=== PATIENT | male | born 1940 | race Caucasian/White ===

== ENCOUNTER 2019-03-14 13:23 | Inpatient (IN) | payer OTHER, MEDICARE ==
[2019-03-14 13:47] VITALS: BMI 29.6
--- NOTE | 2019-03-14 14:04 | PDOC ---
History of Present Illness - General Chief Complaint: Weakness Stated Complaint: Blood Sugar Problem/ LOSS OF APPETITE Time Seen by Provider: 03/14/19 13:59 History Source: Patient, Family Exam Limitations: No Limitations - History of Present Illness Initial Comments: 03/14/19 14:00 Titi Gary is a 79M with PMH Parkinson's c/b autonomic hypotension, CAD s/p CABG , pituitary tumor s/p resection on steroid supplementation, hypothydroidism on Synthroid, BPH, presenting with one week of AMS, decrease of appetite, diarrhea , frequent falls, sent by Dr. Forrester for evaluation. Patient and daughter at bedside. Was recently hospitalized for falls and trauma. Just returned home from physical rehab for Parkinsons's 2 weeks ago, has rn home health 12 hours per day. Per daughter, patient has been having episodes of confusion, agitation, and disorientation that have worsened over the last week, more commonly at night. Will get up out of bed on his own and wander around despite fall precautions and aide. Multiple falls at home, has residual injuries. Says he is on ASA but no AC. Has also been having a week of loose stools, now watery for one day. Wears diaper at home. PO intake poor, nothing but toast and water for a few days. Blood pressure rises and falls due to autonomic disease despite medications, some days feels too weak to ambulate, including today. Denies ONTIVEROS, dizziness, chest pain, SOB, palpitations, abdominal pain, urinary sx , fever. No known allergies. Neuro: Yris Urology: Ashlee Past History - Past Medical History Allergies/Adverse Reactions: Allergies Allergy/AdvReac Type Severity Reaction Status Date / Time No Known Allergies Allergy Verified 03/14/19 13:34 Home Medications: Ambulatory Orders Amlodipine Besylate 5 mg DAILY 03/14/19 Aspirin 81 mg DAILY 03/14/19 Carbidopa/Levodopa [Carbidopa-Levo ER 50-200 Tab] 1 tab TID 03/14/19 Cholecalciferol (Vitamin D3) [Vitamin D3] 1,000 unit DAILY 03/14/19 Finasteride 5 mg DAILY 03/14/19 Fludrocortisone Acetate 0.1 mg DAILY 03/14/19 Hydrocortisone 5 mg DAILY 03/14/19 Hydrocortisone 10 mg DAILY 03/14/19 Levothyroxine [Synthroid -] 75 mcg DAILY 03/14/19 Polyethylene Glycol 3350 17 gm DAILY 03/14/19 Rosuvastatin [Crestor -] 40 mg DAILY 03/14/19 Testosterone Cypionate 200 vial ASDIR 03/14/19 Ubidecarenone [Co Q-10] 30 mg DAILY 03/14/19 Cardiac Disorders: Yes (CAD) COPD: Yes Other medical history: Parkinson, Osteoporosis, hypopituitarism, arthlgia - Surgical History Cardiac Surgery: Yes (Quad bipass) - Psycho Social/Smoking Cessation Hx Smoking History: Former smoker Have you smoked in the past 12 months: Yes If you are a former smoker, when did you quit?: 1967 Information on smoking cessation initiated: No Hx Alcohol Use: No Drug/Substance Use Hx: No Review of Systems - Review of Systems Able to Perform ROS?: Yes Constitutional: Yes: Weakness. No: Chills, Fever HEENTM: Yes: Hearing Loss. No: Eye Pain, Blurred Vision, Mouth Pain, Dental Problems Respiratory: Yes: Cough. No: Orthopnea, Shortness of Breath, Stridor, Wheezing Cardiac (ROS): Yes: Edema. No: Chest Pain, Lightheadedness, Palpitations, Syncope ABD/GI: Yes: Diarrhea, Poor Appetite, Poor Fluid Intake. No: Constipated, Difficulty Swallowing, Nausea, Vomiting : No: Symptoms Reported Musculoskeletal: No: Symptoms Reported Integumentary: Yes: Bruising (arms from falls), Lesions Neurological: Yes: Tremors, Weakness, Unsteady Gait, Ataxia. No: Headache, Numbness, Paresthesia, Dizziness Endocrine: No: Symptoms Reported Hematologic/Lymphatic: Yes: Easy Bruising All Other Systems: Reviewed and Negative *Physical Exam - Vital Signs Last Vital Signs Temp Pulse Resp BP Pulse Ox 98.2 F 70 16 79/49 L 97 03/14/19 13:36 03/14/19 13:36 03/14/19 13:36 03/14/19 13:36 03/14/19 13:36 - Physical Exam General Appearance: Yes: Nourished, Appropriately Dressed, Apparent Distress HEENT: positive: EOMI, Symmetrical, Muffled/Hoarse voice, Hearing Decreased. negative: JORGE ALBERTO (L pupil fixed mydriasis), Normal Voice, Pharynx Normal ( xerostomia), Scleral Icterus (R), Scleral Icterus (L), Pharyngeal Erythema, Tonsillar Exudate, Tonsillar Erythema, Thrush Neck: positive: Trachea midline, Supple. negative: Tender, Carotid bruit, Decreased range of motion, Lymphadenopathy (R), Lymphadenopathy (L) Respiratory/Chest: positive: Lungs Clear, Normal Breath Sounds. negative: Chest Tender, Respiratory Distress, Accessory Muscle Use, Crackles, Rales, Rhonchi, Stridor, Wheezing Cardiovascular: positive: Regular Rhythm, Regular Rate Gastrointestinal/Abdominal: positive: Normal Bowel Sounds, Flat, Soft. negative : Tender, Organomegaly, Pulsatile Mass, Distended, Guarding, Rebound Musculoskeletal: positive: Normal Inspection. negative: CVA Tenderness, Decreased Range of Motion, Vertebral Tenderness Extremity: positive: Normal Capillary Refill, Normal Range of Motion, Pelvis Stable, Pedal Edema (3+), Swelling, Other (no bony tenderness or deformities noted to arms or legs). negative: Normal Inspection (several ecchymoses in various stages of healing noted to both arms and hands, L forearm ulceration), Tender, Calf Tenderness Integumentary: positive: Normal Color, Dry, Warm, Ecchymosis (noted to arms). 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 Too weak to ambulate but moving legs spontaneously. Alert, oriented, speaking in intelligible and logical sentences without thought deficit. Memory testing not performed at this time.) ED Treatment Course - LABORATORY CBC & Chemistry Diagram: 03/15/19 05:30 03/15/19 11:24 Medical Decision Making - Medical Decision Making 03/14/19 14:00 Titi Gary is a 79M with PMH Parkinson's c/b autonomic hypotension, CAD s/p CABG , pituitary tumor s/p resection on steroid supplementation, hypothydroidism on Synthroid, presenting with one week of AMS, decrease of appetite, diarrhea, frequent falls, sent by Dr. Forrester for evaluation. Presentation concerning for AMS in an elderly patient, plus multiple recent falls. High concern for ICH vs. UTI vs. PNA. Will need to role out these causes before determining evidence of worsening Parkinson's disease i.e sundowning vs. dementia. CMP CBC CP Coags UA/UC ECG CXR XR pelvis CT head Labs notable for: - CBC WNL - K 2.8 - BNP 4381 - TSH 0.29 - Free T4 1.51 Repleting potassium with 40mg PO solution. Pending CT head and CXR/pelvis XR at this time. 03/14/19 17:[address] shows no intracranial pathology. C-spine CT shows no fracture CXR shows elevated R hemidiaphragm with no infiltrates or consolidations Evaluation for PNA, HF, ICH all negative. Patient unable to provide urine sample , will straight cath for UA/UC. If UA clean, no obvious infectious or vascular source of AMS/confusion noted. Will admit for weakness, AMS, and high fall risk, patient unable to ambulate or take care of himself appropriately. 03/14/19 18:30 Discussed results with patient and daughter at bedside. Both agree that patient does not need admission at this time given that there is no pathology noted in labs, CXR, CT head. Discussed that patient is not a safe discharge home if he continues to have confusion and AMS at night, high fall risk. Daughter explained that patient home health aide is present at night to take care of patient. Patient wises to return home after UA complete. Discussed patient unwillingness to be admitted with attending. Attending contacted PMD Dr. Forrester with patient, discussion over admission concluded with patient agreeing to stay for further evaluation and neurological workup inpatient. Plan for admission to tele for hypokalemia, unwitnessed falls/syncope , AMS, failure to thrive, weakness. 03/14/19 19:[address] Gagnon regarding patient, accepted to tele under Dr. Mondragon. Discharge - Discharge Information Problems reviewed: Yes Clinical Impression/Diagnosis: Falls frequently, Hypokalemia Altered mental status Qualifiers: Altered mental status type: unspecified Qualified Code(s): R41.82 - Altered mental status, unspecified Condition: Stable Disposition: HOME - Follow up/Referral - Patient Discharge Instructions - Post Discharge Activity
--- NOTE | 2019-03-14 15:24 | EKG ---
Test Reason : Blood Pressure : / mmHG Vent. Rate : 071 BPM Atrial Rate : 055 BPM P-R Int : 000 ms QRS Dur : 120 ms QT Int : 462 ms P-R-T Axes : 000 -18 026 degrees QTc Int : 502 ms POOR DATA QUALITY, INTERPRETATION MAY BE ADVERSELY AFFECTED SINUS RHYTHM LEFT VENTRICULAR HYPERTROPHY WITH QRS WIDENING ABNORMAL ECG Confirmed by PATRICIA ANDERSON MD ([id number]) on 03/14/2019 3:24:05 PM Referred By: Confirmed By:PATRICIA ANDERSON MD
[2019-03-14 15:35] LABS: BASO % 0.4 % (0-2.0); EOS % 0.4 % (0-4.5); HEMOGLOBIN 11.9 GM/dL (11.7-16.9); LYMPH % 6.1 % (8-40); MCH 29.5 pg (25.7-33.7); MEAN CELL VOLUME 86.6 fl (80-96); MEAN PLT VOLUME 7.6 fl (7.5-11.1); MONO % 7.1 % (3.8-10.2); PLATELET COUNT 315 K/MM3 (134-434); RBC 4.04 M/mm3 (4.00-5.60); RDW 15.4 % (11.9-15.9)
[2019-03-14 15:38] LABS: INR 1.18 (0.83-1.09); MAGNESIUM 1.8 mg/dL (1.8-2.4)
[2019-03-14 15:40] LABS: ACTIVATED PTT 25.4 SECONDS (25.2-36.5)
[2019-03-14 16:23] LABS: ALBUMIN 2.8 g/dl (3.4-5.0); BILIRUBIN,TOTAL 0.7 mg/dL (0.2-1); BLOOD UREA NITROGEN 17.6 mg/dL (7-18); CREATININE 2.2 mg/dL (0.55-1.3); TOT PROT 6.3 g/dl (6.4-8.2)
[2019-03-14 16:25] LABS: POTASSIUM 2.8 mmol/L (3.5-5.1)
[2019-03-14] MEDS ORDERED: POTASSIUM CHLORIDE ORAL LIQUID 20 MEQ/15 ML PO ONE (16:28)
[2019-03-14] MEDS ORDERED: POTASSIUM CHLORIDE ORAL LIQUID 20 MEQ/15 ML ONE (16:28)
--- NOTE | 2019-03-14 19:13 | PN ---
Teaching Attending Note Name of Resident: Oscar Mccormick ATTENDING PHYSICIAN STATEMENT I saw and evaluated the patient. I reviewed the resident's note and discussed the case with the resident. I agree with the resident's findings and plan as documented. SUBJECTIVE: Patient is a 79 year old man with PMH Parkinson's (complicated by autonomic hypotension), CAD s/p CABG, Pituitary tumor s/p resection on steroid supplementation and Hypothydroidism presenting with one week of AMS, poor appetite, diarrhea and frequent falls. Was sent by Dr. Forrester for evaluation. Patient was recently hospitalized for falls and trauma. Just returned home from physical rehab for Parkinson's 2 weeks ago. Has home agent 12 hours per day. Per daughter, patient has been having episodes of confusion, agitation, and disorientation that have worsened over the last week, more commonly at night. Will get up out of bed on his own and wander around despite fall precautions and aide. Multiple falls at home - has residual injuries. Says he is on ASA but no AC. Has also been having a week of loose stools, now watery for one day. Wears diapers at home. Oral intake has been poor - nothing but toast and water for a few days. Blood pressure rises and falls due to autonomic disease despite medications, some days feels too weak to ambulate, including today. Denies headache, chest pain, SOB, palpitations, abdominal pain, urinary symptoms, chills or fever. Denies tobacco, alcohol or illicit drug use. Was recently on antibiotics for UTI. Noted to have urinary retention in the ER. FH of brain tumor in his mother. OBJECTIVE: Alert Vital Signs Period Temp Pulse Resp BP Sys/Miguel Pulse Ox Last 24 Hr 98.2 F-98.3 F 69-70 16-17 79-106/49-54 95-97 HEENT: No Jaundice, eye redness or discharge, PERRLA, EOMI. Normocephalic, atraumatic. External ears are normal and hearing is grossly intact. No nasal discharge. Neck: Supple, nontender. No palpable adenopathy or thyromegaly. No JVD Chest: Good effort. Clear to auscultation and percussion. Heart: Regular. No S3, rub or murmur Abdomen: Not distended, soft, nontender and no HSM. No rebound or guarding. Normal bowel sounds. Ext: Peripheral pulses intact. Leg edema. Skin: Warm and dry. No petechiae, rash or ecchymosis. Neuro: Alert. Oriented x3. CN 2-12 grossly intact. Sensation grossly intact in all four extremities and DTR are symmetric. Psych: Appropriate mood and affect. Good insight. Current Medications Generic Name Dose Route Start Last Admin Trade Name Jose Eq PRN Reason Stop Dose Admin Heparin Sodium (Porcine) 5,000 unit 03/14/19 19:30 Heparin - SQ TID [facility] Dextrose/Sodium Chloride 40 meq in 1,000 mls @ 75 mls/hr 03/14/19 19:30 Dextrose 5%-Normal Saline+40 Meq Kcl - IV ASDIR [facility] Abnormal Lab Results 03/14/19 03/14/19 03/14/19 15:00 15:00 15:00 Hct Absolute Neuts (auto) Neutrophils % Lymphocytes % PT with INR 14.00 H INR 1.18 H Potassium 2.8 L* Anion Gap 7 L Creatinine 2.2 H Calcium 8.0 L Phosphorus AST 48 H ALT 12 L Creatine Kinase 476 H B-Natriuretic Peptide Total Protein 6.3 L Albumin 2.8 L TSH Free T4 1.51 H 03/14/19 03/14/19 03/14/19 15:00 15:00 15:00 Hct 35.0 L Absolute Neuts (auto) 8.6 H Neutrophils % 86.0 H Lymphocytes % 6.1 L PT with INR INR Potassium Anion Gap Creatinine Calcium Phosphorus 2.0 L AST ALT Creatine Kinase B-Natriuretic Peptide 4381.6 H Total Protein Albumin TSH 0.29 L Free T4 ASSESSMENT AND PLAN: 1. Altered mental status/Multiple falls - Etiology unclear, but may be multifactorial. Hypotension due to autonomic dysfunction a likely culprit. No acute pathology on head CT. CT scan of C-spine showed C4-5, C5-6 degenerative central canal stenosis but no fracture. CXR shows poor inspiration, cardiomegaly and elevated right hemidiaphragm, but no obvious infiltrate. Implement fall precautions and consult PT. Get ECHO. Rhabdomyolysis may be due to trauma from falls and/or hypophosphatemia. Hypokalemai likely due to diarrhea and poor intake. Will do stool studies including C.diff to investigate diarrhea, give IV KCL, Neutraphos and get CT abdomen/pelvis. Reduce synthroid dose. Urinalysis and EKG pending. Will continue comprehensive care for all of patients comorbid conditions including supportive measures for Parkinson's. 2. Hypoalbuminemia - Possibly due to combined effects of malnutrition and inflammation associated with comorbid chronic conditions. 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 3. PO - Likely partly due to rhabdomyolysis. Will get kidney sonogram, PTH, hydrate gently and monitor urine output. Will consult nephrology and avoid nephrotoxic agents such as NSAIDS, aminoglycosides, contrast dyes and certain Alternative medicine products. 4. Anemia - Likely multifactorial. Will do basic anemia work up including serial stool guaiacs, reticulocyte count and iron studies. 5. DVT prophylaxis - Heparin 5000u sq tid. 6. Advance directives - Full code
[2019-03-14] MEDS ORDERED: D5-NS + 40 MEQ KCL - 40 MEQ/1,000 ML INFUS.BAG IV SCH (19:30)
[2019-03-14] MEDS ORDERED: HYDROCORTISONE 5 MG TABLET PO ONE (19:32)
[2019-03-14] MEDS ORDERED: FINASTERIDE 5 MG TABLET (FP) PO ONE (19:33)
[2019-03-14] MEDS ORDERED: NAPH,MB-DB/K PH,MBDB POWDER PACKET PO ONE (19:40)
[2019-03-14] MEDS: HEPARIN NA (PORCINE) 5,000 UNITS/ML 1ML VIAL SQ SCH (19:50)
[2019-03-14] MEDS ORDERED: SODIUM CHLORIDE 1,000 ML IV SCH (21:15)
--- NOTE | 2019-03-14 21:26 | HP ---
CHIEF COMPLAINT: AMS PCP: Dr. Valerio HISTORY OF PRESENT ILLNESS: This is a 79 y/o male w/ PMHx of Virginie Figueroa parkinson's disease, CAD (s/p quadruple bypass), pituitary tumor (s/p resection 1997),hypothyroidism (on synthroid 75mcg) who presents with 1 week of AMS, diarrhea and falls. As per the patients daughter, the pt has had increasing episodes of confusion during the night for the past week, She states the pt often wakes up from sleep screaming and is disoriented. She also states the pt has been having 3 episodes of watery, foul smelling diarrhea/day for the last five days. The pt was taking an antibiotic for a UTI and finished a month ago. The pt has also had decreased po intake and fluid intake since his symptoms began. He has also fallen 5 times over the past week associated with dizziness before the fall. He normally uses a walker or wheelchair to ambulate due to his Parkinsons. He also reports increased swelling in his lower extremities. He is unsure if he hit his head and has sustained injuries from his falls. He denies recent fever, chills, chest pain, ONTIVEROS, SOB, changes in bladder habits, vision changes. Pt lives at home with his partner and has a 12 hour home health aide. 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 ER course was notable for: (1) Hypokalemia (2.8), Cr- 2.2 (worse than baseline), PO4- 2, AST- 48, Trop negative (2) TSH- 0.29, FT4: 1.51, BNP- 4381.6, CK-[address]- showed C4-5, C5 -6 degenerative central canal stenosis negative for fx's, CT head- negative for acute intracranial bleed, CXR- elevated Rt hemidiaphragm enlarged heart (3)40 KCL PO given in ED, ordered 3 of riders, UA/tox ordered Recent Travel: denies PAST SURGICAL HISTORY: pituitary resection, quadruple bypass Allergies No Known Allergies Allergy (Verified 03/14/19 13:34) HOME MEDICATIONS: Home Medications Medication Instructions Recorded Aspirin 81 mg DAILY 03/14/19 Carbidopa/Levodopa [Carbidopa-Levo 1 tab TID 03/14/19 ER 50-200 Tab] Finasteride 5 mg DAILY 03/14/19 Fludrocortisone Acetate 0.1 mg DAILY 03/14/19 Hydrocortisone 5 mg DAILY 03/14/19 Hydrocortisone 10 mg DAILY 03/14/19 Levothyroxine [Synthroid -] 75 mcg DAILY 03/14/19 Polyethylene Glycol 3350 17 gm DAILY 03/14/19 Rosuvastatin [Crestor -] 40 mg DAILY 03/14/19 Ubidecarenone [Co Q-10] 30 mg DAILY 03/14/19 REVIEW OF SYSTEMS Negative except whats listed in HPI PHYSICAL EXAMINATION Vital Signs - 24 hr 03/14/19 03/14/19 03/14/19 13:36 14:00 14:15 Temperature 98.2 F 98.3 F Pulse Rate 70 Pulse Rate [ 69 Right Brachial] Respiratory 16 17 Rate Blood Pressure 79/49 L Blood Pressure 106/54 L [Right Arm] O2 Sat by Pulse 97 97 95 Oximetry (%) GENERAL: Awake, alert, and fully oriented, in no acute distress. HEAD: Normal with no signs of trauma. LUNGS: Breath sounds equal, clear to auscultation bilaterally. No wheezes, and no crackles. No accessory muscle use. HEART: Regular rate and rhythm, normal S1 and S2 without murmur, rub or gallop. ABDOMEN: Soft, nontender, not distended, normoactive bowel sounds, no guarding, no rebound, no masses. UPPER EXTREMITIES: 2+ pulses, warm, well-perfused. No cyanosis. No clubbing. No peripheral edema. LOWER EXTREMITIES: 2+ pulses, warm, well-perfused. 2/5 LE against resistance, able to lift legs on passive ROM (3/5), normal sensation. No calf tenderness. 2 + peripheral edema. NEUROLOGICAL: Cranial nerves II-XII intact. Normal speech. PSYCHIATRIC: Cooperative. Good eye contact. Appropriate mood and affect. SKIN: Warm, dry,bruising b/l arms. Laboratory Results - last 24 hr 03/14/19 03/14/19 03/14/19 14:01 15:00 15:00 WBC RBC Hgb Hct MCV MCH MCHC RDW Plt Count MPV Absolute Neuts (auto) Neutrophils % Lymphocytes % Monocytes % Eosinophils % Basophils % Nucleated RBC % PT with INR 14.00 H INR 1.18 H PTT (Actin FS) 25.4 Sodium Potassium Chloride Carbon Dioxide Anion Gap BUN Creatinine Est GFR (CKD-EPI)AfAm Est GFR (CKD-EPI)NonAf POC Glucometer 72 Random Glucose Calcium Phosphorus Magnesium 1.8 Total Bilirubin AST ALT Alkaline Phosphatase Creatine Kinase Creatine Kinase Index CK-MB (CK-2) Troponin I B-Natriuretic Peptide Total Protein Albumin TSH Free T4 1.51 H 03/14/19 03/14/19 03/14/19 15:00 15:00 15:00 WBC 10.0 RBC 4.04 Hgb 11.9 Hct 35.0 L MCV 86.6 MCH 29.5 MCHC 34.0 RDW 15.4 Plt Count 315 MPV 7.6 Absolute Neuts (auto) 8.6 H Neutrophils % 86.0 H Lymphocytes % 6.1 L Monocytes % 7.1 Eosinophils % 0.4 Basophils % 0.4 Nucleated RBC % 0 PT with INR INR PTT (Actin FS) Sodium 139 Potassium 2.8 L* Chloride 100 Carbon Dioxide 32 Anion Gap 7 L BUN 17.6 Creatinine 2.2 H Est GFR (CKD-EPI)AfAm 32.06 Est GFR (CKD-EPI)NonAf 27.67 POC Glucometer Random Glucose 76 Calcium 8.0 L Phosphorus Magnesium Total Bilirubin 0.7 AST 48 H ALT 12 L Alkaline Phosphatase 98 Creatine Kinase 476 H Creatine Kinase Index 0.7 CK-MB (CK-2) 3.5 Troponin I 0.02 B-Natriuretic Peptide 4381.6 H Total Protein 6.3 L Albumin 2.8 L TSH Free T4 03/14/19 15:00 WBC RBC 0. Hgb Hct MCV MCH MCHC RDW Plt Count MPV Absolute Neuts (auto) Neutrophils % Lymphocytes % Monocytes % Eosinophils % Basophils % Nucleated RBC % PT with INR INR PTT (Actin FS) Sodium Potassium Chloride Carbon Dioxide Anion Gap BUN Creatinine Est GFR (CKD-EPI)AfAm Est GFR (CKD-EPI)NonAf POC Glucometer Random Glucose Calcium Phosphorus 2.0 L Magnesium Total Bilirubin AST ALT Alkaline Phosphatase Creatine Kinase Creatine Kinase Index CK-MB (CK-2) Troponin I B-Natriuretic Peptide Total Protein Albumin TSH 0.29 L Free T4 ASSESSMENT/PLAN: This is a 79 y/o male w/ PMHx of Virginie Figueroa parkinson's disease, CAD (s/p quadruple bypass), pituitary tumor (s/p resection 1997),hypothyroidism (on synthroid 75mcg) who presents with 1 week of AMS, diarrhea and falls. As per the patients daughter, the pt has had increasing episodes of confusion during the night for the past week, She states the pt often wakes up from sleep screaming and is disoriented. #Presyncopal fall -> likely 2/2 Shy norman hx/dehydration/Iatrogenic Hyperthyroidism - admit to tele confirm lack of arrythmia given TSH - CT head negative for acute intracranial hemmorhage, CT cervical spine- C4-5, C5-6 degenerative central canal stenosis with signs of fracture. CT hip/pelvis is pending. - IVF hydration given recent diarrhea - orthostatic vitals prior to fluids given negative - TSH-0.29, FT4- 1.51 signifying iatrogenic hyperthyroidism given pt has no pituitary. For pt to be still producing TSH, likely ectopic production elsewhere. Would need radioactive uptake scan to assess but likely already been done years ago as o/p. - will decrease synthroid to 50mcg - Consult endo (Dr. Menjivar) for recs. - Seizure/Fall precautions implemented - PT eval in AM - echo to eval cardiac valvular function - ekg depicting prolonged QTc >500 so will hold all prolonging agents and rpt EKG in AM. #Diarrhea -> likely colitis/rule out c diff - doubt ischemic at this time given cx findings and lack of AF hx, althought pt has risk factor CAD. - CT Abd pelvis without contrast- no signs of colitis, diverticulitis, just diverticulosis. - no abx at this time, without sign of infn or fever, along side of ? c diff. - ordered c diff, fecal calprotectin, stool c&s, ova and parasites in the interim. PO on CKD -> likely intra-renal 2/2 rhabdomyolysis - possibly due to recent trauma or hypophosphatemia 2/2 diarrhea and poor po intake - CK-476m will rpt CK with morning labs to ensure its improving. - gentle hydration IV NS 42 cc/hr given Cardiac hx - hold nephrotoxic agents, no contrast agents at this time - renal sono, PTH - Renal consulted (Dr. Correa) for PO on CKD recommendations. - family states PCP would like nephro to eval the pt. - BNP elevated likely due to poor renal clearance - hypophosphatemia/hypokalemia repleted, Na phos 2 packets given, 3 runs of K rider ordered - will rpt lytes in AM - poor ekg quality due to pt shaking (per pt's daughter). - will rpt EKG once on tele DVT PPX : Heparin 5K TID Visit type - Emergency Visit Emergency Visit: Yes ED Registration Date: 03/14/19 Care time: The patient presented to the Emergency Department on the above date and was hospitalized for further evaluation of their emergent condition. - New Patient This patient is new to me today: Yes Date on this admission: 03/17/19 - Critical Care Critical Care patient: No ATTENDING PHYSICIAN STATEMENT I saw and evaluated the patient. I reviewed the resident's note and discussed the case with the resident. I agree with the resident's findings and plan as documented. SUBJECTIVE: OBJECTIVE: ASSESSMENT AND PLAN:
--- NOTE | 2019-03-14 22:28 | PDOC ---
Documentation entered by Claudio Gonzalez SCRIBE, acting as scribe for Wicho Bradford MD. Wicho Bradford MD: This documentation has been prepared by the Carlos gonzalez Daniel, SCRIBE, under my direction and personally reviewed by me in its entirety. I confirm that the documentation accurately reflects all work, treatment, procedures, and medical decision making performed by me. Attending Attestation - Resident Resident Name: EmilyDaquan - ED Attending Attestation I have performed the following: I have examined & evaluated the patient, The case was reviewed & discussed with the resident, I agree w/resident's findings & plan, Exceptions are as noted - HPI HPI: 03/14/19 14:57 The patient is a 79 year old with a past medical history of Parkinson's c/b autonomic hypotension, CAD s/p CABG, pituitary tumor s/p resection on steroid supplementation, hypothyroidism here today for evaluation of AMS, diarrhea, and multiple falls. The patient was discharged from rehab recently after a fall and has been noted by family and home health aide be more agitated and confused in the past week. Patient reports that in the past week he has had multiple episodes of watery diarrhea, felt weak and tired, and has had multiple falls but is not able to provide a good reason for his falls. Unknown LOC. Family also notes that the patient has had poor PO intake over the past week. Patient denies headache, lightheadedness, focal weakness/numbness. Denies fever , chills. Denies chest pain, shortness of breath. Denies nausea, vomiting, abdominal pain. Allergies: NKA PCP: Elsa Forrester - Physicial Exam PE: 03/14/19 14:58 GENERAL: Awake, alert, and fully oriented, in no acute distress. Chronically ill appearing. HEAD: No signs of trauma EYES: PERRLA, EOMI, sclera anicteric, conjunctiva clear ENT: Hearing grossly normal, nares patent, oropharynx clear without exudates. MM. NECK: Normal ROM, supple, no lymphadenopathy, JVD, or masses BACK: No midline cervical, thoracic, or lumbar ttp LUNGS: Breath sounds equal, clear to auscultation bilaterally. No wheezes, and no crackles HEART: Regular rate and rhythm, normal S1 and S2, no murmurs, rubs or gallops ABDOMEN: Soft, nontender, normoactive bowel sounds. No guarding, no rebound. No masses EXTREMITIES: Normal range of motion, no edema. No cords, erythema, or tenderness NEUROLOGICAL: +masked facies. Normal speech, cranial nerves intact, 5/5 strength in all 4 extremities, normal sensation to light touch in all 4 extremities, gait deferred SKIN: Multiple bruises in various stages of healing and superficial abrasions to entire body - Medical Decision Making 03/14/19 19:24 79yo M with MMP including parkinsons, recently DC from rehab weeks ago presents to the ED with failure to thrive. Vitals initially hypotensive but improved w/o intervention 110/70, consistent with known autonomic dysfx W/u remarkable for hypokalemia and PO to 2.2 CTH/c-spine neg UA pending Results discussed with Dr. 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
[2019-03-14] MEDS ORDERED: PT OWN MED DRAWER 7, Y5N ONE (22:51)
[2019-03-14] MEDS ORDERED: KCL 10 MEQ IVPB 10 MEQ/100 ML INFUS.BAG IVPB ONE (23:44)
[2019-03-14] MEDS ORDERED: HEPARIN NA (PORCINE) 5,000 UNITS/ML 1ML VIAL ONE (23:44)
[2019-03-14] MEDS ORDERED: CARBIDOPA/LEVODOPA 25/100 TABLET (FP) ONE (23:44)
[2019-03-15] MEDS: KCL 10 MEQ IVPB 10 MEQ/100 ML INFUS.BAG IVPB SCH ×8 (00:01→22:16)
[2019-03-15] MEDS ORDERED: KCL 10 MEQ IVPB 10 MEQ/100 ML INFUS.BAG IVPB ONE ×6 (02:43→16:38)
[2019-03-15] MEDS ORDERED: HEPARIN NA (PORCINE) 5,000 UNITS/ML 1ML VIAL ONE (06:17)
[2019-03-15] MEDS: HEPARIN NA (PORCINE) 5,000 UNITS/ML 1ML VIAL SQ SCH ×3 (06:29→21:32)
[2019-03-15 06:30] LABS: BASO % 0.9 % (0-2.0); EOS % 3.3 % (0-4.5); HEMATOCRIT 30.5 % (35.4-49); HEMOGLOBIN 10.6 GM/dL (11.7-16.9); LYMPH % 23.4 % (8-40); MCH 29.8 pg (25.7-33.7); MCHC 34.7 g/dl (32.0-35.9); MEAN CELL VOLUME 85.9 fl (80-96); MEAN PLT VOLUME 7.1 fl (7.5-11.1); MONO % 7.7 % (3.8-10.2); NEUT % 64.7 % (42.8-82.8); PLATELET COUNT 270 K/MM3 (134-434); RBC 3.55 M/mm3 (4.00-5.60); RDW 15.3 % (11.9-15.9)
[2019-03-15] MEDS: LEVOTHYROXINE NA 50 MCG TABLET (FP) PO SCH ×2 (06:30→09:09)
[2019-03-15 06:56] LABS: ALBUMIN 2.2 g/dl (3.4-5.0); BILIRUBIN,TOTAL 0.4 mg/dL (0.2-1); BLOOD UREA NITROGEN 16.8 mg/dL (7-18); CALCIUM 7.2 mg/dL (8.5-10.1); CREATININE 2.6 mg/dL (0.55-1.3); PHOSPHOROUS 1.4 mg/dL (2.5-4.9); TOT PROT 5.2 g/dl (6.4-8.2)
[2019-03-15 06:58] LABS: POTASSIUM 2.2 mmol/L (3.5-5.1)
[2019-03-15] MEDS ORDERED: SODIUM PHOSPHATE - 30 MM in DEXTROSE 5%-WATER - 250 ML IVPB ONE (09:51)
[2019-03-15] MEDS ORDERED: ASPIRIN 81 MG CHEWABLE TABLETS PO SCH (10:00)
[2019-03-15] MEDS ORDERED: amLODIPine BESYLATE 5 MG TABLET (FP) PO SCH (10:00)
[2019-03-15] MEDS ORDERED: UBIDECARENONE 30 MG PO SCH (10:00)
[2019-03-15] MEDS ORDERED: FINASTERIDE 5 MG TABLET (FP) PO SCH (10:00)
[2019-03-15] MEDS ORDERED: LEVOTHYROXINE NA 75 MCG TABLET (FP) PO SCH (10:00)
[2019-03-15] MEDS ORDERED: MUPIROCIN 2% TOPICAL OINTMENT FOR DECOLONIZATION NS SCH (10:00)
[2019-03-15] MEDS ORDERED: POTASSIUM CHLORIDE TABS 20 MEQ TABLET.ER (FP) PO ONE ×5 (10:00→17:27)
[2019-03-15] MEDS ORDERED: CHOLECALCIFEROL (VIT D3) 1,000 UNIT (25 MCG) TABLET PO SCH (10:00)
[2019-03-15] MEDS ORDERED: ASPIRIN 81 MG CHEWABLE TABLETS ONE (10:03)
[2019-03-15] MEDS ORDERED: POTASSIUM CHLORIDE TABS 10 MEQ TABLET.ER (FP) ONE ×2 (10:04→15:15)
[2019-03-15] MEDS ORDERED: amLODIPine BESYLATE 5 MG TABLET (FP) ONE (10:04)
--- NOTE | 2019-03-15 10:59 | ECHO ---
Name: JUANIS ABBOTT Exam:Adult Echocardiogram Study Date: 03/15/2019 08:35 AM Age: 79 yrs Reason For Study: Syncope w/u Height: 65 in Weight: 178 lb BSA: 1.9 m2 MMode/2D Measurements & Calculations IVSd: 1.5 cm Ao root diam: 2.6 cm LVIDd: 4.2 cm LA dimension: 5.0 cm LVIDs: 2.6 cm ACS: 1.9 cm LVPWd: 1.2 cm EDV(Teich): 79.0 ml LVOT diam: 2.0 cm ESV(Teich): 25.7 ml RV S Sebastien: 12.7 cm/sec Doppler Measurements & Calculations MV E max sebastien: 87.9 cm/sec Ao V2 max: 128.6 cm/sec MV A max sebastien: 83.4 cm/sec Ao max P.6 mmHg MV E/A: 1.1 Ao V2 mean: 87.4 cm/sec MV dec time: 0.17 sec Ao mean P.5 mmHg Ao V2 VTI: 26.2 cm SIVA(I,D): 2.5 cm2 SIVA(V,D): 2.0 cm2 LV V1 max P.1 mmHg MR max sebastien: 429.4 cm/sec LV V1 mean P.7 mmHg MR max P.8 mmHg LV V1 max: 87.9 cm/sec LV V1 mean: 60.9 cm/sec LV V1 VTI: 21.9 cm SV(LVOT): 65.6 ml TR max sebastien: 220.3 cm/sec TR max P.5 mmHg PA V2 max: 65.6 cm/sec Med Peak E' Sebastien: 9.6 cm/sec PA max P.7 mmHg Med E/e': 9.2 Lat Peak E' Sebastien: 7.9 cm/sec Lat E/e': 11.1 Left Ventricle Left ventricular systolic function is normal. Ejection Fraction = 55-60%. Right Ventricle The right ventricle is grossly normal size. The right ventricular systolic function is grossly normal . Atria The left atrium is moderately dilated. Mitral Valve The mitral valve is grossly normal. There is no mitral valve stenosis. There is mild mitral regurgita tion. Tricuspid Valve The tricuspid valve is normal in structure and function. There is mild tricuspid regurgitation. Aortic Valve There is mild aortic sclerosis.;. No hemodynamically significant valvular aortic stenosis. No aortic regurgitation is present. Pulmonic Valve The pulmonic valve is not well seen, but is grossly normal. There is no pulmonic valvular stenosis. Great Vessels The aortic root is normal size. Pericardium/Pleura There is no pericardial effusion. Interpretation Summary Left ventricular systolic function is normal. Ejection Fraction = 55-60%. The left atrium is moderately dilated. There is mild mitral regurgitation. There is mild tricuspid regurgitation. There is mild aortic sclerosis.; There is no pericardial effusion. MD [place] *Smith 03/15/2019 10:59 AM
--- NOTE | 2019-03-15 11:36 | EKG ---
Test Reason : Blood Pressure : / mmHG Vent. Rate : 073 BPM Atrial Rate : 073 BPM P-R Int : 198 ms QRS Dur : 116 ms QT Int : 432 ms P-R-T Axes : 068 -14 -38 degrees QTc Int : 475 ms POOR DATA QUALITY, INTERPRETATION MAY BE ADVERSELY AFFECTED NORMAL SINUS RHYTHM CANNOT RULE OUT ANTERIOR INFARCT , AGE UNDETERMINED NONSPECIFIC ST ABNORMALITY ABNORMAL ECG WHEN COMPARED WITH ECG OF 14-MAR-2019 23:20, PREMATURE SUPRAVENTRICULAR COMPLEXES ARE NO LONGER PRESENT Confirmed by OPAL DODSON MD ([id number]) on 03/15/2019 11:36:06 AM Referred By: Confirmed By:OPAL DODSON MD
--- NOTE | 2019-03-15 11:38 | EKG ---
Test Reason : Blood Pressure : / mmHG Vent. Rate : 071 BPM Atrial Rate : 071 BPM P-R Int : 184 ms QRS Dur : 116 ms QT Int : 466 ms P-R-T Axes : 004 -16 -17 degrees QTc Int : 506 ms SINUS RHYTHM WITH PREMATURE SUPRAVENTRICULAR COMPLEXES NONSPECIFIC ST ABNORMALITY PROLONGED QT ABNORMAL ECG POOR DATA QUALITY, INTERPRETATION MAY BE ADVERSELY AFFECTED Confirmed by OPAL DODSON MD ([id number]) on 03/15/2019 11:38:06 AM Referred By: Confirmed By:OPAL DODSON MD
[2019-03-15 11:39] LABS: URINE APPEARANCE CLEAR; URINE BILIRUBIN NEGATIVE (NEGATIVE); URINE COLOR YELLOW; URINE GLUCOSE (UA) NEGATIVE (NEGATIVE); URINE KETONE NEGATIVE (NEGATIVE); URINE LEUK ESTERASE 3+ (NEGATIVE); URINE NITRITE POSITIVE (NEGATIVE); URINE PROTEIN 2+ (NEGATIVE); URINE UROBILINOGEN 0.2 mg/dL (0.2-1.0); YEAST REVIEW (NEGATIVE)
--- NOTE | 2019-03-15 11:50 | CONSULT ---
Consultation: REQUESTING PROVIDER: CONSULT REQUEST: We have been asked to medically evaluate this patient for ( specify). HISTORY OF PRESENT ILLNESS: REVIEW OF SYSTEMS: CONSTITUTIONAL: Absent: fever, chills, diaphoresis, generalized weakness, malaise, loss of appetite, weight change HEENT: Absent: rhinorrhea, nasal congestion, throat pain, throat swelling, difficulty swallowing, mouth swelling, ear pain, eye pain, visual changes CARDIOVASCULAR: Absent: chest pain, syncope, palpitations, irregular heart rate, lightheadedness , peripheral edema RESPIRATORY: Absent: cough, shortness of breath, dyspnea with exertion, orthopnea, wheezing, stridor, hemoptysis GASTROINTESTINAL: Absent: abdominal pain, abdominal distension, nausea, vomiting, diarrhea, constipation, melena, hematochezia GENITOURINARY: Absent: dysuria, frequency, urgency, hesitancy, hematuria, flank pain, genital pain MUSCULOSKELETAL: Absent: myalgia, arthralgia, joint swelling, back pain, neck pain SKIN: Absent: rash, itching, pallor HEMATOLOGIC/IMMUNOLOGIC: Absent: easy bleeding, easy bruising, lymphadenopathy, frequent infections ENDOCRINE: Absent: unexplained weight gain, unexplained weight loss, heat intolerance, cold intolerance NEUROLOGIC: Absent: headache, focal weakness or paresthesias, dizziness, unsteady gait, seizure, mental status changes, bladder or bowel incontinence PSYCHIATRIC: Absent: anxiety, depression, suicidal or homicidal ideation, hallucinations. PHYSICAL EXAMINATION Vital Signs - 24 hr 03/14/19 03/14/19 03/14/19 13:36 14:00 14:15 Temperature 98.2 F 98.3 F Pulse Rate 70 Pulse Rate [ 69 Right Brachial] Pulse Rate [ Right Radial] Respiratory 16 17 Rate Blood Pressure 79/49 L Blood Pressure 106/54 L [Right Arm] O2 Sat by Pulse 97 97 95 Oximetry (%) 03/14/19 03/14/19 03/15/19 19:30 23:05 01:20 Temperature Pulse Rate Pulse Rate [ 87 72 68 Right Brachial] Pulse Rate [ Right Radial] Respiratory 20 20 17 Rate Blood Pressure Blood Pressure 116/50 L 97/47 L 122/68 [Right Arm] O2 Sat by Pulse 95 95 95 Oximetry (%) 03/15/19 03/15/19 03/15/19 04:28 07:18 07:25 Temperature 97.6 F 98.4 F 98.5 F Pulse Rate Pulse Rate [ 77 72 Right Brachial] Pulse Rate [ 75 Right Radial] Respiratory 20 20 15 Rate Blood Pressure Blood Pressure 121/57 L 123/71 130/66 [Right Arm] O2 Sat by Pulse 97 95 94 L Oximetry (%) 03/15/19 03/15/19 07:35 12:26 Temperature Pulse Rate Pulse Rate [ 78 Right Brachial] Pulse Rate [ 90 78 Right Radial] Respiratory 20 20 Rate Blood Pressure Blood Pressure 130/71 131/66 [Right Arm] O2 Sat by Pulse 99 100 Oximetry (%) GENERAL: Awake, alert, and fully oriented, in no acute distress. HEAD: Normal with no signs of trauma. EYES: Pupils equal, round and reactive to light, extraocular movements intact, sclera anicteric, conjunctiva clear. No lid lag. EARS, NOSE, THROAT: Ears normal, nares patent, oropharynx clear without exudates. Moist mucous membranes. NECK: Normal range of motion, supple without lymphadenopathy, JVD, or masses. LUNGS: Breath sounds equal, clear to auscultation bilaterally. No wheezes, and no crackles. No accessory muscle use. HEART: Regular rate and rhythm, normal S1 and S2 without murmur, rub or gallop. ABDOMEN: Soft, nontender, not distended, normoactive bowel sounds, no guarding, no rebound, no masses. No hepatomegaly or splenomegaly. MUSCULOSKELETAL: Normal range of motion at all joints. No bony deformities or tenderness. No CVA tenderness. UPPER EXTREMITIES: 2+ pulses, warm, well-perfused. No cyanosis. No clubbing. Cap refill <2 seconds. No peripheral edema. LOWER EXTREMITIES: 2+ pulses, warm, well-perfused. No calf tenderness. No peripheral edema. NEUROLOGICAL: Cranial nerves II-XII intact. Normal speech. Normal gait. PSYCHIATRIC: Cooperative. Good eye contact. Appropriate mood and affect. SKIN: Warm, dry, normal turgor, no rashes or lesions noted. Laboratory Results - last 24 hr 03/14/19 03/14/19 03/14/19 14:01 15:00 15:00 WBC RBC Hgb Hct MCV MCH MCHC RDW Plt Count MPV Absolute Neuts (auto) Neutrophils % Lymphocytes % Monocytes % Eosinophils % Basophils % Nucleated RBC % PT with INR 14.00 H INR 1.18 H PTT (Actin FS) 25.4 Sodium Potassium Chloride Carbon Dioxide Anion Gap BUN Creatinine Est GFR (CKD-EPI)AfAm Est GFR (CKD-EPI)NonAf POC Glucometer 72 Random Glucose Calcium Phosphorus Magnesium 1.8 Total Bilirubin AST ALT Alkaline Phosphatase Creatine Kinase Creatine Kinase Index CK-MB (CK-2) Troponin I B-Natriuretic Peptide Total Protein Albumin TSH Free T4 1.51 H Urine Color Urine Appearance Urine pH Ur Specific [place] Urine Protein Urine Glucose (UA) Urine Ketones Urine Blood Urine Nitrite Urine Bilirubin Urine Urobilinogen Ur Leukocyte Esterase Urine WBC (Auto) Urine RBC (Auto) Urine Casts (Auto) U Epithel Cells (Auto) Urine Bacteria (Auto) Urine Yeast (Auto) Opiates Screen Methadone Screen Barbiturate Screen Phencyclidine Screen Ur Amphetamines Screen MDMA (Ecstasy) Screen Benzodiazepines Screen Cocaine Screen U Marijuana (THC) Screen 03/14/19 03/14/19 03/14/19 15:00 15:00 15:00 WBC 10.0 RBC 4.04 Hgb 11.9 Hct 35.0 L MCV 86.6 MCH 29.5 MCHC 34.0 RDW 15.4 Plt Count 315 MPV 7.6 Absolute Neuts (auto) 8.6 H Neutrophils % 86.0 H Lymphocytes % 6.1 L Monocytes % 7.1 Eosinophils % 0.4 Basophils % 0.4 Nucleated RBC % 0 PT with INR INR PTT (Actin FS) Sodium 139 Potassium 2.8 L* Chloride 100 Carbon Dioxide 32 Anion Gap 7 L BUN 17.6 Creatinine 2.2 H Est GFR (CKD-EPI)AfAm 32.06 Est GFR (CKD-EPI)NonAf 27.67 POC Glucometer Random Glucose 76 Calcium 8.0 L Phosphorus Magnesium Total Bilirubin 0.7 AST 48 H ALT 12 L Alkaline Phosphatase 98 Creatine Kinase 476 H Creatine Kinase Index 0.7 CK-MB (CK-2) 3.5 Troponin I 0.02 B-Natriuretic Peptide 4381.6 H Total Protein 6.3 L Albumin 2.8 L TSH Free T4 Urine Color Urine Appearance Urine pH Ur Specific [place] Urine Protein Urine Glucose (UA) Urine Ketones Urine Blood Urine Nitrite Urine Bilirubin Urine Urobilinogen Ur Leukocyte Esterase Urine WBC (Auto) Urine RBC (Auto) Urine Casts (Auto) U Epithel Cells (Auto) Urine Bacteria (Auto) Urine Yeast (Auto) Opiates Screen Methadone Screen Barbiturate Screen Phencyclidine Screen Ur Amphetamines Screen MDMA (Ecstasy) Screen Benzodiazepines Screen Cocaine Screen U Marijuana (THC) Screen 03/14/19 03/15/19 03/15/19 15:00 05:30 05:30 WBC 8.0 RBC 3.55 L Hgb 10.6 L Hct 30.5 L MCV 85.9 MCH 29.8 MCHC 34.7 RDW 15.3 Plt Count 270 MPV 7.1 L Absolute Neuts (auto) 5.2 Neutrophils % 64.7 D Lymphocytes % 23.4 D Monocytes % 7.7 Eosinophils % 3.3 D Basophils % 0.9 Nucleated RBC % 0 PT with INR INR PTT (Actin FS) Sodium 142 Potassium 2.2 L* Chloride 104 Carbon Dioxide 30 Anion Gap 8 BUN 16.8 Creatinine 2.6 H Est GFR (CKD-EPI)AfAm 26.20 Est GFR (CKD-EPI)NonAf 22.61 POC Glucometer Random Glucose 64 L Calcium 7.2 L Phosphorus 2.0 L 1.4 L Magnesium 2.0 Total Bilirubin 0.4 AST 40 H ALT 7 L Alkaline Phosphatase 86 Creatine Kinase Creatine Kinase Index CK-MB (CK-2) Troponin I B-Natriuretic Peptide Total Protein 5.2 L Albumin 2.2 L TSH 0.29 L Free T4 Urine Color Urine Appearance Urine pH Ur Specific [place] Urine Protein Urine Glucose (UA) Urine Ketones Urine Blood Urine Nitrite Urine Bilirubin Urine Urobilinogen Ur Leukocyte Esterase Urine WBC (Auto) Urine RBC (Auto) Urine Casts (Auto) U Epithel Cells (Auto) Urine Bacteria (Auto) Urine Yeast (Auto) Opiates Screen Methadone Screen Barbiturate Screen Phencyclidine Screen Ur Amphetamines Screen MDMA (Ecstasy) Screen Benzodiazepines Screen Cocaine Screen U Marijuana (THC) Screen 03/15/19 03/15/19 03/15/19 05:30 11:10 11:10 WBC RBC Hgb Hct MCV MCH MCHC RDW Plt Count MPV Absolute Neuts (auto) Neutrophils % Lymphocytes % Monocytes % Eosinophils % Basophils % Nucleated RBC % PT with INR INR PTT (Actin FS) Sodium Potassium Chloride Carbon Dioxide Anion Gap BUN Creatinine Est GFR (CKD-EPI)AfAm Est GFR (CKD-EPI)NonAf POC Glucometer Random Glucose Calcium Phosphorus Magnesium Total Bilirubin AST ALT Alkaline Phosphatase Creatine Kinase 402 H Creatine Kinase Index 0.7 CK-MB (CK-2) 3.1 Troponin I 0.03 B-Natriuretic Peptide Total Protein Albumin TSH Free T4 Urine Color Yellow Urine Appearance Clear Urine pH 6.0 Ur Specific [place] 1.007 L Urine Protein 2+ H Urine Glucose (UA) Negative Urine Ketones Negative Urine Blood 2+ H Urine Nitrite Positive H Urine Bilirubin Negative Urine Urobilinogen 0.2 Ur Leukocyte Esterase 3+ H Urine WBC (Auto) 10-15 Urine RBC (Auto) 0-4 Urine Casts (Auto) 0-8 U Epithel Cells (Auto) 0-5 Urine Bacteria (Auto) Positive Urine Yeast (Auto) Review A* Opiates Screen Negative Methadone Screen Negative Barbiturate Screen Negative Phencyclidine Screen Negative Ur Amphetamines Screen Negative MDMA (Ecstasy) Screen Negative Benzodiazepines Screen Negative Cocaine Screen Negative U Marijuana (THC) Screen Negative 03/15/19 11:24 WBC RBC Hgb Hct MCV MCH MCHC RDW Plt Count MPV Absolute Neuts (auto) Neutrophils % Lymphocytes % Monocytes % Eosinophils % Basophils % Nucleated RBC % PT with INR INR PTT (Actin FS) Sodium 143 Potassium 2.5 L* Chloride 105 Carbon Dioxide 30 Anion Gap 7 L BUN 16.1 Creatinine 2.7 H Est GFR (CKD-EPI)AfAm 25.03 Est GFR (CKD-EPI)NonAf 21.60 POC Glucometer Random Glucose 77 Calcium 7.5 L Phosphorus Magnesium 1.8 Total Bilirubin AST ALT Alkaline Phosphatase Creatine Kinase Creatine Kinase Index CK-MB (CK-2) Troponin I B-Natriuretic Peptide Total Protein Albumin TSH Free T4 Urine Color Urine Appearance Urine pH Ur Specific [place] Urine Protein Urine Glucose (UA) Urine Ketones Urine Blood Urine Nitrite Urine Bilirubin Urine Urobilinogen Ur Leukocyte Esterase Urine WBC (Auto) Urine RBC (Auto) Urine Casts (Auto) U Epithel Cells (Auto) Urine Bacteria (Auto) Urine Yeast (Auto) Opiates Screen Methadone Screen Barbiturate Screen Phencyclidine Screen Ur Amphetamines Screen MDMA (Ecstasy) Screen Benzodiazepines Screen Cocaine Screen U Marijuana (THC) Screen Active Medications Generic Name Dose Route Start Last Admin Trade Name Freq PRN Reason Stop Dose Admin Amlodipine Besylate 5 mg 03/15/19 10:00 03/15/19 10:22 Norvasc - PO 5 mg DAILY [facility] Administration Aspirin 81 mg 03/15/19 10:00 03/15/19 10:20 Asa - PO 81 mg DAILY [facility]AL[facility] Administration Carbidopa/Levodopa 1 combo 03/15/19 14:00 Sinemet *Cr* 50/200 - PO TID [facility] Chlorhexidine Gluconate 1 applic 03/15/19 22:00 Hibiclens For Decolonization - TP HS [facility] Cholecalciferol 1,000 unit 03/15/19 10:00 Vitamin D3 - PO DAILY [facility] Finasteride 5 mg 03/15/19 10:00 Proscar - PO DAILY [facility] Fludrocortisone Acetate 0.1 mg 03/15/19 10:00 Florinef - PO DAILY [facility] Heparin Sodium (Porcine) 5,000 unit 03/14/19 19:30 03/15/19 06:29 Heparin - SQ 5,000 unit TID [facility] Administration Sodium Chloride 1,000 mls @ 42 mls/hr 03/14/19 21:15 03/15/19 00:00 Normal Saline - IV 42 mls/hr ASDIR OSWALDO Administration Sodium Phosphate 30 mm/ 260 mls @ 62.5 mls/hr 03/15/19 09:51 03/15/19 12:15 Dextrose IVPB 03/15/19 14:00 62.5 mls/hr ONCE ONE Administration Levothyroxine Sodium 50 mcg 03/16/19 07:00 Synthroid - PO DAILY@0700 [facility] Mupirocin 1 applic 03/15/19 10:00 Bactroban Ointment (For Decolonization) - NS 03/20/19 09:59 BID [facility] Potassium Chloride 20 meq 03/15/19 14:00 K-Dur - PO 03/15/19 14:01 ONCE ONE Rosuvastatin Calcium 10 mg 03/15/19 22:00 Crestor - PO [facility] ASSESSMENT/PLAN: Dispo: We will continue to follow the patient. Thank you for this consultative opportunity. EKG reviewed. Do do see any acute or significant changes consistent with his severe hypokalemia. No arrhythmias noted. PLAN: Can be safely monitored on cardiac telemetry. Will aggressive aggressive repletion of K+ (at least 100meq to increase by 1gm/ dL) Please call for any change in condition or questions. Dr Hernandez <Deuce Hernandez - Last Filed: 03/15/19 13:28> Consultation: REQUESTING PROVIDER: CONSULT REQUEST: We have been asked to medically evaluate this patient for ICU admission due to Hypokalemia. HISTORY OF PRESENT ILLNESS: 79 y/o/m with PMHx of Virginie Figueroa parkinson's disease, CAD (s/p quadruple bypass ), pituitary tumor (s/p resection 1997),hypothyroidism (on synthroid 75mcg) who presented to ED with 1 week of AMS, diarrhea and falls. As per the patients daughter, the pt has had increasing episodes of confusion during the night for the past week, She states the pt often wakes up from sleep screaming and is disoriented. She also states the pt has been having 3 episodes of watery, foul smelling diarrhea/day for the last five days. The pt was taking an antibiotic for a UTI and finished a month ago. As per patient's son he has not been eating well for the last week. He has had swelling in his lower extremities which is improving as per his son. Patient is awake and alert in the ED. He denies chest pain, chills, fever, headache, shortness of breath, changes in vision, dysuria, hematuria. Patient was recently admitted at [facility] for a syncopal hospital. At the time of discharge from [facility] his Potassium was within normal levels. In the ED patient was found to be hypokalemic, admitted to hospitalist team. Still hypokalemic despite initial repletion. Patient is getting more potassium for repletion. REVIEW OF SYSTEMS: As per HPI PHYSICAL EXAMINATION Vital Signs - 24 hr 03/14/19 03/14/19 03/14/19 13:36 14:00 14:15 Temperature 98.2 F 98.3 F Pulse Rate 70 Pulse Rate [ 69 Right Brachial] Pulse Rate [ Right Radial] Respiratory 16 17 Rate Blood Pressure 79/49 L Blood Pressure 106/54 L [Right Arm] O2 Sat by Pulse 97 97 95 Oximetry (%) 03/14/19 03/14/19 03/15/19 19:30 23:05 01:20 Temperature Pulse Rate Pulse Rate [ 87 72 68 Right Brachial] Pulse Rate [ Right Radial] Respiratory 20 20 17 Rate Blood Pressure Blood Pressure 116/50 L 97/47 L 122/68 [Right Arm] O2 Sat by Pulse 95 95 95 Oximetry (%) 03/15/19 03/15/19 03/15/19 04:28 07:18 07:25 Temperature 97.6 F 98.4 F 98.5 F Pulse Rate Pulse Rate [ 77 72 Right Brachial] Pulse Rate [ 75 Right Radial] Respiratory 20 20 15 Rate Blood Pressure Blood Pressure 121/57 L 123/71 130/66 [Right Arm] O2 Sat by Pulse 97 95 94 L Oximetry (%) 03/15/19 07:35 Temperature Pulse Rate Pulse Rate [ Right Brachial] Pulse Rate [ 90 Right Radial] Respiratory 20 Rate Blood Pressure Blood Pressure 130/71 [Right Arm] O2 Sat by Pulse 99 Oximetry (%) GENERAL: Awake, alert, and fully oriented, in no acute distress. HEAD: Normal with no signs of trauma. EYES: PERRL, EOMI, no scleral icterus EARS, NOSE, THROAT: dry mucous membrane NECK: supple, trachea midline LUNGS: Breath sounds equal, clear to auscultation bilaterally. No wheezes, and no crackles. No accessory muscle use. HEART: RRR, murmur noted ABDOMEN: Soft, nontender, not distended, normoactive bowel sounds, no guarding, no rebound, no masses. MUSCULOSKELETAL: No bony deformities or tenderness EXTREMITIES: 2+ pulses, warm, well-perfused. No calf tenderness. +edema bilateral legs NEUROLOGICAL: Cranial nerves II-XII intact. Normal speech. AAOx3 PSYCHIATRIC: good eye contact SKIN: Warm, dry Laboratory Results - last 24 hr 03/14/19 03/14/19 03/14/19 14:01 15:00 15:00 WBC RBC Hgb Hct MCV MCH MCHC RDW Plt Count MPV Absolute Neuts (auto) Neutrophils % Lymphocytes % Monocytes % Eosinophils % Basophils % Nucleated RBC % PT with INR 14.00 H INR 1.18 H PTT (Actin FS) 25.4 Sodium Potassium Chloride Carbon Dioxide Anion Gap BUN Creatinine Est GFR (CKD-EPI)AfAm Est GFR (CKD-EPI)NonAf POC Glucometer 72 Random Glucose Calcium Phosphorus Magnesium 1.8 Total Bilirubin AST ALT Alkaline Phosphatase Creatine Kinase Creatine Kinase Index CK-MB (CK-2) Troponin I B-Natriuretic Peptide Total Protein Albumin TSH Free T4 1.51 H Urine Color Urine Appearance Urine pH Ur Specific [place] Urine Protein Urine Glucose (UA) Urine Ketones Urine Blood Urine Nitrite Urine Bilirubin Urine Urobilinogen Ur Leukocyte Esterase 03/14/19 03/14/19 03/14/19 15:00 15:00 15:00 WBC 10.0 RBC 4.04 Hgb 11.9 Hct 35.0 L MCV 86.6 MCH 29.5 MCHC 34.0 RDW 15.4 Plt Count 315 MPV 7.6 Absolute Neuts (auto) 8.6 H Neutrophils % 86.0 H Lymphocytes % 6.1 L Monocytes % 7.1 Eosinophils % 0.4 Basophils % 0.4 Nucleated RBC % 0 PT with INR INR PTT (Actin FS) Sodium 139 Potassium 2.8 L* Chloride 100 Carbon Dioxide 32 Anion Gap 7 L BUN 17.6 Creatinine 2.2 H Est GFR (CKD-EPI)AfAm 32.06 Est GFR (CKD-EPI)NonAf 27.67 POC Glucometer Random Glucose 76 Calcium 8.0 L Phosphorus Magnesium Total Bilirubin 0.7 AST 48 H ALT 12 L Alkaline Phosphatase 98 Creatine Kinase 476 H Creatine Kinase Index 0.7 CK-MB (CK-2) 3.5 Troponin I 0.02 B-Natriuretic Peptide 4381.6 H Total Protein 6.3 L Albumin 2.8 L TSH Free T4 Urine Color Urine Appearance Urine pH Ur Specific [place] Urine Protein Urine Glucose (UA) Urine Ketones Urine Blood Urine Nitrite Urine Bilirubin Urine Urobilinogen Ur Leukocyte Esterase 03/14/19 03/15/19 03/15/19 15:00 05:30 05:30 WBC 8.0 RBC 3.55 L Hgb 10.6 L Hct 30.5 L MCV 85.9 MCH 29.8 MCHC 34.7 RDW 15.3 Plt Count 270 MPV 7.1 L Absolute Neuts (auto) 5.2 Neutrophils % 64.7 D Lymphocytes % 23.4 D Monocytes % 7.7 Eosinophils % 3.3 D Basophils % 0.9 Nucleated RBC % 0 PT with INR INR PTT (Actin FS) Sodium 142 Potassium 2.2 L* Chloride 104 Carbon Dioxide 30 Anion Gap 8 BUN 16.8 Creatinine 2.6 H Est GFR (CKD-EPI)AfAm 26.20 Est GFR (CKD-EPI)NonAf 22.61 POC Glucometer Random Glucose 64 L Calcium 7.2 L Phosphorus 2.0 L 1.4 L Magnesium 2.0 Total Bilirubin 0.4 AST 40 H ALT 7 L Alkaline Phosphatase 86 Creatine Kinase Creatine Kinase Index CK-MB (CK-2) Troponin I B-Natriuretic Peptide Total Protein 5.2 L Albumin 2.2 L TSH 0.29 L Free T4 Urine Color Urine Appearance Urine pH Ur Specific [place] Urine Protein Urine Glucose (UA) Urine Ketones Urine Blood Urine Nitrite Urine Bilirubin Urine Urobilinogen Ur Leukocyte Esterase 03/15/19 03/15/19 05:30 11:10 WBC RBC Hgb Hct MCV MCH MCHC RDW Plt Count MPV Absolute Neuts (auto) Neutrophils % Lymphocytes % Monocytes % Eosinophils % Basophils % Nucleated RBC % PT with INR INR PTT (Actin FS) Sodium Potassium Chloride Carbon Dioxide Anion Gap BUN Creatinine Est GFR (CKD-EPI)AfAm Est GFR (CKD-EPI)NonAf POC Glucometer Random Glucose Calcium Phosphorus Magnesium Total Bilirubin AST ALT Alkaline Phosphatase Creatine Kinase 402 H Creatine Kinase Index 0.7 CK-MB (CK-2) 3.1 Troponin I 0.03 B-Natriuretic Peptide Total Protein Albumin TSH Free T4 Urine Color Yellow Urine Appearance Clear Urine pH 6.0 Ur Specific [place] 1.007 L Urine Protein 2+ H Urine Glucose (UA) Negative Urine Ketones Negative Urine Blood 2+ H Urine Nitrite Positive H Urine Bilirubin Negative Urine Urobilinogen 0.2 Ur Leukocyte Esterase 3+ H Active Medications Generic Name Dose Route Start Last Admin Trade Name Dionicio PRN Reason Stop Dose Admin Amlodipine Besylate 5 mg 03/15/19 10:00 03/15/19 10:22 Norvasc - PO 5 mg DAILY OSWALDO Administration Aspirin 81 mg 03/15/19 10:00 03/15/19 10:20 Asa - PO 81 mg DAILY [facility] Administration Carbidopa/Levodopa 1 combo 03/15/19 14:00 Sinemet *Cr* 50/200 - PO TID [facility] Chlorhexidine Gluconate 1 applic 03/15/19 22:00 Hibiclens For Decolonization - TP HS [facility] Cholecalciferol 1,000 unit 03/15/19 10:00 Vitamin D3 - PO DAILY [facility] Finasteride 5 mg 03/15/19 10:00 Proscar - PO DAILY [facility] Fludrocortisone Acetate 0.1 mg 03/15/19 10:00 Florinef - PO DAILY [facility] Heparin Sodium (Porcine) 5,000 unit 03/14/19 19:30 03/15/19 06:29 Heparin - SQ 5,000 unit TID [facility] Administration Sodium Chloride 1,000 mls @ 42 mls/hr 03/14/19 21:15 03/15/19 00:00 Normal Saline - IV 42 mls/hr ASDIR OSWALDO Administration Sodium Phosphate 30 mm/ 260 mls @ 62.5 mls/hr 03/15/19 09:51 Dextrose IVPB 03/15/19 14:00 ONCE ONE Levothyroxine Sodium 50 mcg 03/16/19 07:00 Synthroid - PO DAILY@0700 [facility] Mupirocin 1 applic 03/15/19 10:00 Bactroban Ointment (For Decolonization) - NS 03/20/19 09:59 BID [facility] Potassium Chloride 20 meq 03/15/19 14:00 K-Dur - PO 03/15/19 14:01 ONCE ONE Rosuvastatin Calcium 10 mg 03/15/19 22:00 Crestor - PO [facility] ASSESSMENT/PLAN: 79 y/o/m with PMHx of Virginie Figueroa parkinson's disease, CAD (s/p quadruple bypass ), pituitary tumor (s/p resection 1997), hypothyroidism (on synthroid 75mcg) who presented to ED with 1 week of AMS, diarrhea and falls. Patient found to have hypokalemia in ED, continued hypokalemia despite initial attempt at repletion. Will continue to receive Potassium for repletion. #Neuro - AAOx3 - Hx of Virginie Figueroa Parkinson's Disease - head CT - no acute pathology noted - cervical CT - no fracture seen - Continue home Sinemet #Cardio - Hx of CAD (s/p quadruple bypass) - Continue home HTN meds as per primary team - BP stable, within normal limits. No hypotension noted - EKG without sinus rhythm with premature supraventricular complexes. Vent Rate 71bpm, QT/QTc 466/506 - QTc prolonged, avoid QTc prolonging drugs #Pulm - No acute process seen on CXR - maintain SpO2 >90% - Endo consulted #GI - patient presenting with diarrhea for the last week, likely contributing to hypokalemia - likely colitis, r/o c diff - CT Abd pelvis without contrast- no signs of colitis, diverticulitis, just diverticulosis #Renal - PO - Hypokalemia at 2.8 on admission, down to 2.2, now at 2.5 - Continue to replete Potassium and monitor with serial BMPs - BUN/Cr at 16.1/2.7 most recently, monitor - Obtain urine electrolytes - Obtain renal U/S #Endo - hx of hypothyroidism - Continue home synthroid #Prophylaxis - Heparin #FEN - NS @42mls/hr - Sodium controlled diet #Disposition - Patient does not need ICU admission at this time. Continue to monitor on tele. - If patient develops EKG changes or arrhythmia, can reconsider ICU admission at that time. <Sharan Frankel - Last Filed: 03/15/19 15:28> Visit type - Emergency Visit Emergency Visit: Yes ED Registration Date: 03/14/19 Care time: The patient presented to the Emergency Department on the above date and was hospitalized for further evaluation of their emergent condition. - New Patient This patient is new to me today: Yes Date on this admission: 03/15/19 - Critical Care Critical Care patient: No <Sharan Frankel - Last Filed: 03/15/19 15:28> ATTENDING PHYSICIAN STATEMENT I saw and evaluated the patient. I reviewed the resident's note and discussed the case with the resident. I agree with the resident's findings and plan as documented. SUBJECTIVE: OBJECTIVE: ASSESSMENT AND PLAN: <Deuce Hernandez - Last Filed: 03/15/19 13:28> ATTENDING PHYSICIAN STATEMENT I saw and evaluated the patient. I reviewed the resident's note and discussed the case with the resident. I agree with the resident's findings and plan as documented. SUBJECTIVE: OBJECTIVE: ASSESSMENT AND PLAN: <Sharan Frankel - Last Filed: 03/15/19 15:28>
[2019-03-15 11:51] LABS: COCAINE, UR NEGATIVE ng/ml (CUTOFF=300); METHADONE, UR NEGATIVE ng/ml (CUTOFF=300); OPIATES, URI NEGATIVE ng/ml (CUTOFF=300); PHENCYCLIDINE,URINE NEGATIVE ng/ml (CUTOFF=25); URINE AMPHETAMINES NEGATIVE ng/ml (CUTOFF=500); URINE BARBITURATES NEGATIVE ng/ml (CUTOFF=200); URINE BENZODIAZEPINES NEGATIVE ng/ml (CUTOFF=200)
[2019-03-15 12:11] LABS: EPI CELLS 0-5 /HPF (0-5/HPF); URINE RBC 0-4 /hpf (0-4)
[2019-03-15 12:12] LABS: HYALINE CASTS 0-8 /lpf (0-8); URINE BACTERIA POSITIVE /hpf (NEGATIVE)
[2019-03-15 13:15] LABS: BLOOD UREA NITROGEN 16.1 mg/dL (7-18); CALCIUM 7.5 mg/dL (8.5-10.1); CREATININE 2.7 mg/dL (0.55-1.3); MAGNESIUM 1.8 mg/dL (1.8-2.4)
[2019-03-15 13:16] LABS: POTASSIUM 2.5 mmol/L (3.5-5.1)
--- NOTE | 2019-03-15 13:54 | CONSULT ---
Consultation: REQUESTING PROVIDER: Dr. Mccormick CONSULT SERVICE: Nephrology HISTORY OF PRESENT ILLNESS: Patient is a 79 year old male with history of Parkinson Disease, pituitary tumor (s/p resection), coronary artery disease (s/p CABG x4 vessels), hypothyroidism, presented with complaint of altered mental status with associated falls. Reported to have diminihsed oral intake, numerous episodes loose stools, and recent antibiotic course for UTI completed one month ago. In the ED patient was found to be hypokalemic to 2.8, received oral and intravenous potassium repletion. EKG revealed sinus rhythm at 71BPM without ischemic changes. CPK noted to be 476. BUN 17.6 / Cr 2.2 (baseline 0.9 as of February 2019). Patient's son endorses that he was on potassium supplements that were discontinued in February. Further, the Fludrocortisone appears to be a new medication, although he is unsure of the exact initiation date. Past medical history: Parkinson disease, pituitary tumor, coronary artery disease, hypothyroidism, Past surgical history: CABG x4 vessels, pituitary tumor resection Family history Mother: ?brain tumor Father: Unknown Social history: Denies alcohol consumption. Former 5 pack year smoking history, quit 1966. Admits former cocaine use 60 yrs ago. REVIEW OF SYSTEMS: As per HPI PHYSICAL EXAMINATION Vital Signs - 24 hr 03/14/19 03/14/19 03/14/19 13:36 14:00 14:15 Temperature 98.2 F 98.3 F Pulse Rate 70 Pulse Rate [ 69 Right Brachial] Pulse Rate [ Right Radial] Respiratory 16 17 Rate Blood Pressure 79/49 L Blood Pressure 106/54 L [Right Arm] O2 Sat by Pulse 97 97 95 Oximetry (%) 03/14/19 03/14/19 03/15/19 19:30 23:05 01:20 Temperature Pulse Rate Pulse Rate [ 87 72 68 Right Brachial] Pulse Rate [ Right Radial] Respiratory 20 20 17 Rate Blood Pressure Blood Pressure 116/50 L 97/47 L 122/68 [Right Arm] O2 Sat by Pulse 95 95 95 Oximetry (%) 03/15/19 03/15/19 03/15/19 04:28 07:18 07:25 Temperature 97.6 F 98.4 F 98.5 F Pulse Rate Pulse Rate [ 77 72 Right Brachial] Pulse Rate [ 75 Right Radial] Respiratory 20 20 15 Rate Blood Pressure Blood Pressure 121/57 L 123/71 130/66 [Right Arm] O2 Sat by Pulse 97 95 94 L Oximetry (%) 03/15/19 03/15/19 07:35 12:26 Temperature Pulse Rate Pulse Rate [ 78 Right Brachial] Pulse Rate [ 90 78 Right Radial] Respiratory 20 20 Rate Blood Pressure Blood Pressure 130/71 131/66 [Right Arm] O2 Sat by Pulse 99 100 Oximetry (%) GENERAL: Awake, minimally communicative. In no acute distress. HEENT: NC/AT. PERRL, EOMI. Dry mucous membranes. LUNGS: Breath sounds equal, clear to auscultation bilaterally. No wheezes, and no crackles. No accessory muscle use. HEART: Regular rate and rhythm, normal S1 and S2 without murmur, rub or gallop. ABDOMEN: Soft, nontender, not distended. No guarding, no rebound tenderness. EXTREMITIES: 2+ pulses, warm, well-perfused. 2+ peripheral edema bilateral lower extremities. NEUROLOGICAL: Cranial nerves II-XII grossly intact. SKIN: Warm, dry. Numerous lesions, and bruising bilaterally. Laboratory Results - last 24 hr 03/14/19 03/14/19 03/14/19 14:01 15:00 15:00 WBC RBC Hgb Hct MCV MCH MCHC RDW Plt Count MPV Absolute Neuts (auto) Neutrophils % Lymphocytes % Monocytes % Eosinophils % Basophils % Nucleated RBC % PT with INR 14.00 H INR 1.18 H PTT (Actin FS) 25.4 Sodium Potassium Chloride Carbon Dioxide Anion Gap BUN Creatinine Est GFR (CKD-EPI)AfAm Est GFR (CKD-EPI)NonAf POC Glucometer 72 Random Glucose Calcium Phosphorus Magnesium 1.8 Total Bilirubin AST ALT Alkaline Phosphatase Creatine Kinase Creatine Kinase Index CK-MB (CK-2) Troponin I B-Natriuretic Peptide Total Protein Albumin TSH Free T4 1.51 H Urine Color Urine Appearance Urine pH Ur Specific [place] Urine Protein Urine Glucose (UA) Urine Ketones Urine Blood Urine Nitrite Urine Bilirubin Urine Urobilinogen Ur Leukocyte Esterase Urine WBC (Auto) Urine RBC (Auto) Urine Casts (Auto) U Epithel Cells (Auto) Urine Bacteria (Auto) Urine Yeast (Auto) Opiates Screen Methadone Screen Barbiturate Screen Phencyclidine Screen Ur Amphetamines Screen MDMA (Ecstasy) Screen Benzodiazepines Screen Cocaine Screen U Marijuana (THC) Screen 03/14/19 03/14/19 03/14/19 15:00 15:00 15:00 WBC 10.0 RBC 4.04 Hgb 11.9 Hct 35.0 L MCV 86.6 MCH 29.5 MCHC 34.0 RDW 15.4 Plt Count 315 MPV 7.6 Absolute Neuts (auto) 8.6 H Neutrophils % 86.0 H Lymphocytes % 6.1 L Monocytes % 7.1 Eosinophils % 0.4 Basophils % 0.4 Nucleated RBC % 0 PT with INR INR PTT (Actin FS) Sodium 139 Potassium 2.8 L* Chloride 100 Carbon Dioxide 32 Anion Gap 7 L BUN 17.6 Creatinine 2.2 H Est GFR (CKD-EPI)AfAm 32.06 Est GFR (CKD-EPI)NonAf 27.67 POC Glucometer Random Glucose 76 Calcium 8.0 L Phosphorus Magnesium Total Bilirubin 0.7 AST 48 H ALT 12 L Alkaline Phosphatase 98 Creatine Kinase 476 H Creatine Kinase Index 0.7 CK-MB (CK-2) 3.5 Troponin I 0.02 B-Natriuretic Peptide 4381.6 H Total Protein 6.3 L Albumin 2.8 L TSH Free T4 Urine Color Urine Appearance Urine pH Ur Specific [place] Urine Protein Urine Glucose (UA) Urine Ketones Urine Blood Urine Nitrite Urine Bilirubin Urine Urobilinogen Ur Leukocyte Esterase Urine WBC (Auto) Urine RBC (Auto) Urine Casts (Auto) U Epithel Cells (Auto) Urine Bacteria (Auto) Urine Yeast (Auto) Opiates Screen Methadone Screen Barbiturate Screen Phencyclidine Screen Ur Amphetamines Screen MDMA (Ecstasy) Screen Benzodiazepines Screen Cocaine Screen U Marijuana (THC) Screen 03/14/19 03/15/19 03/15/19 15:00 05:30 05:30 WBC 8.0 RBC 3.55 L Hgb 10.6 L Hct 30.5 L MCV 85.9 MCH 29.8 MCHC 34.7 RDW 15.3 Plt Count 270 MPV 7.1 L Absolute Neuts (auto) 5.2 Neutrophils % 64.7 D Lymphocytes % 23.4 D Monocytes % 7.7 Eosinophils % 3.3 D Basophils % 0.9 Nucleated RBC % 0 PT with INR INR PTT (Actin FS) Sodium 142 Potassium 2.2 L* Chloride 104 Carbon Dioxide 30 Anion Gap 8 BUN 16.8 Creatinine 2.6 H Est GFR (CKD-EPI)AfAm 26.20 Est GFR (CKD-EPI)NonAf 22.61 POC Glucometer Random Glucose 64 L Calcium 7.2 L Phosphorus 2.0 L 1.4 L Magnesium 2.0 Total Bilirubin 0.4 AST 40 H ALT 7 L Alkaline Phosphatase 86 Creatine Kinase Creatine Kinase Index CK-MB (CK-2) Troponin I B-Natriuretic Peptide Total Protein 5.2 L Albumin 2.2 L TSH 0.29 L Free T4 Urine Color Urine Appearance Urine pH Ur Specific [place] Urine Protein Urine Glucose (UA) Urine Ketones Urine Blood Urine Nitrite Urine Bilirubin Urine Urobilinogen Ur Leukocyte Esterase Urine WBC (Auto) Urine RBC (Auto) Urine Casts (Auto) U Epithel Cells (Auto) Urine Bacteria (Auto) Urine Yeast (Auto) Opiates Screen Methadone Screen Barbiturate Screen Phencyclidine Screen Ur Amphetamines Screen MDMA (Ecstasy) Screen Benzodiazepines Screen Cocaine Screen U Marijuana (THC) Screen 03/15/19 03/15/19 03/15/19 05:30 11:10 11:10 WBC RBC Hgb Hct MCV MCH MCHC RDW Plt Count MPV Absolute Neuts (auto) Neutrophils % Lymphocytes % Monocytes % Eosinophils % Basophils % Nucleated RBC % PT with INR INR PTT (Actin FS) Sodium Potassium Chloride Carbon Dioxide Anion Gap BUN Creatinine Est GFR (CKD-EPI)AfAm Est GFR (CKD-EPI)NonAf POC Glucometer Random Glucose Calcium Phosphorus Magnesium Total Bilirubin AST ALT Alkaline Phosphatase Creatine Kinase 402 H Creatine Kinase Index 0.7 CK-MB (CK-2) 3.1 Troponin I 0.03 B-Natriuretic Peptide Total Protein Albumin TSH Free T4 Urine Color Yellow Urine Appearance Clear Urine pH 6.0 Ur Specific [place] 1.007 L Urine Protein 2+ H Urine Glucose (UA) Negative Urine Ketones Negative Urine Blood 2+ H Urine Nitrite Positive H Urine Bilirubin Negative Urine Urobilinogen 0.2 Ur Leukocyte Esterase 3+ H Urine WBC (Auto) 10-15 Urine RBC (Auto) 0-4 Urine Casts (Auto) 0-8 U Epithel Cells (Auto) 0-5 Urine Bacteria (Auto) Positive Urine Yeast (Auto) Review A* Opiates Screen Negative Methadone Screen Negative Barbiturate Screen Negative Phencyclidine Screen Negative Ur Amphetamines Screen Negative MDMA (Ecstasy) Screen Negative Benzodiazepines Screen Negative Cocaine Screen Negative U Marijuana (THC) Screen Negative 03/15/19 11:24 WBC RBC Hgb Hct MCV MCH MCHC RDW Plt Count MPV Absolute Neuts (auto) Neutrophils % Lymphocytes % Monocytes % Eosinophils % Basophils % Nucleated RBC % PT with INR INR PTT (Actin FS) Sodium 143 Potassium 2.5 L* Chloride 105 Carbon Dioxide 30 Anion Gap 7 L BUN 16.1 Creatinine 2.7 H Est GFR (CKD-EPI)AfAm 25.03 Est GFR (CKD-EPI)NonAf 21.60 POC Glucometer Random Glucose 77 Calcium 7.5 L Phosphorus Magnesium 1.8 Total Bilirubin AST ALT Alkaline Phosphatase Creatine Kinase Creatine Kinase Index CK-MB (CK-2) Troponin I B-Natriuretic Peptide Total Protein Albumin TSH Free T4 Urine Color Urine Appearance Urine pH Ur Specific [place] Urine Protein Urine Glucose (UA) Urine Ketones Urine Blood Urine Nitrite Urine Bilirubin Urine Urobilinogen Ur Leukocyte Esterase Urine WBC (Auto) Urine RBC (Auto) Urine Casts (Auto) U Epithel Cells (Auto) Urine Bacteria (Auto) Urine Yeast (Auto) Opiates Screen Methadone Screen Barbiturate Screen Phencyclidine Screen Ur Amphetamines Screen MDMA (Ecstasy) Screen Benzodiazepines Screen Cocaine Screen U Marijuana (THC) Screen Active Medications Generic Name Dose Route Start Last Admin Trade Name Freq PRN Reason Stop Dose Admin Amlodipine Besylate 5 mg 03/15/19 10:00 03/15/19 10:22 Norvasc - PO 5 mg DAILY [facility] Administration Aspirin 81 mg 03/15/19 10:00 03/15/19 10:20 Asa - PO 81 mg DAILY [facility] Administration Carbidopa/Levodopa 1 combo 03/15/19 14:00 Sinemet *Cr* 50/200 - PO TID [facility] Chlorhexidine Gluconate 1 applic 03/15/19 22:00 Hibiclens For Decolonization - TP HS [facility] Cholecalciferol 1,000 unit 03/15/19 10:00 Vitamin D3 - PO DAILY [facility] Finasteride 5 mg 03/15/19 10:00 Proscar - PO DAILY [facility] Fludrocortisone Acetate 0.1 mg 03/15/19 10:00 Florinef - PO DAILY [facility] Heparin Sodium (Porcine) 5,000 unit 03/14/19 19:30 03/15/19 06:29 Heparin - SQ 5,000 unit TID [facility] Administration Sodium Chloride 1,000 mls @ 42 mls/hr 03/14/19 21:15 03/15/19 00:00 Normal Saline - IV 42 mls/hr ASDIR [facility] Administration Sodium Phosphate 30 mm/ 260 mls @ 62.5 mls/hr 03/15/19 09:51 03/15/19 12:15 Dextrose IVPB 03/15/19 14:00 62.5 mls/hr ONCE ONE Administration Levothyroxine Sodium 50 mcg 03/16/19 07:00 Synthroid - PO DAILY@0700 [facility] Mupirocin 1 applic 03/15/19 10:00 Bactroban Ointment (For Decolonization) - NS 03/20/19 09:59 BID [facility] Potassium Chloride 20 meq 03/15/19 14:00 K-Dur - PO 03/15/19 14:01 ONCE ONE Rosuvastatin Calcium 10 mg 03/15/19 22:00 Crestor - PO [facility] ASSESSMENT/PLAN: Patient is a 79 year old male with history of Parkinson Disease, pituitary tumor (s/p resection), coronary artery disease (s/p CABG x4 vessels), hypothyroidism, presented with complaint of altered mental status with associated falls Hypokalemia - Noted minimal oral intake, and recent history of diarrhea. However given extent of hypokaemia, will need to evaluate for mineralocorticoid induced etiology. Patient has been on Fludrocortisone ?new medication. -Repeat potassium is 2.5. Continue potassium repletion with oral and IV potassium. Follow BMP. Current EKGs without ischemic changes. -Calculate trans-tubular potassium gradient. Urine potassium, urine osmolality , serum osmolality ordered. Acute kidney injury -Noted elevated CPK; downtrending. -Obtain renal ultrasound -Obtain urine electrolytes -Follow BMP Disposition: We will continue to follow the patient. Thank you for this consultative opportunity. Visit type - Emergency Visit Emergency Visit: Yes ED Registration Date: 03/14/19 Care time: The patient presented to the Emergency Department on the above date and was hospitalized for further evaluation of their emergent condition. - New Patient This patient is new to me today: Yes Date on this admission: 03/15/19 - Critical Care Critical Care patient: No ATTENDING PHYSICIAN STATEMENT I saw and evaluated the patient. I reviewed the resident's note and discussed the case with the resident. I agree with the resident's findings and plan as documented. SUBJECTIVE: OBJECTIVE: ASSESSMENT AND PLAN:
[2019-03-15] MEDS ORDERED: CARBIDOPA/LEVODOPA 25/100 TABLET (FP) ONE (14:17)
[2019-03-15] MEDS ORDERED: MAGNESIUM SULF 50% (8.12 MEQ/2 ML-1 GM VIAL) IVPB ONE ×2 (14:24→18:45)
--- NOTE | 2019-03-15 16:13 | PN ---
Teaching Attending Note Name of Resident: Silas Mensah (Nephrology) ATTENDING PHYSICIAN STATEMENT I saw and evaluated the patient. I reviewed the resident's note and discussed the case with the resident. I agree with the resident's findings and plan as documented. Renal Pt is a 79 year old male with pmhx of parkinsons, pituitary tumor resection, cad, hypothyroid who presents to the ER with altered mental status. He was found to be in renal failure and hypokalemic. He was on potassium supplements in the past and it is not clear why they were stopped. He denies chest pain or palpitations. pmhx parkinsons, hypotension cad pshx pituitary tumor resection nkda social hx denies family hx denies Current Medications Generic Name Dose Route Start Last Admin Trade Name Freq PRN Reason Stop Dose Admin Amlodipine Besylate 5 mg 03/15/19 10:00 03/15/19 10:22 Norvasc - PO 5 mg DAILY [facility] Administration Aspirin 81 mg 03/15/19 10:00 03/15/19 10:20 Asa - PO 81 mg DAILY [facility] Administration Carbidopa/Levodopa 1 combo 03/15/19 14:00 03/15/19 14:28 Sinemet *Cr* 50/200 - PO 1 combo TID OS[facility] Administration Chlorhexidine Gluconate 1 applic 03/15/19 22:00 Hibiclens For Decolonization - TP HS [facility] Cholecalciferol 1,000 unit 03/15/19 10:00 03/15/19 15:57 Vitamin D3 - PO 1,000 unit DAILY [facility] Administration Finasteride 5 mg 03/15/19 10:00 Proscar - PO DAILY [facility] Fludrocortisone Acetate 0.1 mg 03/15/19 10:00 Florinef - PO DAILY [facility] Heparin Sodium (Porcine) 5,000 unit 03/14/19 19:30 03/15/19 06:29 Heparin - SQ 5,000 unit TID [facility] Administration Ceftriaxone Sodium 1 gm/ 50 mls @ 200 mls/hr 03/15/19 14:30 Dextrose IVPB DAILY [facility] Protocol Potassium Chloride 10 meq in 100 mls @ 100 mls/hr 03/15/19 14:30 03/15/19 14: 41 Potassium Chloride 10 Meq Premix Ivpb - IVPB 03/15/19 17:29 100 mls/hr Q60M [facility] Administration Potassium Chloride/Sodium Chloride 20 meq in 1,000 mls @ 42 mls/hr 03/15/19 17 :30 Ns+20 Meq Kcl - IV [facility] Levothyroxine Sodium 50 mcg 03/16/19 07:00 Synthroid - PO DAILY@0700 [facility] Mupirocin 1 applic 03/15/19 10:00 Bactroban Ointment (For Decolonization) - NS 03/20/19 09:59 BID [facility] Rosuvastatin Calcium 10 mg 03/15/19 22:00 Crestor - PO HS [facility] Laboratory Tests 03/14/19 03/14/19 03/15/19 15:00 15:00 05:30 Potassium 2.8 L* 2.2 L* Creatinine 2.2 H 2.6 H Calcium 7.2 L Phosphorus 2.0 L 1.4 L Ur Specific [place] Urine Protein Urine Nitrite 03/15/19 03/15/19 11:10 11:24 Potassium 2.5 L* Creatinine 2.7 H Calcium 7.5 L Phosphorus Ur Specific [place] 1.007 L Urine Protein 2+ H Urine Nitrite Positive H Last Vital Signs Temp Pulse Resp BP Pulse Ox 98.5 F 70 20 98/55 L 98 03/15/19 07:25 03/15/19 15:58 03/15/19 15:58 03/15/19 15:58 03/15/19 15:58 cardio s1s2 pulm clear GI soft ext edema neuro awake skin neg rash Impression 1. PO 2. hypokalemia 3. s/p pituitary tumor resection 4. 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
--- NOTE | 2019-03-15 16:51 | PN ---
Physical Exam: SUBJECTIVE: Patient seen and examined at the bedside. Patient states that he feels better but weak. Endorses decreased appetite. Denies cp, sob, abd pain, n/ v/c/d, fever, chills, numbness, tingling. OBJECTIVE: Vital Signs Period Temp Pulse Resp BP Sys/Miguel Pulse Ox Last 24 Hr 97.6 F-98.5 F 68-90 15-20 97-131/47-71 94-100 GENERAL: Awake, alert, and fully oriented, in no acute distress. HEAD: Normal with no signs of trauma. ENT: Dry mucous membranes, significant amount of dried blood around and in oral cavity. Old dried blood on R lower lip. LUNGS: Breath sounds equal, clear to auscultation bilaterally. No wheezes, and no crackles. No accessory muscle use. HEART: Regular rate and rhythm, normal S1 and S2 without murmur, rub. ABDOMEN: Soft, nontender, not distended, normoactive bowel sounds, no guarding, no rebound, no masses. UPPER EXTREMITIES: 2+ pulses, warm, well-perfused. No cyanosis. No clubbing. No peripheral edema. LOWER EXTREMITIES: 2+ pulses, warm, well-perfused. No calf tenderness. 2+ peripheral edema. NEUROLOGICAL: Cranial nerves II-XII intact. 2/5 LE against resistance, able to lift legs on passive ROM (3/5), normal sensation. PSYCHIATRIC: Cooperative. Good eye contact. Appropriate mood and affect. SKIN: Warm, dry, ecchymosis on bilateral arms. Laboratory Results - last 24 hr 03/15/19 03/15/19 03/15/19 05:30 05:30 05:30 WBC 8.0 RBC 3.55 L Hgb 10.6 L Hct 30.5 L MCV 85.9 MCH 29.8 MCHC 34.7 RDW 15.3 Plt Count 270 MPV 7.1 L Absolute Neuts (auto) 5.2 Neutrophils % 64.7 D Lymphocytes % 23.4 D Monocytes % 7.7 Eosinophils % 3.3 D Basophils % 0.9 Nucleated RBC % 0 Sodium 142 Potassium 2.2 L* Chloride 104 Carbon Dioxide 30 Anion Gap 8 BUN 16.8 Creatinine 2.6 H Est GFR (CKD-EPI)AfAm 26.20 Est GFR (CKD-EPI)NonAf 22.61 Random Glucose 64 L Calcium 7.2 L Phosphorus 1.4 L Magnesium 2.0 Total Bilirubin 0.4 AST 40 H ALT 7 L Alkaline Phosphatase 86 Creatine Kinase 402 H Creatine Kinase Index 0.7 CK-MB (CK-2) 3.1 Troponin I 0.03 Total Protein 5.2 L Albumin 2.2 L Urine Color Urine Appearance Urine pH Ur Specific [place] Urine Protein Urine Glucose (UA) Urine Ketones Urine Blood Urine Nitrite Urine Bilirubin Urine Urobilinogen Ur Leukocyte Esterase Urine WBC (Auto) Urine RBC (Auto) Urine Casts (Auto) U Epithel Cells (Auto) Urine Bacteria (Auto) Urine Yeast (Auto) Opiates Screen Methadone Screen Barbiturate Screen Phencyclidine Screen Ur Amphetamines Screen MDMA (Ecstasy) Screen Benzodiazepines Screen Cocaine Screen U Marijuana (THC) Screen 03/15/19 03/15/19 03/15/19 11:10 11:10 11:24 WBC RBC Hgb Hct MCV MCH MCHC RDW Plt Count MPV Absolute Neuts (auto) Neutrophils % Lymphocytes % Monocytes % Eosinophils % Basophils % Nucleated RBC % Sodium 143 Potassium 2.5 L* Chloride 105 Carbon Dioxide 30 Anion Gap 7 L BUN 16.1 Creatinine 2.7 H Est GFR (CKD-EPI)AfAm 25.03 Est GFR (CKD-EPI)NonAf 21.60 Random Glucose 77 Calcium 7.5 L Phosphorus Magnesium 1.8 Total Bilirubin AST ALT Alkaline Phosphatase Creatine Kinase Creatine Kinase Index CK-MB (CK-2) Troponin I Total Protein Albumin Urine Color Yellow Urine Appearance Clear Urine pH 6.0 Ur Specific [place] 1.007 L Urine Protein 2+ H Urine Glucose (UA) Negative Urine Ketones Negative Urine Blood 2+ H Urine Nitrite Positive H Urine Bilirubin Negative Urine Urobilinogen 0.2 Ur Leukocyte Esterase 3+ H Urine WBC (Auto) 10-15 Urine RBC (Auto) 0-4 Urine Casts (Auto) 0-8 U Epithel Cells (Auto) 0-5 Urine Bacteria (Auto) Positive Urine Yeast (Auto) Review A* Opiates Screen Negative Methadone Screen Negative Barbiturate Screen Negative Phencyclidine Screen Negative Ur Amphetamines Screen Negative MDMA (Ecstasy) Screen Negative Benzodiazepines Screen Negative Cocaine Screen Negative U Marijuana (THC) Screen Negative Active Medications Generic Name Dose Route Start Last Admin Trade Name Freq PRN Reason Stop Dose Admin Amlodipine Besylate 5 mg 03/15/19 10:00 03/15/19 10:22 Norvasc - PO 5 mg DAILY [facility] Administration Aspirin 81 mg 03/15/19 10:00 03/15/19 10:20 Asa - PO 81 mg DAILY [facility] Administration Carbidopa/Levodopa 1 combo 03/15/19 14:00 03/15/19 14:28 Sinemet *Cr* 50/200 - PO 1 combo TID [facility] Administration Chlorhexidine Gluconate 1 applic 03/15/19 22:00 Hibiclens For Decolonization - TP HS [facility] Cholecalciferol 1,000 unit 03/15/19 10:00 03/15/19 15:57 Vitamin D3 - PO 1,000 unit DAILY [facility] Administration Finasteride 5 mg 03/15/19 10:00 Proscar - PO DAILY [facility] Fludrocortisone Acetate 0.1 mg 03/15/19 10:00 Florinef - PO DAILY [facility] Heparin Sodium (Porcine) 5,000 unit 03/14/19 19:30 03/15/19 06:29 Heparin - SQ 5,000 unit TID [facility] Administration Ceftriaxone Sodium 1 gm/ 50 mls @ 200 mls/hr 03/15/19 14:30 Dextrose IVPB DAILY [facility] Protocol Potassium Chloride 10 meq in 100 mls @ 100 mls/hr 03/15/19 14:30 03/15/19 14: 41 Potassium Chloride 10 Meq Premix Ivpb - IVPB 03/15/19 17:29 100 mls/hr Q60M [facility] Administration Potassium Chloride/Sodium Chloride 20 meq in 1,000 mls @ 42 mls/hr 03/15/19 17 :30 Ns+20 Meq Kcl - IV ASDIR [facility] Levothyroxine Sodium 50 mcg 03/16/19 07:00 Synthroid - PO DAILY@0700 [facility] Mupirocin 1 applic 03/15/19 10:00 Bactroban Ointment (For Decolonization) - NS 03/20/19 09:59 BID [facility] Rosuvastatin Calcium 10 mg 03/15/19 22:00 Crestor - PO HS [facility] ASSESSMENT/PLAN: Titi Gary is a 79 year old male with a past medical history of Shy Dragers parkinson's disease, CAD (s/p quadruple bypass), pituitary tumor (s/p resection 1997),hypothyroidism (on synthroid 75mcg) who admitted with 1 week of AMS, diarrhea and falls. Presyncopal fall -> likely 2/2 Shy drager hx/dehydration/Iatrogenic Hyperthyroidism/UTI - admit to tele confirm lack of arrythmia given TSH - CT head negative for acute intracranial hemmorhage, CT cervical spine- C4-5, C5-6 degenerative central canal stenosis with signs of fracture. CT hip/pelvis is pending. - IVF hydration given recent diarrhea - orthostatic vitals prior to fluids given negative - TSH-0.29, FT4- 1.51 signifying iatrogenic hyperthyroidism given pt has no pituitary. - will decrease synthroid to 50mcg - Consult endo (Dr. Menjivar) for recs. - Seizure/Fall precautions implemented - PT eval in AM - echo showign EF 55-60%, moderately dilated left atrium, trace mitral and triscuspid regurg, mild aortic sclerosis - repeat EKG showing NSR, age indeterminate anterior infarct QTc 475 - UA + nitrites, 3+ LE, +bacteria, WBC - Ucx pending - ceftriaxone 1gm daily Diarrhea -> likely colitis/rule out c diff - CT Abd pelvis without contrast- no signs of colitis, diverticulitis, just diverticulosis. - ordered c diff, fecal calprotectin, stool c&s, ova and parasites in the interim. PO on CKD - possibly due to recent trauma or hypophosphatemia 2/2 diarrhea and poor po intake - CK-476 trending down to 402, continue to monitor - hold nephrotoxic agents, no contrast agents at this time - renal sono showing normal kidneys - Renal consulted (Dr. Correa) for PO on CKD recommendations. - continue fluids IV NS + KCl 42 cc/hr given Cardiac hx - urine lytes and [employer]PER[employer] Hypokalemia - continue potassium supplementation - monitor K every 4 hours - repeat EKG to monitor for changes - IV NS with 20 KCl - urine K to evaluate for TTKG - holding night time dose of hydrocortisone, reassess in morning Parkinson's Disease - continue home Sinemet CAD hx - continue home aspirin and atorvastatin Synthroid - decreased synthroid dose due to decreased TSH, signifying iatrogenic hyperthyroidism - endocrine consult FEN - IV NS + 20Kcl 42cc/hr - hypokalemia, hypomagnesemia, continue to replete - sodium controlled diet DVT PPX - Heparin 5000 units subq TID Dispo - continue to monitor on telemetry Visit type - Emergency Visit Emergency Visit: Yes ED Registration Date: 03/14/19 Care time: The patient presented to the Emergency Department on the above date and was hospitalized for further evaluation of their emergent condition. - New Patient This patient is new to me today: Yes Date on this admission: 03/15/19 - Critical Care Critical Care patient: No
[2019-03-15] MEDS: FLUDROCORTISONE ACETATE 0.1 MG TABLET (FP) PO SCH ×2 (17:20→17:21)
[2019-03-15] MEDS ORDERED: HYDROCORTISONE 5 MG TABLET PO SCH (17:30)
[2019-03-15] MEDS ORDERED: SODIUM CHLORIDE 0.9%/KCL 20 MEQ/1,000 ML INFUS.BAG IV SCH (17:30)
[2019-03-15] MEDS ORDERED: DEXTROSE 5%-WATER - 50 ML IVPB ONE (18:26)
[2019-03-15] MEDS ORDERED: cefTRIAXone SODIUM 1 GM VIAL ONE (18:26)
[2019-03-15] MEDS: CEFTRIAXONE 1 GM in DEXTROSE 5%-WATER - 50 ML IVPB SCH (18:34)
--- NOTE | 2019-03-15 19:04 | PN ---
Teaching Attending Note Name of Resident: Wade Cruz ATTENDING PHYSICIAN STATEMENT I saw and evaluated the patient. I reviewed the resident's note and discussed the case with the resident. I agree with the resident's findings and plan as documented. SUBJECTIVE: No complaints. No headache/visual disturbance/limb numbness or weakness. No chest pain/palpitations/lightheadedness OBJECTIVE: Afebrile, Hemodynamically Stable. Foul smelling of urine. Last Vital Signs Temp Pulse Resp BP Pulse Ox 97.4 F L 75 20 135/77 98 03/15/19 18:46 03/15/19 18:46 03/15/19 18:46 03/15/19 18:46 03/15/19 15:58 HEENT - Lips/tongue appear bloody - no intra-oral/tongue lesions. Dry lips. Normocephalic. Heart - S1 S2, RRR Lungs - clear to auscultation Abdomen - Soft, non-tender. Bowel Sounds normal. Extremtiies - bruised upper extremities, LE edema. Neuro - AAO x 3. Tone/Power normal. Laboratory Results - last 24 hr 03/15/19 03/15/19 03/15/19 05:30 05:30 05:30 WBC 8.0 RBC 3.55 L Hgb 10.6 L Hct 30.5 L MCV 85.9 MCH 29.8 MCHC 34.7 RDW 15.3 Plt Count 270 MPV 7.1 L Absolute Neuts (auto) 5.2 Neutrophils % 64.7 D Lymphocytes % 23.4 D Monocytes % 7.7 Eosinophils % 3.3 D Basophils % 0.9 Nucleated RBC % 0 Sodium 142 Potassium 2.2 L* Chloride 104 Carbon Dioxide 30 Anion Gap 8 BUN 16.8 Creatinine 2.6 H Est GFR (CKD-EPI)AfAm 26.20 Est GFR (CKD-EPI)NonAf 22.61 Random Glucose 64 L Calcium 7.2 L Phosphorus 1.4 L Magnesium 2.0 Total Bilirubin 0.4 AST 40 H ALT 7 L Alkaline Phosphatase 86 Creatine Kinase 402 H Creatine Kinase Index 0.7 CK-MB (CK-2) 3.1 Troponin I 0.03 Total Protein 5.2 L Albumin 2.2 L Urine Color Urine Appearance Urine pH Ur Specific [place] Urine Protein Urine Glucose (UA) Urine Ketones Urine Blood Urine Nitrite Urine Bilirubin Urine Urobilinogen Ur Leukocyte Esterase Urine WBC (Auto) Urine RBC (Auto) Urine Casts (Auto) U Epithel Cells (Auto) Urine Bacteria (Auto) Urine Yeast (Auto) Opiates Screen Methadone Screen Barbiturate Screen Phencyclidine Screen Ur Amphetamines Screen MDMA (Ecstasy) Screen Benzodiazepines Screen Cocaine Screen U Marijuana (THC) Screen 03/15/19 03/15/19 03/15/19 11:10 11:10 11:24 WBC RBC Hgb Hct MCV MCH MCHC RDW Plt Count MPV Absolute Neuts (auto) Neutrophils % Lymphocytes % Monocytes % Eosinophils % Basophils % Nucleated RBC % Sodium 143 Potassium 2.5 L* Chloride 105 Carbon Dioxide 30 Anion Gap 7 L BUN 16.1 Creatinine 2.7 H Est GFR (CKD-EPI)AfAm 25.03 Est GFR (CKD-EPI)NonAf 21.60 Random Glucose 77 Calcium 7.5 L Phosphorus Magnesium 1.8 Total Bilirubin AST ALT Alkaline Phosphatase Creatine Kinase Creatine Kinase Index CK-MB (CK-2) Troponin I Total Protein Albumin Urine Color Yellow Urine Appearance Clear Urine pH 6.0 Ur Specific [place] 1.007 L Urine Protein 2+ H Urine Glucose (UA) Negative Urine Ketones Negative Urine Blood 2+ H Urine Nitrite Positive H Urine Bilirubin Negative Urine Urobilinogen 0.2 Ur Leukocyte Esterase 3+ H Urine WBC (Auto) 10-15 Urine RBC (Auto) 0-4 Urine Casts (Auto) 0-8 U Epithel Cells (Auto) 0-5 Urine Bacteria (Auto) Positive Urine Yeast (Auto) Review A* Opiates Screen Negative Methadone Screen Negative Barbiturate Screen Negative Phencyclidine Screen Negative Ur Amphetamines Screen Negative MDMA (Ecstasy) Screen Negative Benzodiazepines Screen Negative Cocaine Screen Negative U Marijuana (THC) Screen Negative Current Medications Generic Name Dose Route Start Last Admin Trade Name Freq PRN Reason Stop Dose Admin Amlodipine Besylate 5 mg 03/15/19 10:00 03/15/19 10:22 Norvasc - PO 5 mg DAILY OSWALDO Administration Aspirin 81 mg 03/15/19 10:00 03/15/19 10:20 Asa - PO 81 mg DAILY OSWALDO Administration Carbidopa/Levodopa 1 combo 03/15/19 14:00 03/15/19 14:28 Sinemet *Cr* 50/200 - PO 1 combo TID OSWALDO Administration Chlorhexidine Gluconate 1 applic 03/15/19 22:00 Hibiclens For Decolonization - TP HS [facility] Cholecalciferol 1,000 unit 03/15/19 10:00 03/15/19 15:57 Vitamin D3 - PO 1,000 unit DAILY [facility] Administration Finasteride 5 mg 03/15/19 10:00 03/15/19 17:25 Proscar - PO Not Given DAILY [facility] Fludrocortisone Acetate 0.1 mg 03/15/19 10:00 03/15/19 17:21 Florinef - PO Not Given DAILY [facility] Heparin Sodium (Porcine) 5,000 unit 03/14/19 19:30 03/15/19 18:34 Heparin - SQ Not Given TID [facility] Hydrocortisone 5 mg 03/15/19 17:30 Cortef - PO DAILY [facility] Hydrocortisone 10 mg 03/16/19 09:00 Cortef - PO DAILY [facility] Ceftriaxone Sodium 1 gm/ 50 mls @ 200 mls/hr 03/15/19 14:30 03/15/19 18:34 Dextrose IVPB 200 mls/hr DAILY [facility] Administration Protocol Potassium Chloride/Sodium Chloride 20 meq in 1,000 mls @ 42 mls/hr 03/15/19 17 :30 03/15/19 18:33 Ns+20 Meq Kcl - IV 42 mls/hr ASDIR OSWALDO Administration Levothyroxine Sodium 50 mcg 03/16/19 07:00 Synthroid - PO DAILY@0700 [facility] Mupirocin 1 applic 03/15/19 10:00 Bactroban Ointment (For Decolonization) - NS 03/20/19 09:59 BID [facility] Rosuvastatin Calcium 10 mg 03/15/19 22:00 Crestor - PO [facility] Home Medications Medication Instructions Recorded Amlodipine Besylate 5 mg DAILY 03/14/19 Aspirin 81 mg DAILY 03/14/19 Carbidopa/Levodopa [Carbidopa-Levo 1 tab TID 03/14/19 ER 50-200 Tab] Cholecalciferol (Vitamin D3) 1,000 unit DAILY 03/14/19 [Vitamin D3] Finasteride 5 mg DAILY 03/14/19 Fludrocortisone Acetate 0.1 mg DAILY 03/14/19 Hydrocortisone 5 mg DAILY 03/14/19 Hydrocortisone 10 mg DAILY 03/14/19 Levothyroxine [Synthroid -] 75 mcg DAILY 03/14/19 Polyethylene Glycol 3350 17 gm DAILY 03/14/19 Rosuvastatin [Crestor -] 40 mg DAILY 03/14/19 Testosterone Cypionate 200 vial ASDIR 03/14/19 Ubidecarenone [Co Q-10] 30 mg DAILY 03/14/19 ASSESSMENT AND PLAN: 79 year old male with history of Parkinson Disease/Shy Drager Syndrome, Pituitary tumor (s/p resection), coronary artery disease (s/p CABG x4 vessels), hypothyroidism, HLD, HTN, presents with recurrent falls, poor oral intake, loose stool, and altered mental status. He was found to have severe electrolyte bnormalities including K 2.2 1. Acute Metabolic Encephalopathy likely sec to dehydration due to poor oral intake and reported diarrhea. CT Brain negative for acute findings. 2. Ambulatory Dysfunction/Falls - sec to above CT Head/CSpine negative for acute findings. Echo - normal. PT eval Anthony eval for possible progressive PD/Shy Drager's. Continue Carbidopa/Levodopa. 3. Severe Hypokalemia - sec to poor oral intake and GI losses. ?Adrenal dysfunction s/p Hx pituitary tumor resection Oral and IV repletion Telemonitoring ICU consult On fludrocortizone and Hydrocotizone, s/p pituitary tumor resection, Endocrinology consulted. 4. PO sec to dehydration Renal US - no obstruction Nephrology consulted. 5. Diarrhea - reported, no episodes since admission. CT A/P - Prostate enlargement, Diverticulosis, bibasilar atelectasis. Stool for Cx and Cdiff if further episodes. 6. Hypothyrosidism, on Synthroid - TSH low at 0.29. Synthroid dose reduced to 50mcg. Endocrinology consulted. 7. Coronary artery disease (s/p CABG x4 vessels) - continue ASA/Statin 8. HLD - on Statin. Held due to mild CPK elevation. 9. HTN - continue Norvasc. DVT Px - Heparin SQ
--- NOTE | 2019-03-15 19:33 | CONSULT ---
Consult - text type - Consultation Consultation Note: NEUROLOGY CONSULTATION is greatly appreciated: Events reviewed, patient examined. This 79 yo LH man os s/p hypophysectomy 20 years ago for pituitary tumor and is maintained on Cortef, synthroid and testosterone. 5 years of progressive change in speech, gait and balance due to Parkinson's disease. Started on low-dose L-dopa but limited by lightheadedness and BP fluctuations. Seen by me 12/26/18 and was essentially non-ambulatory. He has regained "independent ambulation" on Sinemet CR 50/200 TID @ 7, 12 and 5 but has become confused with multiple falls but apparently not associated with LOC/Syncope since addition of Flurinef 0,1 mg q AM. Now admitted with dehydration/diarrhea. SAMMI: Multiple ecchymoses. No bruits. Multiple BP's 130/70. 1 is 100/60. NEURO: Mild OMS. [facility], 2018. Trump. Remembers me + Glabella, snout suck Masked facies. Gag OK Motor: + Cogwheeling L>R. Normal strength. Decreased KJ's. Absent AJ' s. Toes downgoing. Coord: No FTN dystaxia Sensory: Decreased vib feet Gait: Deferred. IMP: Parkinson's disease May have some contribution from dysautonomia but predominately due to Volume depletion (Addisonian). Mild OMS Will worsen with Toxic-metabolic encephalopathy (landy. Infection) Suggest: Continue antibiotics, hydration. Check B12, TSH, T4, T3, RPR, ACTH. Endocrine consultation Continue Sinemet CR 50/200 PO TID @ 7, 12, 5 Continue Flurinef 0.1 mg qAM Quetiapine 12.5-25 mg QHS PRN agitation/sundowning. Mobilize OO Bed to chair TID for meals and check orthostatic BP's TID at mealtimes PM&R eval and PT as directed for gait with walker. Thank you very much, Tj Arndt MD
[2019-03-15 20:18] LABS: BLOOD UREA NITROGEN 17.8 mg/dL (7-18); CALCIUM 7.1 mg/dL (8.5-10.1); CREATININE 2.8 mg/dL (0.55-1.3)
[2019-03-15 20:20] LABS: POTASSIUM 2.8 mmol/L (3.5-5.1)
[2019-03-15] MEDS ORDERED: PT OWN MED DRAWER 7, Y5N ONE (21:49)
[2019-03-15] MEDS ORDERED: CHLORHEXIDINE GLUCONATE 4% CLEANSER FOR DECOLONIZATION TP SCH (22:00)
[2019-03-15] MEDS ORDERED: ROSUVASTATIN CA 10 MG TABLET (FP) PO SCH (22:00)
[2019-03-15] MEDS ORDERED: KCL 10 MEQ IVPB 10 MEQ/100 ML INFUS.BAG IVPB SCH (22:30)
[2019-03-16 01:24] LABS: BLOOD UREA NITROGEN 18.5 mg/dL (7-18); CALCIUM 7.2 mg/dL (8.5-10.1); CREATININE 2.9 mg/dL (0.55-1.3); POTASSIUM 3.2 mmol/L (3.5-5.1)
[2019-03-16] MEDS ORDERED: SODIUM CHLORIDE 1,000 ML with POTASSIUM CHLORIDE 20 MEQ IVPB SCH (01:45)
[2019-03-16] MEDS ORDERED: SODIUM CHLORIDE 0.45%/POT 20 MEQ/1,000 ML INFUS.BAG IV SCH (02:00)
[2019-03-16] MEDS ORDERED: POTASSIUM PHOSPHATE 30 MM in DEXTROSE 5%-WATER - 250 ML IVPB ONE (05:30)
[2019-03-16] MEDS: HEPARIN NA (PORCINE) 5,000 UNITS/ML 1ML VIAL SQ SCH ×3 (05:59→21:59)
[2019-03-16] MEDS ORDERED: LEVOTHYROXINE NA 50 MCG TABLET (FP) PO SCH (07:00)
[2019-03-16 08:01] LABS: HEMATOCRIT 30.6 % (35.4-49); HEMOGLOBIN 10.6 GM/dL (11.7-16.9); MCH 30.1 pg (25.7-33.7); MCHC 34.7 g/dl (32.0-35.9); MEAN CELL VOLUME 86.8 fl (80-96); MEAN PLT VOLUME 7.4 fl (7.5-11.1); PLATELET COUNT 233 K/MM3 (134-434); RBC 3.52 M/mm3 (4.00-5.60); RDW 15.8 % (11.9-15.9); WHITE BLOOD COUNT 9.2 K/mm3 (4.0-10.0)
[2019-03-16 08:29] LABS: BILIRUBIN,TOTAL 0.6 mg/dL (0.2-1); BLOOD UREA NITROGEN 18.4 mg/dL (7-18); CALCIUM 7.1 mg/dL (8.5-10.1); TOT PROT 4.8 g/dl (6.4-8.2)
[2019-03-16 08:37] LABS: POTASSIUM 2.8 mmol/L (3.5-5.1)
[2019-03-16] MEDS ORDERED: POTASSIUM CHLORIDE TABS 20 MEQ TABLET.ER (FP) PO ONE ×2 (08:42→14:01)
[2019-03-16] MEDS ORDERED: D5-1/2NS+20 MEQ KCL - 20 MEQ/1,000 ML INFUS.BAG IV SCH (08:45)
[2019-03-16] MEDS ORDERED: DEXTROSE 5%-WATER - 50 ML IVPB ONE (08:57)
[2019-03-16] MEDS ORDERED: cefTRIAXone SODIUM 1 GM VIAL ONE (08:57)
[2019-03-16] MEDS ORDERED: HYDROCORTISONE 10 MG TABLET PO SCH (09:00)
[2019-03-16] MEDS: KCL 10 MEQ IVPB 10 MEQ/100 ML INFUS.BAG IVPB SCH ×6 (09:29→17:22)
[2019-03-16] MEDS: CHOLECALCIFEROL (VIT D3) 1,000 UNIT (25 MCG) TABLET PO SCH (09:30)
[2019-03-16] MEDS: ASPIRIN 81 MG CHEWABLE TABLETS PO SCH (09:31)
[2019-03-16] MEDS: CEFTRIAXONE 1 GM in DEXTROSE 5%-WATER - 50 ML IVPB SCH (09:34)
[2019-03-16] MEDS ORDERED: amLODIPine BESYLATE 5 MG TABLET (FP) PO SCH (10:00)
[2019-03-16] MEDS ORDERED: FLUDROCORTISONE ACETATE 0.1 MG TABLET (FP) PO SCH (10:00)
[2019-03-16] MEDS ORDERED: FINASTERIDE 5 MG TABLET (FP) PO SCH (10:00)
--- NOTE | 2019-03-16 12:17 | PN ---
Teaching Attending Note Name of Resident: Wade Cruz ATTENDING PHYSICIAN STATEMENT I saw and evaluated the patient. I reviewed the resident's note and discussed the case with the resident. I agree with the resident's findings and plan as documented. SUBJECTIVE: No complaints. No headache/visual disturbance/limb numbness or weakness. No chest pain/palpitations/lightheadedness. Further loose stool today. OBJECTIVE: Afebrile, Hemodynamically Stable. Last Vital Signs Temp Pulse Resp BP Pulse Ox 97.4 F L 75 18 100/56 L 94 L 03/16/19 09:46 03/16/19 09:46 03/16/19 09:46 03/16/19 09:46 03/15/19 18:00 HEENT - Lips/tongue appear bloody - no intra-oral/tongue lesions. Dry lips. Normocephalic. Heart - S1 S2, RRR Lungs - clear to auscultation Abdomen - Soft, non-tender. Bowel Sounds normal. Extremtiies - bruised upper extremities, LE edema + Neuro - AAO x 3. Tone/Power normal. Laboratory Results - last 24 hr 03/15/19 03/15/19 03/15/19 05:30 11:24 11:30 WBC RBC Hgb Hct MCV MCH MCHC RDW Plt Count MPV Sodium 143 Potassium 2.5 L* Chloride 105 Carbon Dioxide 30 Anion Gap 7 L BUN 16.1 Creatinine 2.7 H Est GFR (CKD-EPI)AfAm 25.03 Est GFR (CKD-EPI)NonAf 21.60 POC Glucometer Random Glucose 77 Serum Osmolality Calcium 7.5 L Magnesium 1.8 Total Bilirubin AST ALT Alkaline Phosphatase Total Protein Albumin Vitamin B12 PTH Intact 54 Urine Osmolality 176 L 03/15/19 03/15/19 03/15/19 19:00 19:00 19:00 WBC RBC Hgb Hct MCV MCH MCHC RDW Plt Count MPV Sodium 142 Potassium 2.8 L* 2.8 L* Chloride 104 Carbon Dioxide 30 Anion Gap 7 L BUN 17.8 Creatinine 2.8 H Est GFR (CKD-EPI)AfAm 23.96 Est GFR (CKD-EPI)NonAf 20.67 POC Glucometer Random Glucose 75 Serum Osmolality 299 Calcium 7.1 L Magnesium Total Bilirubin AST ALT Alkaline Phosphatase Total Protein Albumin Vitamin B12 PTH Intact Urine Osmolality 03/16/19 03/16/19 03/16/19 00:45 00:45 06:31 WBC 9.2 RBC 3.52 L Hgb 10.6 L Hct 30.6 L MCV 86.8 MCH 30.1 MCHC 34.7 RDW 15.8 Plt Count 233 MPV 7.4 L Sodium 146 H Potassium 3.2 L Cancelled Chloride 111 H Carbon Dioxide 28 Anion Gap 8 BUN 18.5 H Creatinine 2.9 H Est GFR (CKD-EPI)AfAm 22.96 Est GFR (CKD-EPI)NonAf 19.81 POC Glucometer Random Glucose 64 L Serum Osmolality Calcium 7.2 L Magnesium Total Bilirubin AST ALT Alkaline Phosphatase Total Protein Albumin Vitamin B12 PTH Intact Urine Osmolality 03/16/19 03/16/19 06:31 10:36 WBC RBC Hgb Hct MCV MCH MCHC RDW Plt Count MPV Sodium 147 H Potassium 2.8 L* Chloride 111 H Carbon Dioxide 28 Anion Gap 8 BUN 18.4 H Creatinine 3.0 H Est GFR (CKD-EPI)AfAm 22.04 Est GFR (CKD-EPI)NonAf 19.02 POC Glucometer 104 Random Glucose 50 L Serum Osmolality Calcium 7.1 L Magnesium Total Bilirubin 0.6 AST 31 ALT 6 L Alkaline Phosphatase 85 Total Protein 4.8 L Albumin 2.0 L Vitamin B12 625 PTH Intact Urine Osmolality Current Medications Generic Name Dose Route Start Last Admin Trade Name Freq PRN Reason Stop Dose Admin Amlodipine Besylate 5 mg 03/16/19 10:00 03/16/19 09:30 Norvasc - PO Not Given DAILY OSWALDO Aspirin 81 mg 03/16/19 10:00 03/16/19 09:31 Asa - PO 81 mg DAILY OSWALDO Administration Carbidopa/Levodopa 1 combo 03/16/19 07:00 03/16/19 12:09 Sinemet *Cr* 50/200 - PO 1 combo 0700,1200,1700 OSWALDO Administration Cholecalciferol 1,000 unit 03/16/19 10:00 03/16/19 09:30 Vitamin D3 - PO 1,000 unit DAILY OSWALDO Administration Finasteride 5 mg 03/16/19 10:00 03/16/19 09:30 Proscar - PO 5 mg DAILY OSWALDO Administration Fludrocortisone Acetate 0.1 mg 03/16/19 10:00 03/16/19 09:30 Florinef - PO 0.1 mg DAILY OSWALDO Administration Heparin Sodium (Porcine) 5,000 unit 03/16/19 14:00 Heparin - SQ TID [facility] Hydrocortisone 5 mg 03/15/19 17:30 Cortef - PO DAILY@1730 [facility] Hydrocortisone 10 mg 03/16/19 09:00 03/16/19 09:31 Cortef - PO 10 mg DAILY@0900 [facility] Administration Ceftriaxone Sodium 1 gm/ 50 mls @ 200 mls/hr 03/15/19 14:30 03/16/19 09:34 Dextrose IVPB 200 mls/hr DAILY [facility] Administration Protocol Levothyroxine Sodium 50 mcg 03/17/19 07:00 Synthroid - PO DAILY@0700 [facility] Home Medications Medication Instructions Recorded Amlodipine Besylate 5 mg DAILY 03/14/19 Aspirin 81 mg DAILY 03/14/19 Carbidopa/Levodopa [Carbidopa-Levo 1 tab TID 03/14/19 ER 50-200 Tab] Cholecalciferol (Vitamin D3) 1,000 unit DAILY 03/14/19 [Vitamin D3] Finasteride 5 mg DAILY 03/14/19 Fludrocortisone Acetate 0.1 mg DAILY 03/14/19 Hydrocortisone 5 mg DAILY 03/14/19 Hydrocortisone 10 mg DAILY 03/14/19 Levothyroxine [Synthroid -] 75 mcg DAILY 03/14/19 Polyethylene Glycol 3350 17 gm DAILY 03/14/19 Rosuvastatin [Crestor -] 40 mg DAILY 03/14/19 Testosterone Cypionate 200 vial ASDIR 03/14/19 Ubidecarenone [Co Q-10] 30 mg DAILY 03/14/19 ASSESSMENT AND PLAN: 79 year old male with history of Parkinson Disease/Shy Drager Syndrome, Pituitary tumor (s/p resection), coronary artery disease (s/p CABG x4 vessels), hypothyroidism, HLD, HTN, presents with recurrent falls, poor oral intake, loose stool, and altered mental status. He was found to have severe electrolyte abnormalities including K 2.2 1. Acute Metabolic Encephalopathy likely sec to dehydration due to poor oral intake and reported diarrhea - resolved. AAO x [address] Brain negative for acute findings. Neurology consulted and recommend Quetiapine 12.5-25 mg QHS PRN for agitation/ sundowning. 2. Ambulatory Dysfunction/Falls - sec to above CT Head/C-Spine negative for acute findings. Echo - normal. PT eval Anthony eval appreciated for PD/Shy Drager's - recommend continuing Carbidopa/ Levodopa. 3. Severe Hypokalemia - sec to poor oral intake, GI losses, Florinef, Hydrocortizone (for Adrenal dysfunction s/p Hx pituitary tumor resection) Oral and IV repletion ongoing Telemonitoring On fludrocortizone and Hydrocotizone, s/p pituitary tumor resection, Endocrinology consulted. 4. PO sec to dehydration - Creat continues to climb despite hydration, now edematous. Renal US - no obstruction Nephrology following. 5. Diarrhea - ongoing. Cdiff/Stool Cx requested. CT A/P - Prostate enlargement, Diverticulosis, bibasilar atelectasis. Will hold Ceftriaxone for now (being given empirically for possible UTI, Urine Cx contaminated, will send repeat UCx). 6. Hypothyrosidism, on Synthroid - TSH low at 0.29. Synthroid dose reduced to 50mcg. Endocrinology consulted. 7. Coronary artery disease (s/p CABG x4 vessels) - continue ASA. Statin held. 8. HLD - on Statin. Held due to mild CPK elevation. 9. HTN - continue Norvasc. DVT Px - Heparin SQ
--- NOTE | 2019-03-16 12:26 | PN ---
Progress Note (short form) - Note Progress Note: RENAL Pt awake and alert comfortable says he had a bm Last Vital Signs Temp Pulse Resp BP Pulse Ox 97.4 F L 75 18 100/56 L 94 L 03/16/19 09:46 03/16/19 09:46 03/16/19 09:46 03/16/19 09:46 03/15/19 18:00 lungs clear anteriorly cvs s1s2 rr abd soft ext +edema neuro a+o CBC, BMP 03/16/19 06:31 03/16/19 06:31 Current Medications Generic Name Dose Route Start Last Admin Trade Name Freq PRN Reason Stop Dose Admin Amlodipine Besylate 5 mg 03/16/19 10:00 03/16/19 09:30 Norvasc - PO Not Given DAILY OSWALDO Aspirin 81 mg 03/16/19 10:00 03/16/19 09:31 Asa - PO 81 mg DAILY OSWALDO Administration Carbidopa/Levodopa 1 combo 03/16/19 07:00 03/16/19 12:09 Sinemet *Cr* 50/200 - PO 1 combo 0700,1200,1700 OSWALDO Administration Cholecalciferol 1,000 unit 03/16/19 10:00 03/16/19 09:30 Vitamin D3 - PO 1,000 unit DAILY OSWALDO Administration Finasteride 5 mg 03/16/19 10:00 03/16/19 09:30 Proscar - PO 5 mg DAILY OSWALDO Administration Fludrocortisone Acetate 0.1 mg 03/16/19 10:00 03/16/19 09:30 Florinef - PO 0.1 mg DAILY OSWALDO Administration Heparin Sodium (Porcine) 5,000 unit 03/16/19 14:00 Heparin - SQ TID OSWALDO Hydrocortisone 5 mg 03/15/19 17:30 Cortef - PO DAILY@1730 [facility] Hydrocortisone 10 mg 03/16/19 09:00 03/16/19 09:31 Cortef - PO 10 mg DAILY@0900 [facility]ALDO Administration Ceftriaxone Sodium 1 gm/ 50 mls @ 200 mls/hr 03/15/19 14:30 03/16/19 09:34 Dextrose IVPB 200 mls/hr DAILY OSWALDO Administration Protocol Potassium Chloride/Dextrose/Sod Cl 20 meq in 1,000 mls @ 75 mls/hr 03/16/19 08 :45 03/16/19 10:45 D5-1/2ns+20 Meq Kcl - IV 75 mls/hr ASDIR OSWALDO Administration Levothyroxine Sodium 50 mcg 03/17/19 07:00 Synthroid - PO DAILY@0700 [facility] Impression 1. PO 2. hypokalemia in part from steroids 3. s/p pituitary tumor resection 4. 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 Both will drop his k MV
--- NOTE | 2019-03-16 12:59 | PN ---
Progress Note (short form) - Note Progress Note: Resting in NAD. Feels better. No acute events overnight. Intake & Output 03/13/19 03/14/19 03/15/19 03/16/19 23:59 23:59 23:59 23:59 Intake Total 1020 1300 Balance 1020 1300 Weight 178 lb 178 lb Last Vital Signs Temp Pulse Resp BP Pulse Ox 97.4 F L 75 18 100/56 L 94 L 03/16/19 09:46 03/16/19 09:46 03/16/19 09:46 03/16/19 09:46 03/15/19 18:00 Active Medications Amlodipine Besylate (Norvasc -) 5 mg PO DAILY [facility] Last Admin: 03/16/19 09:30 Dose: Not Given Aspirin (Asa -) 81 mg PO DAILY [facility] Last Admin: 03/16/19 09:31 Dose: 81 mg Carbidopa/Levodopa (Sinemet *Cr* 50/200 -) 1 combo PO 0700,1200,1700 [facility] Last Admin: 03/16/19 12:09 Dose: 1 combo Cholecalciferol (Vitamin D3 -) 1,000 unit PO DAILY [facility] Last Admin: 03/16/19 09:30 Dose: 1,000 unit Finasteride (Proscar -) 5 mg PO DAILY [facility] Last Admin: 03/16/19 09:30 Dose: 5 mg Fludrocortisone Acetate (Florinef -) 0.1 mg PO DAILY [facility] Last Admin: 03/16/19 09:30 Dose: 0.1 mg Heparin Sodium (Porcine) (Heparin -) 5,000 unit SQ TID [facility] Hydrocortisone (Cortef -) 5 mg PO DAILY@1730 [facility] Hydrocortisone (Cortef -) 10 mg PO DAILY@0900 [facility] Last Admin: 03/16/19 09:31 Dose: 10 mg Ceftriaxone Sodium 1 gm/ (Dextrose) 50 mls @ 200 mls/hr IVPB DAILY [facility]; Protocol Last Admin: 03/16/19 09:34 Dose: 200 mls/hr Potassium Chloride/Dextrose/Sod Cl (D5-1/2ns+20 Meq Kcl -) 20 meq in 1,000 mls @ 75 mls/hr IV ASDIR [facility] Last Admin: 03/16/19 10:45 Dose: 75 mls/hr Levothyroxine Sodium (Synthroid -) 50 mcg PO DAILY@0700 [facility] GENERAL: Awake, alert, and fully oriented, in no acute distress. HEAD: Normal with no signs of trauma. EYES: sclera anicteric, conjunctiva clear. No lid lag. EARS, NOSE, THROAT: Ears normal, nares patent, oropharynx clear without exudates. Moist mucous membranes. NECK: Normal range of motion, supple without lymphadenopathy, JVD, or masses. LUNGS: Breath sounds equal, clear to auscultation bilaterally. No wheezes, and no crackles. No accessory muscle use. HEART: Regular rate and rhythm, normal S1 and S2 without murmur, rub or gallop. ABDOMEN: Soft, nontender, not distended, normoactive bowel sounds, no guarding, no rebound, no masses. No hepatomegaly or splenomegaly. MUSCULOSKELETAL: Normal range of motion at all joints. No bony deformities or tenderness. No CVA tenderness. UPPER EXTREMITIES: 2+ pulses, warm, well-perfused. No cyanosis. No clubbing. Cap refill <2 seconds. No peripheral edema. LOWER EXTREMITIES: 2+ pulses, warm, well-perfused. No calf tenderness. No peripheral edema. NEUROLOGICAL: Non-focal PSYCHIATRIC: Cooperative. Good eye contact. Appropriate mood and affect. SKIN: Warm, dry, normal turgor, no rashes or lesions noted. Laboratory Results - last 24 hr 03/15/19 03/15/19 03/15/19 05:30 11:24 11:30 WBC RBC Hgb Hct MCV MCH MCHC RDW Plt Count MPV Sodium 143 Potassium 2.5 L* Chloride 105 Carbon Dioxide 30 Anion Gap 7 L BUN 16.1 Creatinine 2.7 H Est GFR (CKD-EPI)AfAm 25.03 Est GFR (CKD-EPI)NonAf 21.60 POC Glucometer Random Glucose 77 Serum Osmolality Calcium 7.5 L Magnesium 1.8 Total Bilirubin AST ALT Alkaline Phosphatase Total Protein Albumin Vitamin B12 PTH Intact 54 Urine Osmolality 176 L 03/15/19 03/15/19 03/15/19 19:00 19:00 19:00 WBC RBC Hgb Hct MCV MCH MCHC RDW Plt Count MPV Sodium 142 Potassium 2.8 L* 2.8 L* Chloride 104 Carbon Dioxide 30 Anion Gap 7 L BUN 17.8 Creatinine 2.8 H Est GFR (CKD-EPI)AfAm 23.96 Est GFR (CKD-EPI)NonAf 20.67 POC Glucometer Random Glucose 75 Serum Osmolality 299 Calcium 7.1 L Magnesium Total Bilirubin AST ALT Alkaline Phosphatase Total Protein Albumin Vitamin B12 PTH Intact Urine Osmolality 03/16/19 03/16/19 03/16/19 00:45 00:45 06:31 WBC 9.2 RBC 3.52 L Hgb 10.6 L Hct 30.6 L MCV 86.8 MCH 30.1 MCHC 34.7 RDW 15.8 Plt Count 233 MPV 7.4 L Sodium 146 H Potassium 3.2 L Cancelled Chloride 111 H Carbon Dioxide 28 Anion Gap 8 BUN 18.5 H Creatinine 2.9 H Est GFR (CKD-EPI)AfAm 22.96 Est GFR (CKD-EPI)NonAf 19.81 POC Glucometer Random Glucose 64 L Serum Osmolality Calcium 7.2 L Magnesium Total Bilirubin AST ALT Alkaline Phosphatase Total Protein Albumin Vitamin B12 PTH Intact Urine Osmolality 03/16/19 03/16/19 06:31 10:36 WBC RBC Hgb Hct MCV MCH MCHC RDW Plt Count MPV Sodium 147 H Potassium 2.8 L* Chloride 111 H Carbon Dioxide 28 Anion Gap 8 BUN 18.4 H Creatinine 3.0 H Est GFR (CKD-EPI)AfAm 22.04 Est GFR (CKD-EPI)NonAf 19.02 POC Glucometer 104 Random Glucose 50 L Serum Osmolality Calcium 7.1 L Magnesium Total Bilirubin 0.6 AST 31 ALT 6 L Alkaline Phosphatase 85 Total Protein 4.8 L Albumin 2.0 L Vitamin B12 625 PTH Intact Urine Osmolality ASSESSMENT/PLAN: Resolving Hypokalemia Virginie Figueroa Parkinson's disease CAD (s/p quadruple bypass) Pituitary tumor (s/p resection 1997) Hypothyroidism AMS Falls Replete lytes PRN O2 as needed Continue home meds PO as tolerated Cardiac Telemetry monitoring Dr Hernandez
[2019-03-16] MEDS ORDERED: MAGNESIUM SULF 50% (8.12 MEQ/2 ML-1 GM VIAL) IVPB ONE ×2 (14:01→15:00)
[2019-03-16 16:11] LABS: BLOOD UREA NITROGEN 18.2 mg/dL (7-18); MAGNESIUM 1.8 mg/dL (1.8-2.4); PHOSPHOROUS 4.2 mg/dL (2.5-4.9)
[2019-03-16] MEDS: HYDROCORTISONE SOD SUCCINATE 100 MG/2 ML VIAL IVPUSH SCH ×2 (16:16→21:59)
[2019-03-16 16:17] LABS: CALCIUM 6.8 mg/dL (8.5-10.1)
[2019-03-16 16:47] LABS: ALBUMIN 2.1 g/dl (3.4-5.0)
--- NOTE | 2019-03-16 17:12 | PN ---
Physical Exam: SUBJECTIVE: Patient seen and examined at the bedside. Stated he is doing better than when he came in. Stated he has a good appetite and feels thirsty. Endorses unsteadiness on his feet. Denies cp, sob, abd pain, n/v/c/d, fever, chills, numbness, tingling, visual changes, lightheadedness, dizziness. OBJECTIVE: Vital Signs Period Temp Pulse Resp BP Sys/Miguel Pulse Ox Last 24 Hr 97.4 F-98.3 F 75-83 16-20 100-135/56-77 94-95 GENERAL: Awake, alert, and fully oriented, in no acute distress. HEAD: Normal with no signs of trauma. ENT: Moist mucous membranes, some dried blood in oropharynx. LUNGS: Breath sounds equal, clear to auscultation bilaterally. No wheezes, and no crackles. No accessory muscle use. HEART: Regular rate and rhythm, normal S1 and S2 without murmur, rub. ABDOMEN: Soft, nontender, not distended, normoactive bowel sounds, no guarding, no rebound, no masses. UPPER EXTREMITIES: 2+ pulses, warm, well-perfused. No cyanosis. No clubbing. No peripheral edema. LOWER EXTREMITIES: 2+ pulses, warm, well-perfused. No calf tenderness. 2+ peripheral edema. NEUROLOGICAL: Cranial nerves II-XII intact. 4/5 UE against resistance, able to lift legs on passive ROM (4/5), normal sensation. Cogwheeling present in L arm. Unable to perform rapid movements. PSYCHIATRIC: Cooperative. Good eye contact. Appropriate mood and affect. SKIN: Warm, dry, ecchymosis on bilateral arms. Laboratory Results - last 24 hr 03/15/19 03/15/19 03/15/19 05:30 11:30 19:00 WBC RBC Hgb Hct MCV MCH MCHC RDW Plt Count MPV Sodium 142 Potassium 2.8 L* Chloride 104 Carbon Dioxide 30 Anion Gap 7 L BUN 17.8 Creatinine 2.8 H Est GFR (CKD-EPI)AfAm 23.96 Est GFR (CKD-EPI)NonAf 20.67 POC Glucometer Random Glucose 75 Serum Osmolality Calcium 7.1 L Phosphorus Magnesium Total Bilirubin AST ALT Alkaline Phosphatase Total Protein Albumin Vitamin B12 PTH Intact 54 Urine Osmolality 176 L RPR Titer 03/15/19 03/15/1919 19:00 19:00 00:45 WBC RBC Hgb Hct MCV MCH MCHC RDW Plt Count MPV Sodium 146 H Potassium 2.8 L* 3.2 L Chloride 111 H Carbon Dioxide 28 Anion Gap 8 BUN 18.5 H Creatinine 2.9 H Est GFR (CKD-EPI)AfAm 22.96 Est GFR (CKD-EPI)NonAf 19.81 POC Glucometer Random Glucose 64 L Serum Osmolality 299 Calcium 7.2 L Phosphorus Magnesium Total Bilirubin AST ALT Alkaline Phosphatase Total Protein Albumin Vitamin B12 PTH Intact Urine Osmolality RPR Titer 03/16/19 03/16/19 03/16/19 00:45 06:31 06:31 WBC 9.2 RBC 3.52 L Hgb 10.6 L Hct 30.6 L MCV 86.8 MCH 30.1 MCHC 34.7 RDW 15.8 Plt Count 233 MPV 7.4 L Sodium 147 H Potassium Cancelled 2.8 L* Chloride 111 H Carbon Dioxide 28 Anion Gap 8 BUN 18.4 H Creatinine 3.0 H Est GFR (CKD-EPI)AfAm 22.04 Est GFR (CKD-EPI)NonAf 19.02 POC Glucometer Random Glucose 50 L Serum Osmolality Calcium 7.1 L Phosphorus Magnesium Total Bilirubin 0.6 AST 31 ALT 6 L Alkaline Phosphatase 85 Total Protein 4.8 L Albumin 2.0 L Vitamin B12 625 PTH Intact Urine Osmolality RPR Titer 03/16/19 03/16/19 03/16/19 06:31 10:36 15:35 WBC RBC Hgb Hct MCV MCH MCHC RDW Plt Count MPV Sodium 142 Potassium 4.0 Chloride 107 Carbon Dioxide 27 Anion Gap 8 BUN 18.2 H Creatinine 3.0 H Est GFR (CKD-EPI)AfAm 22.04 Est GFR (CKD-EPI)NonAf 19.02 POC Glucometer 104 Random Glucose 122 H Serum Osmolality Calcium 6.8 L* Phosphorus 4.2 Magnesium 1.8 Total Bilirubin AST ALT Alkaline Phosphatase Total Protein Albumin 2.1 L Vitamin B12 PTH Intact Urine Osmolality RPR Titer Nonreactive Active Medications Generic Name Dose Route Start Last Admin Trade Name Freq PRN Reason Stop Dose Admin Amlodipine Besylate 5 mg 03/16/19 10:00 03/16/19 09:30 Norvasc - PO Not Given DAILY OSWALDO Aspirin 81 mg 03/16/19 10:00 03/16/19 09:31 Asa - PO 81 mg DAILY OSWALDO Administration Calcium Carbonate 650 mg 03/16/19 17:15 Calcium Carbonate - PO DAILY OSWALDO Carbidopa/Levodopa 1 combo 03/16/19 07:00 03/16/19 12:09 Sinemet *Cr* 50/200 - PO 1 combo 0700,1200,1700 OSWALDO Administration Cholecalciferol 1,000 unit 03/16/19 10:00 03/16/19 09:30 Vitamin D3 - PO 1,000 unit DAILY OSWALDO Administration Finasteride 5 mg 03/16/19 10:00 03/16/19 09:30 Proscar - PO 5 mg DAILY OSWALDO Administration Heparin Sodium (Porcine) 5,000 unit 03/16/19 14:00 03/16/19 14:43 Heparin - SQ 5,000 unit TID OSWALDO Administration Hydrocortisone Sodium Succinate 100 mg 03/16/19 15:15 03/16/19 16:16 Solu-Cortef - IVPUSH 100 mg TID OSWALDO Administration Levothyroxine Sodium 50 mcg 03/17/19 07:00 Synthroid - PO DAILY@0700 [facility] ASSESSMENT/PLAN: Titi Gary is a 79 year old male with a past medical history of Shy Dragers parkinson's disease, CAD (s/p quadruple bypass), pituitary tumor (s/p resection 1997),hypothyroidism (on synthroid 75mcg) who admitted with 1 week of AMS, diarrhea and falls. Presyncopal fall -> likely 2/2 Shy drager hx/dehydration/Iatrogenic Hyperthyroidism/UTI - CT head negative for acute intracranial hemmorhage, CT cervical spine- C4-5, C5-6 degenerative central canal stenosis with signs of fracture. CT hip/pelvis is pending. - IVF hydration stopped due to edema, patient strength and lethagy improvement - orthostatic vitals prior to fluids given negative - will decrease synthroid to 50mcg pending final recommendation from Dr. Ferguson - Consult endo (Dr. Menjivar) for recs, spoken to today and recommended switching to IV Solu-cortef 100mg tid as likely poor absorption of PO meds in setting of diarrhea, hold PO hydrocortisone and florinef. Will continue Solu- cortef for 24 hours and reassess. - Seizure/Fall precautions implemented - PT eval - echo showing EF 55-60%, moderately dilated left atrium, trace mitral and triscuspid regurg, mild aortic sclerosis - repeat EKG showing NSR, age indeterminate anterior infarct QTc 475 - UA + nitrites, 3+ LE, +bacteria, WBC - Ucx first contaminated, repeat pending - abx held pending repeat culture, patient afebrile, no WBC, asymptomatic Diarrhea -> likely colitis/rule out c diff - CT Abd pelvis without contrast- no signs of colitis, diverticulitis, just diverticulosis. - ordered c diff, fecal calprotectin, stool c&s, ova and parasites in the interim. PO on CKD - possibly due to recent trauma or hypophosphatemia 2/2 diarrhea and poor po intake - CK-476 trending down to 402, continue to monitor - renal sono showing normal kidneys - Renal consulted (Dr. Correa) for PO on CKD recommendations. 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 - ordered ACTH and AM cortisol Hypokalemia - continue potassium supplementation, improved today 4.0, continue to monitor - monitor K every 4 hours - repeat EKG with no acute changes - urine K to evaluate for TTKG - repleting hypomagnesemia Parkinson's Disease - continue home Sinemet - neurology consulted, recs appreciated - PT eval - Seroquel 12.5mg prn for agitation at night CAD hx - continue home aspirin and atorvastatin Synthroid - decreased synthroid dose due to decreased TSH, signifying iatrogenic hyperthyroidism - endocrine consult FEN - no standing fluids, encourage PO intake - hypokalemia, hypomagnesemia, resolving. Hypocalcemia noted and repleted, continue to monitor - sodium controlled diet DVT PPX - Heparin 5000 units subq TID Dispo - continue to monitor on telemetry Visit type - Emergency Visit Emergency Visit: Yes ED Registration Date: 03/14/19 Care time: The patient presented to the Emergency Department on the above date and was hospitalized for further evaluation of their emergent condition. - New Patient This patient is new to me today: No - Critical Care Critical Care patient: No
[2019-03-16] MEDS ORDERED: CALCIUM CARBONATE 650 MG TABLET PO SCH (17:15)
[2019-03-16] MEDS ORDERED: QUEtiapine FUMARATE 25 MG TABLET (FP) PO PRN (17:27)
[2019-03-16] MEDS ORDERED: HYDROCORTISONE 5 MG TABLET PO SCH (17:30)
[2019-03-16 20:21] LABS: BLOOD UREA NITROGEN 17.2 mg/dL (7-18); MAGNESIUM 2.4 mg/dL (1.8-2.4); PHOSPHOROUS 3.5 mg/dL (2.5-4.9); POTASSIUM 4.7 mmol/L (3.5-5.1)
[2019-03-16 20:35] LABS: CALCIUM 6.8 mg/dL (8.5-10.1)
[2019-03-16 21:29] LABS: ALBUMIN 2.3 g/dl (3.4-5.0)
--- NOTE | 2019-03-16 21:55 | CONSULT ---
Consult Consult Specialty:: Endocrine Referred by:: Oscar Mccormick Resident Physician Reason for Consultation:: hypopituitary. adrenal insuficiency - History of Present Illness Chief Complaint: weak and confused History of Present Illness: 79M with PMH Hypopit,sp pituitary tumor resection,hypothyroidism on Hormone replacement steroid support, Parkinson's c/b autonomic hypotension, CAD s/p CABG , BPH, presented with AMS, decrease of appetite, diarrhea, frequent falls.subsequent electrolyte imbalance,requiring K replacement and fluid resuscitation. - Alcohol/Substance Use Hx Alcohol Use: No - Smoking History Smoking history: Former smoker Have you smoked in the past 12 months: Yes If you are a former smoker, when did you quit?: 1967 Home Medications - Allergies Allergies/Adverse Reactions: Allergies Allergy/AdvReac Type Severity Reaction Status Date / Time No Known Allergies Allergy Verified 03/14/19 13:34 - Home Medications Home Medications: Ambulatory Orders Amlodipine Besylate 5 mg DAILY 03/14/19 Aspirin 81 mg DAILY 03/14/19 Carbidopa/Levodopa [Carbidopa-Levo ER 50-200 Tab] 1 tab TID 03/14/19 Cholecalciferol (Vitamin D3) [Vitamin D3] 1,000 unit DAILY 03/14/19 Finasteride 5 mg DAILY 03/14/19 Fludrocortisone Acetate 0.1 mg DAILY 03/14/19 Hydrocortisone 5 mg DAILY 03/14/19 Hydrocortisone 10 mg DAILY 03/14/19 Levothyroxine [Synthroid -] 75 mcg DAILY 03/14/19 Polyethylene Glycol 3350 17 gm DAILY 03/14/19 Rosuvastatin [Crestor -] 40 mg DAILY 03/14/19 Testosterone Cypionate 200 vial ASDIR 03/14/19 Ubidecarenone [Co Q-10] 30 mg DAILY 03/14/19 Review of Systems - Review of Systems Constitutional: reports: Lethargy, Weakness Eyes: reports: No Symptoms HENT: reports: No Symptoms Neck: reports: No Symptoms Cardiovascular: reports: Shortness of Breath Respiratory: reports: Exercise Intolerance Gastrointestinal: reports: Diarrhea Genitourinary: reports: No Symptoms Breasts: reports: No Symptoms Reported Musculoskeletal: reports: Muscle Weakness Endocrine: reports: Unexplained Weight Loss Physical Exam Vital Signs: Vital Signs Temperature 98.1 F 03/16/19 18:00 Pulse Rate 80 03/16/19 18:00 Respiratory Rate 20 03/16/19 18:00 Blood Pressure 121/80 03/16/19 18:00 O2 Sat by Pulse Oximetry (%) 95 03/16/19 09:00 Constitutional: Yes: Calm Eyes: Yes: EOM Intact HENT: Yes: Normocephalic Neck: Yes: Trachea Midline Cardiovascular: Yes: Regular Rate and Rhythm, Other Respiratory: Yes: CTA Bilaterally Gastrointestinal: Yes: Hyperactive Bowel Sounds ...Rectal Exam: Yes: Deferred Renal/: Yes: WNL Musculoskeletal: Yes: Muscle Weakness Edema: No Neurological: Yes: Alert, Confusion Labs: CBC, BMP 03/16/19 06:31 03/16/19 18:25 Problem List - Problems (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 Problems reviewed: Yes Code(s): E89.3 - POSTPROCEDURAL HYPOPITUITARISM (2) Hypokalemia Problems reviewed: Yes Code(s): E87.6 - HYPOKALEMIA (3) Central hypothyroidism Problems reviewed: Yes Code(s): E03.8 - OTHER SPECIFIED HYPOTHYROIDISM Assessment/Plan Current Active Problems Altered mental status (Acute) Falls frequently (Acute) Hypokalemia (Acute) HYPOTHYROIDISM HYPOPITUITARY ADRENAL DEFICIENCY Abnormal Lab Results 03/16/19 03/16/19 03/16/19 00:45 06:31 06:31 RBC 3.52 L Hgb 10.6 L Hct 30.6 L MPV 7.4 L Sodium 146 H 147 H Potassium 3.2 L 2.8 L* Chloride 111 H 111 H BUN 18.5 H 18.4 H Creatinine 2.9 H 3.0 H Random Glucose 64 L 50 L Calcium 7.2 L 7.1 L ALT 6 L Total Protein 4.8 L Albumin 2.0 L 03/16/19 03/16/19 15:35 18:25 RBC Hgb Hct MPV Sodium Potassium Chloride BUN 18.2 H Creatinine 3.0 H 3.0 H Random Glucose 122 H 145 H Calcium 6.8 L* 6.8 L* ALT Total Protein Albumin 2.1 L 2.3 L PLAN: USE IV SOLUCORTEF 100MG TID PO SYNTHROID DC PROSCAR DC AMLODIPINE GI CONSULT FOR DIARHEA CK ACTH,CORTISOL REPLACE MG,K,
[2019-03-16] MEDS ORDERED: ROSUVASTATIN CA 10 MG TABLET (FP) PO SCH (22:00)
--- NOTE | 2019-03-16 23:13 | EKG ---
Test Reason : Blood Pressure : / mmHG Vent. Rate : 085 BPM Atrial Rate : 085 BPM P-R Int : 176 ms QRS Dur : 102 ms QT Int : 400 ms P-R-T Axes : 013 -16 -15 degrees QTc Int : 476 ms SINUS RHYTHM WITH PREMATURE ATRIAL COMPLEXES NONSPECIFIC ST ABNORMALITY ABNORMAL ECG WHEN COMPARED WITH ECG OF 15-MAR-2019 05:24, PREMATURE ATRIAL COMPLEXES ARE NOW PRESENT Confirmed by MARY HUANG, FIOR ([id number]) on 03/16/2019 11:12:52 PM Referred By: Confirmed By:FIOR HERNANDEZ MD
[2019-03-17 01:36] LABS: BLOOD UREA NITROGEN 17.6 mg/dL (7-18); POTASSIUM 4.7 mmol/L (3.5-5.1)
[2019-03-17] MEDS ORDERED: PT OWN MED DRAWER 7, Y5N ONE ×5 (06:10→16:58)
[2019-03-17] MEDS: HYDROCORTISONE SOD SUCCINATE 100 MG/2 ML VIAL IVPUSH SCH ×3 (06:23→21:19)
[2019-03-17] MEDS: HEPARIN NA (PORCINE) 5,000 UNITS/ML 1ML VIAL SQ SCH ×3 (06:23→21:19)
[2019-03-17] MEDS: LEVOTHYROXINE NA 50 MCG TABLET (FP) PO SCH (06:24)
[2019-03-17 06:30] LABS: BASO % 0.3 % (0-2.0); HEMATOCRIT 34.8 % (35.4-49); HEMOGLOBIN 11.8 GM/dL (11.7-16.9); LYMPH % 5.2 % (8-40); MCH 29.4 pg (25.7-33.7); MCHC 33.9 g/dl (32.0-35.9); MEAN CELL VOLUME 86.7 fl (80-96); MEAN PLT VOLUME 7.1 fl (7.5-11.1); MONO % 1.9 % (3.8-10.2); NEUT % 92.6 % (42.8-82.8); PLATELET COUNT 213 K/MM3 (134-434); RBC 4.02 M/mm3 (4.00-5.60); RDW 15.6 % (11.9-15.9); WHITE BLOOD COUNT 10.1 K/mm3 (4.0-10.0)
[2019-03-17 07:06] LABS: ALBUMIN 2.2 g/dl (3.4-5.0); BILIRUBIN,TOTAL 0.5 mg/dL (0.2-1); BLOOD UREA NITROGEN 18.8 mg/dL (7-18); CALCIUM 7.2 mg/dL (8.5-10.1); CREATININE 3.1 mg/dL (0.55-1.3); POTASSIUM 4.3 mmol/L (3.5-5.1); TOT PROT 5.7 g/dl (6.4-8.2)
--- NOTE | 2019-03-17 07:47 | CON.GI ---
Consult - History of Present Illness History of Present Illness: GI CONSULT DICTATED - Alcohol/Substance Use Hx Alcohol Use: No - Smoking History Smoking history: Former smoker Have you smoked in the past 12 months: Yes If you are a former smoker, when did you quit?: 1966 Home Medications - Allergies Allergies/Adverse Reactions: Allergies Allergy/AdvReac Type Severity Reaction Status Date / Time No Known Allergies Allergy Verified 03/14/19 13:34 - Home Medications Home Medications: Ambulatory Orders Amlodipine Besylate 5 mg DAILY 03/14/19 Aspirin 81 mg DAILY 03/14/19 Carbidopa/Levodopa [Carbidopa-Levo ER 50-200 Tab] 1 tab TID 03/14/19 Cholecalciferol (Vitamin D3) [Vitamin D3] 1,000 unit DAILY 03/14/19 Finasteride 5 mg DAILY 03/14/19 Fludrocortisone Acetate 0.1 mg DAILY 03/14/19 Hydrocortisone 5 mg DAILY 03/14/19 Hydrocortisone 10 mg DAILY 03/14/19 Levothyroxine [Synthroid -] 75 mcg DAILY 03/14/19 Polyethylene Glycol 3350 17 gm DAILY 03/14/19 Rosuvastatin [Crestor -] 40 mg DAILY 03/14/19 Testosterone Cypionate 200 vial ASDIR 03/14/19 Ubidecarenone [Co Q-10] 30 mg DAILY 03/14/19 Physical Exam-GI Vital Signs: Vital Signs Temperature 98.0 F 03/17/19 05:58 Pulse Rate 64 03/17/19 05:58 Respiratory Rate 18 03/17/19 05:58 Blood Pressure 133/73 03/17/19 05:58 O2 Sat by Pulse Oximetry (%) 97 03/16/19 21:00 Labs: CBC, BMP 03/17/19 06:05 03/17/19 06:05 INR, PTT INR 1.18 (0.83-1.09) H 03/14/19 15:00
[2019-03-17] MEDS ORDERED: HYDROCORTISONE 10 MG TABLET PO SCH (09:00)
[2019-03-17] MEDS: CALCIUM (OYSTER SHELL) 500 MG TABLET (FP) PO SCH ×2 (09:39→21:19)
[2019-03-17] MEDS: CHOLECALCIFEROL (VIT D3) 1,000 UNIT (25 MCG) TABLET PO SCH (09:39)
[2019-03-17] MEDS: ASPIRIN 81 MG CHEWABLE TABLETS PO SCH (09:40)
[2019-03-17 09:59] LABS: ANISOCYTOSIS 1+; MACROCYTOSIS 0; PLATELET ESTIMATE NORMAL
--- NOTE | 2019-03-17 10:00 | CON.CARD ---
Consult Consult Specialty:: Cardiology Referred by:: Dr. Blanc Reason for Consultation:: Low blood pressure - History of Present Illness Chief Complaint: Falls History of Present Illness: 79 M Resolving Hypokalemia Virginie Figueroa Parkinson's disease CAD (s/p quadruple bypass) Pituitary tumor (s/p resection 1997) Hypothyroidism AMS Falls Presented with one week of AMS, decrease of appetite, diarrhea, frequent falls , sent by Dr. Forrester for evaluation. Patient and daughter at bedside. Was recently hospitalized for falls and trauma. 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 Denies CP, SOB, palps. 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 Cardio/Vascular: Yes: CAD, Other (s/p CABG) Pulmonary: No: Asthma, Bronchitis, Cancer, COPD, O2 Dependent, Pneumonia, Previously Intubated, Pulmonary Embolus, Pulmonary Fibrosis, Sleep Apnea, Other Gastrointestinal: No: Ascites, Cancer, Constipation, Crohn's Disease, Diverticulitis, Diverticulosis, Esophageal Varices, Gastritis, GERD, GI Bleed, Hemorrhoids, Hiatal Hernia, Inflamatory Bowel Disease, Irritable Bowel Disease, Pancreatitis, Peptic Ulcer Disease, Ulcerative Colitis, Other Hepatobiliary: No: Cirrhosis, Cholelithiasis, Cholecystitis, Choledocholithiasis , Hepatitis A, Hepatitis B, Hepatitis C, Other Renal/: No: Renal Failure, Renal Inusuff, BPH, Cancer, Hematuria, Hemodialysis , Neurogenic Bladder, Renal Calculi, UTI, Other Heme/Onc: No: Anemia, B12 Deficiency, Bleeding Disorder, Cancer, Current Chemotherapy, Current Radiation Therapy, Hemochromatosis, Hypercoaguable State, Myeloproliferative Synd, Sickle Cell Disease, Sickle Cell Trait, Thrombocytopenia, Other Infectious Disease: No: AIDS, C-Diff, Herpes Zoster, HIV, MRSA, STD's, Tuberculosis, VREF, Other Endocrine: Yes: Other (Hypopit) - Past Surgical History Past Surgical History: Yes: CABG - Alcohol/Substance Use Hx Alcohol Use: No - Smoking History Smoking history: Former smoker Have you smoked in the past 12 months: Yes If you are a former smoker, when did you quit?: 1967 - Social History Usual Living Arrangement: With Spouse History of Recent Travel: No Home Medications - Allergies Allergies/Adverse Reactions: Allergies Allergy/AdvReac Type Severity Reaction Status Date / Time No Known Allergies Allergy Verified 03/14/19 13:34 - Home Medications Home Medications: Ambulatory Orders Amlodipine Besylate 5 mg DAILY 03/14/19 Aspirin 81 mg DAILY 03/14/19 Carbidopa/Levodopa [Carbidopa-Levo ER 50-200 Tab] 1 tab TID 03/14/19 Cholecalciferol (Vitamin D3) [Vitamin D3] 1,000 unit DAILY 03/14/19 Finasteride 5 mg DAILY 03/14/19 Fludrocortisone Acetate 0.1 mg DAILY 03/14/19 Hydrocortisone 5 mg DAILY 03/14/19 Hydrocortisone 10 mg DAILY 03/14/19 Levothyroxine [Synthroid -] 75 mcg DAILY 03/14/19 Polyethylene Glycol 3350 17 gm DAILY 03/14/19 Rosuvastatin [Crestor -] 40 mg DAILY 03/14/19 Testosterone Cypionate 200 vial ASDIR 03/14/19 Ubidecarenone [Co Q-10] 30 mg DAILY 03/14/19 Family Medical History Family History: Unremarkable Review of Systems - Review of Systems Constitutional: reports: No Symptoms Eyes: reports: No Symptoms HENT: reports: No Symptoms Neck: reports: No Symptoms Cardiovascular: reports: No Symptoms Respiratory: reports: No Symptoms Gastrointestinal: reports: No Symptoms Genitourinary: reports: No Symptoms Breasts: reports: No Symptoms Reported Musculoskeletal: reports: No Symptoms Integumentary: reports: No Symptoms Neurological: reports: Unsteady Gait, Other (falls) - Risk Factors Known Risk Factors: Yes: Other (known CAD) Vital Signs: Vital Signs Temperature 98.0 F 03/17/19 05:58 Pulse Rate 64 03/17/19 05:58 Respiratory Rate 18 03/17/19 05:58 Blood Pressure 133/73 03/17/19 05:58 O2 Sat by Pulse Oximetry (%) 97 03/16/19 21:00 Constitutional: Yes: No Distress Neck: Yes: Other (no bruits) Respiratory: Yes: CTA Bilaterally Gastrointestinal: Yes: Soft Cardiovascular: Yes: Regular Rate and Rhythm JVD: No Carotid Bruit: No PMI: Non-Displaced Heart Sounds: Yes: S1, S2 (MEDIAN STERNOTOMY) Edema: No Peripheral Pulses WNL: Yes Neurological: Yes: Alert, Tremors, Unsteady Gait - Other Data Labs, Other Data: CBC, BMP 03/17/19 06:05 03/17/19 06:05 INR, PTT INR 1.18 (0.83-1.09) H 03/14/19 15:00 Laboratory Tests 03/14/19 03/15/19 03/16/19 15:00 11:10 06:31 WBC Hgb Plt Count INR 1.18 H Sodium Potassium 2.8 L* Creatinine Opiates Screen Negative Methadone Screen Negative Barbiturate Screen Negative Phencyclidine Screen Negative Ur Amphetamines Screen Negative MDMA (Ecstasy) Screen Negative Benzodiazepines Screen Negative Cocaine Screen Negative U Marijuana (THC) Screen Negative 03/17/19 03/17/19 06:05 06:05 WBC 10.1 H Hgb 11.8 Plt Count 213 INR Sodium 142 Potassium 4.3 Creatinine 3.1 H Opiates Screen Methadone Screen Barbiturate Screen Phencyclidine Screen Ur Amphetamines Screen MDMA (Ecstasy) Screen Benzodiazepines Screen Cocaine Screen U Marijuana (THC) Screen NSR 73, poor R wave progression, NSST Echo: Report Reviewed Prior Cardiac Procedures: CABG Ejection Fraction %: LVEF > or = 40 % Assessment/Plan IMP: Resolving Hypokalemia Acute on chronic renal failure Virginie salcedo Parkinson's disease CAD (s/p quadruple bypass) Pituitary tumor (s/p resection 1997) Hypothyroidism AMS Diarrhea Falls REC: 1. Continued adjustment/regulation of steroids as per Endo 2. Renal following: K+ improved. Cont close monitoring of renal fx and electrolytes. 3. Agree with holding Amlodipine. Vasodilatory effect may contribute to orthostatic BP changes leading to falls. Patient has underlying PD with autonomic dysfx on that basis. Thus would minimize use of any vasodilatory meds that are not required. 4. CAD chronic/stable with recent echo showing normal LVEF and no sig valve disease. No arrhythmias on tele to explain falls. Pt is followed closely by outside senior water resources engineer at [facility]. 5. Further w/u of diarrhea as per primary team and GI.
--- NOTE | 2019-03-17 12:58 | PN ---
Progress Note (short form) - Note Progress Note: Resting in NAD. Feels better. No acute events overnight. Intake & Output 03/14/19 03/15/19 03/16/19 03/17/19 23:59 23:59 23:59 23:59 Intake Total 1020 4555 370 Balance 1020 4555 370 Weight 178 lb 178 lb Last Vital Signs Temp Pulse Resp BP Pulse Ox 97.4 F L 77 18 108/67 98 03/17/19 10:00 03/17/19 10:00 03/17/19 10:00 03/17/19 10:00 03/17/19 09:00 Active Medications Amlodipine Besylate (Norvasc -) 5 mg PO DAILY [facility] Last Admin: 03/16/19 09:30 Dose: Not Given Aspirin (Asa -) 81 mg PO DAILY [facility] Last Admin: 03/17/19 09:40 Dose: 81 mg Calcium Carbonate (Os-Gerard 500mg -) 500 mg PO BID [facility] Last Admin: 03/17/19 09:39 Dose: 500 mg Carbidopa/Levodopa (Sinemet *Cr* 50/200 -) 1 combo PO 0700,1200,1700 [facility] Last Admin: 03/17/19 12:10 Dose: 1 combo Cholecalciferol (Vitamin D3 -) 1,000 unit PO DAILY [facility] Last Admin: 03/17/19 09:39 Dose: 1,000 unit Heparin Sodium (Porcine) (Heparin -) 5,000 unit SQ TID [facility] Last Admin: 03/17/19 06:23 Dose: 5,000 unit Hydrocortisone Sodium Succinate (Solu-Cortef -) 100 mg IVPUSH TID [facility] Last Admin: 03/17/19 06:23 Dose: 100 mg Levothyroxine Sodium (Synthroid -) 50 mcg PO DAILY@0700 [facility] Last Admin: 03/17/19 06:24 Dose: 50 mcg Quetiapine Fumarate (Seroquel -) 12.5 mg PO DAILY PRN PRN Reason: AGITATION GENERAL: Awake, alert, no acute distress. HEAD: Normal with no signs of trauma. EYES: sclera anicteric, conjunctiva clear. No lid lag. EARS, NOSE, THROAT: Ears normal, nares patent, oropharynx clear without exudates. Moist mucous membranes. NECK: Normal range of motion, supple without lymphadenopathy, JVD, or masses. LUNGS: Breath sounds equal, clear to auscultation bilaterally. No wheezes, and no crackles. No accessory muscle use. HEART: Regular rate and rhythm, normal S1 and S2 without murmur, rub or gallop. ABDOMEN: Soft, nontender, not distended, normoactive bowel sounds, no guarding, no rebound, no masses. No hepatomegaly or splenomegaly. MUSCULOSKELETAL: Normal range of motion at all joints. No bony deformities or tenderness. No CVA tenderness. UPPER EXTREMITIES: 2+ pulses, warm, well-perfused. No cyanosis. No clubbing. Cap refill <2 seconds. No peripheral edema. LOWER EXTREMITIES: 2+ pulses, warm, well-perfused. No calf tenderness. No peripheral edema. NEUROLOGICAL: Non-focal PSYCHIATRIC: Cooperative. Good eye contact. Appropriate mood and affect. SKIN: Warm, dry, normal turgor, no rashes or lesions noted. Laboratory Results - last 24 hr 03/16/19 03/16/19 03/16/19 06:31 15:35 18:25 WBC RBC Hgb Hct MCV MCH MCHC RDW Plt Count MPV Absolute Neuts (auto) Neutrophils % Neutrophils % (Manual) Band Neutrophils % Lymphocytes % Lymphocytes % (Manual) Monocytes % Monocytes % (Manual) Eosinophils % Eosinophils % (Manual) Basophils % Basophils % (Manual) Myelocytes % (Man) Promyelocytes % (Man) Blast Cells % (Manual) Nucleated RBC % Metamyelocytes Hypochromia Platelet Estimate Polychromasia Poikilocytosis Anisocytosis Microcytosis Macrocytosis Sodium 142 140 Potassium 4.0 4.7 Chloride 107 106 Carbon Dioxide 27 26 Anion Gap 8 8 BUN 18.2 H 17.2 Creatinine 3.0 H 3.0 H Est GFR (CKD-EPI)AfAm 22.04 22.04 Est GFR (CKD-EPI)NonAf 19.02 19.02 Random Glucose 122 H 145 H Calcium 6.8 L* 6.8 L* Phosphorus 4.2 3.5 Magnesium 1.8 2.4 Total Bilirubin AST ALT Alkaline Phosphatase Creatine Kinase Creatine Kinase Index CK-MB (CK-2) Total Protein Albumin 2.1 L 2.3 L RPR Titer Nonreactive 03/17/19 03/17/19 03/17/19 01:03 06:05 06:05 WBC 10.1 H RBC 4.02 Hgb 11.8 Hct 34.8 L MCV 86.7 MCH 29.4 MCHC 33.9 RDW 15.6 Plt Count 213 MPV 7.1 L Absolute Neuts (auto) 9.3 H Neutrophils % 92.6 H D Neutrophils % (Manual) 88.9 H Band Neutrophils % 1.0 Lymphocytes % 5.2 L D Lymphocytes % (Manual) 6.1 L Monocytes % 1.9 L Monocytes % (Manual) 4 Eosinophils % 0.0 D Eosinophils % (Manual) 0.0 Basophils % 0.3 Basophils % (Manual) 0.0 Myelocytes % (Man) 0 Promyelocytes % (Man) 0 Blast Cells % (Manual) 0 Nucleated RBC % 0 Metamyelocytes 0 Hypochromia 0 Platelet Estimate Normal Polychromasia 0 Poikilocytosis 1+ Anisocytosis 1+ Microcytosis 1+ Macrocytosis 0 Sodium 141 Potassium 4.7 Chloride 107 Carbon Dioxide 27 Anion Gap 7 L BUN 17.6 Creatinine 3.0 H Est GFR (CKD-EPI)AfAm 22.04 Est GFR (CKD-EPI)NonAf 19.02 Random Glucose 162 H Calcium 7.0 L Phosphorus Magnesium 2.2 Total Bilirubin AST ALT Alkaline Phosphatase Creatine Kinase Creatine Kinase Index CK-MB (CK-2) Total Protein Albumin RPR Titer 03/17/19 06:05 WBC RBC Hgb Hct MCV MCH MCHC RDW Plt Count MPV Absolute Neuts (auto) Neutrophils % Neutrophils % (Manual) Band Neutrophils % Lymphocytes % Lymphocytes % (Manual) Monocytes % Monocytes % (Manual) Eosinophils % Eosinophils % (Manual) Basophils % Basophils % (Manual) Myelocytes % (Man) Promyelocytes % (Man) Blast Cells % (Manual) Nucleated RBC % Metamyelocytes Hypochromia Platelet Estimate Polychromasia Poikilocytosis Anisocytosis Microcytosis Macrocytosis Sodium 142 Potassium 4.3 Chloride 108 H Carbon Dioxide 26 Anion Gap 8 BUN 18.8 H Creatinine 3.1 H Est GFR (CKD-EPI)AfAm 21.18 Est GFR (CKD-EPI)NonAf 18.28 Random Glucose 126 H Calcium 7.2 L Phosphorus Magnesium Total Bilirubin 0.5 AST 40 H ALT 7 L Alkaline Phosphatase 122 H Creatine Kinase 220 Creatine Kinase Index 1.4 CK-MB (CK-2) 3.1 Total Protein 5.7 L Albumin 2.2 L RPR Titer ASSESSMENT/PLAN: Resolving Hypokalemia Shy Macyers Parkinson's disease CAD (s/p quadruple bypass) Pituitary tumor (s/p resection 1997) Hypothyroidism AMS Falls Replete lytes PRN O2 as needed Continue home meds PO as tolerated Cardiac Telemetry monitoring Dr Hernandez
--- NOTE | 2019-03-17 13:29 | PN ---
Progress Note (short form) - Note Progress Note: SUBJECTIVE: No complaints. No headache/visual disturbance/limb numbness or weakness. No chest pain/palpitations/lightheadedness. Last BM yesterday, loose. No further BMs. No abdominal pain, tolerating oral intake. OBJECTIVE: Afebrile, Hemodynamically Stable. Last Vital Signs Temp Pulse Resp BP Pulse Ox 97.4 F L 77 18 108/67 98 03/17/19 10:00 03/17/19 10:00 03/17/19 10:00 03/17/19 10:00 03/17/19 09:00 Heart - S1 S2, RRR Lungs - clear to auscultation Abdomen - Soft, non-tender. Bowel Sounds normal. Extremtiies - bruised upper extremities, LE edema + Neuro - AAO x 3. Tone/Power normal. Laboratory Results - last 24 hr 03/16/19 03/16/19 03/16/19 06:31 15:35 18:25 WBC RBC Hgb Hct MCV MCH MCHC RDW Plt Count MPV Absolute Neuts (auto) Neutrophils % Neutrophils % (Manual) Band Neutrophils % Lymphocytes % Lymphocytes % (Manual) Monocytes % Monocytes % (Manual) Eosinophils % Eosinophils % (Manual) Basophils % Basophils % (Manual) Myelocytes % (Man) Promyelocytes % (Man) Blast Cells % (Manual) Nucleated RBC % Metamyelocytes Hypochromia Platelet Estimate Polychromasia Poikilocytosis Anisocytosis Microcytosis Macrocytosis Sodium 142 140 Potassium 4.0 4.7 Chloride 107 106 Carbon Dioxide 27 26 Anion Gap 8 8 BUN 18.2 H 17.2 Creatinine 3.0 H 3.0 H Est GFR (CKD-EPI)AfAm 22.04 22.04 Est GFR (CKD-EPI)NonAf 19.02 19.02 Random Glucose 122 H 145 H Calcium 6.8 L* 6.8 L* Phosphorus 4.2 3.5 Magnesium 1.8 2.4 Total Bilirubin AST ALT Alkaline Phosphatase Creatine Kinase Creatine Kinase Index CK-MB (CK-2) Total Protein Albumin 2.1 L 2.3 L RPR Titer Nonreactive 03/17/19 03/17/19 03/17/19 01:03 06:05 06:05 WBC 10.1 H RBC 4.02 Hgb 11.8 Hct 34.8 L MCV 86.7 MCH 29.4 MCHC 33.9 RDW 15.6 Plt Count 213 MPV 7.1 L Absolute Neuts (auto) 9.3 H Neutrophils % 92.6 H D Neutrophils % (Manual) 88.9 H Band Neutrophils % 1.0 Lymphocytes % 5.2 L D Lymphocytes % (Manual) 6.1 L Monocytes % 1.9 L Monocytes % (Manual) 4 Eosinophils % 0.0 D Eosinophils % (Manual) 0.0 Basophils % 0.3 Basophils % (Manual) 0.0 Myelocytes % (Man) 0 Promyelocytes % (Man) 0 Blast Cells % (Manual) 0 Nucleated RBC % 0 Metamyelocytes 0 Hypochromia 0 Platelet Estimate Normal Polychromasia 0 Poikilocytosis 1+ Anisocytosis 1+ Microcytosis 1+ Macrocytosis 0 Sodium 141 Potassium 4.7 Chloride 107 Carbon Dioxide 27 Anion Gap 7 L BUN 17.6 Creatinine 3.0 H Est GFR (CKD-EPI)AfAm 22.04 Est GFR (CKD-EPI)NonAf 19.02 Random Glucose 162 H Calcium 7.0 L Phosphorus Magnesium 2.2 Total Bilirubin AST ALT Alkaline Phosphatase Creatine Kinase Creatine Kinase Index CK-MB (CK-2) Total Protein Albumin RPR Titer 03/17/19 06:05 WBC RBC Hgb Hct MCV MCH MCHC RDW Plt Count MPV Absolute Neuts (auto) Neutrophils % Neutrophils % (Manual) Band Neutrophils % Lymphocytes % Lymphocytes % (Manual) Monocytes % Monocytes % (Manual) Eosinophils % Eosinophils % (Manual) Basophils % Basophils % (Manual) Myelocytes % (Man) Promyelocytes % (Man) Blast Cells % (Manual) Nucleated RBC % Metamyelocytes Hypochromia Platelet Estimate Polychromasia Poikilocytosis Anisocytosis Microcytosis Macrocytosis Sodium 142 Potassium 4.3 Chloride 108 H Carbon Dioxide 26 Anion Gap 8 BUN 18.8 H Creatinine 3.1 H Est GFR (CKD-EPI)AfAm 21.18 Est GFR (CKD-EPI)NonAf 18.28 Random Glucose 126 H Calcium 7.2 L Phosphorus Magnesium Total Bilirubin 0.5 AST 40 H ALT 7 L Alkaline Phosphatase 122 H Creatine Kinase 220 Creatine Kinase Index 1.4 CK-MB (CK-2) 3.1 Total Protein 5.7 L Albumin 2.2 L RPR Titer Current Medications Generic Name Dose Route Start Last Admin Trade Name Freq PRN Reason Stop Dose Admin Amlodipine Besylate 5 mg 03/16/19 10:00 03/16/19 09:30 Norvasc - PO Not Given DAILY [facility] Aspirin 81 mg 03/16/19 10:00 03/17/19 09:40 Asa - PO 81 mg DAILY [facility] Administration Calcium Carbonate 500 mg 03/17/19 10:00 03/17/19 09:39 Os-Gerard 500mg - PO 500 mg BID [facility] Administration Carbidopa/Levodopa 1 combo 03/16/19 07:00 03/17/19 12:10 Sinemet *Cr* 50/200 - PO 1 combo 0700,1200,1700 [facility] Administration Cholecalciferol 1,000 unit 03/16/19 10:00 03/17/19 09:39 Vitamin D3 - PO 1,000 unit DAILY [facility] Administration Heparin Sodium (Porcine) 5,000 unit 03/16/19 14:00 03/17/19 06:23 Heparin - SQ 5,000 unit TID [facility] Administration Hydrocortisone Sodium Succinate 100 mg 03/16/19 15:15 03/17/19 06:23 Solu-Cortef - IVPUSH 100 mg TID [facility] Administration Levothyroxine Sodium 50 mcg 03/17/19 07:00 03/17/19 06:24 Synthroid - PO 50 mcg DAILY@0700 [facility] Administration Quetiapine Fumarate 12.5 mg 03/16/19 17:27 Seroquel - PO DAILY PRN AGITATION Home Medications Medication Instructions Recorded Amlodipine Besylate 5 mg DAILY 03/14/19 Aspirin 81 mg DAILY 03/14/19 Carbidopa/Levodopa [Carbidopa-Levo 1 tab TID 03/14/19 ER 50-200 Tab] Cholecalciferol (Vitamin D3) 1,000 unit DAILY 03/14/19 [Vitamin D3] Finasteride 5 mg DAILY 03/14/19 Fludrocortisone Acetate 0.1 mg DAILY 03/14/19 Hydrocortisone 5 mg DAILY 03/14/19 Hydrocortisone 10 mg DAILY 03/14/19 Levothyroxine [Synthroid -] 75 mcg DAILY 03/14/19 Polyethylene Glycol 3350 17 gm DAILY 03/14/19 Rosuvastatin [Crestor -] 40 mg DAILY 03/14/19 Testosterone Cypionate 200 vial ASDIR 03/14/19 Ubidecarenone [Co Q-10] 30 mg DAILY 03/14/19 ASSESSMENT AND PLAN: 79 year old male with history of Parkinson Disease/Shy Drager Syndrome, Pituitary tumor (s/p resection), coronary artery disease (s/p CABG x4 vessels), hypothyroidism, HLD, HTN, BPH, presents with recurrent falls, poor oral intake, loose stool, and altered mental status. He was found to have severe electrolyte abnormalities including K 2.2 1. Acute Metabolic Encephalopathy likely sec to dehydration due to poor oral intake and reported diarrhea - resolved. AAO x [address] Brain negative for acute findings. Neurology consulted and recommend Quetiapine 12.5-25 mg QHS PRN for agitation/ sundowning. 2. Ambulatory Dysfunction/Falls - sec to above CT Head/C-Spine negative for acute findings. Echo - normal. PT eval Anthony eval appreciated for PD/Shy Drager's - recommend continuing Carbidopa/ Levodopa. 3. Severe Hypokalemia - sec to poor oral intake, GI losses, Florinef, Hydrocortizone (for Adrenal dysfunction s/p Hx pituitary tumor resection) Resolved - Oral and IV repletion PRN On fludrocortizone and Hydrocotizone s/p pituitary tumor resection - held as per Endocrinology in favor of IV Solucortef. Monitor K 4. PO on CKD - Creat continues to climb. Hydration stopped 03/16 due to edema on recommendation of Nephrology. Renal US - no obstruction Nephrology following. 5. Diarrhea - last BM 03/16. Cdiff/Stool Cx pending CT A/P - Prostate enlargement, Diverticulosis, bibasilar atelectasis. Will hold Ceftriaxone for now (being given empirically for possible UTI, Urine Cx contaminated, repeat UCx requested). 6. Hypothyrosidism, on Synthroid - TSH low at 0.29. Synthroid dose reduced to 50mcg. Endocrinology consulted. 7. Coronary artery disease (s/p CABG x4 vessels) - continue ASA. Statin held. 8. HLD - on Statin. Held due to mild CPK elevation. 9. HTN - Norvasc held due to peripheral vasodilatory effect and possible contribution to orthostasis/syncope/falls. 10. BPH - normally on Proscar - held by Endocrinology. DVT Px - Heparin SQ Visit type - Emergency Visit Emergency Visit: Yes ED Registration Date: 03/14/19 Care time: The patient presented to the Emergency Department on the above date and was hospitalized for further evaluation of their emergent condition. - New Patient This patient is new to me today: No - Critical Care Critical Care patient: No - Discharge Referral Referred to [facility] No
--- NOTE | 2019-03-17 14:34 | PN ---
Progress Note (short form) - Note Progress Note: RENAL Pt awake and alert comfortable denies complaints Last Vital Signs Temp Pulse Resp BP Pulse Ox 98.2 F 84 18 122/71 98 03/17/19 14:00 03/17/19 14:00 03/17/19 14:00 03/17/19 14:00 03/17/19 09:00 lungs clear anteriorly cvs s1s2 rr abd soft ext +edema neuro a+o CBC, BMP 03/17/19 06:05 03/17/19 06:05 Current Medications Generic Name Dose Route Start Last Admin Trade Name Dionicio PRN Reason Stop Dose Admin Aspirin 81 mg 03/16/19 10:00 03/17/19 09:40 Asa - PO 81 mg DAILY [facility] Administration Calcium Carbonate 500 mg 03/17/19 10:00 03/17/19 09:39 Os-Gerard 500mg - PO 500 mg BID [facility] Administration Carbidopa/Levodopa 1 combo 03/16/19 07:00 03/17/19 12:10 Sinemet *Cr* 50/200 - PO 1 combo 0700,1200,1700 [facility] Administration Cholecalciferol 1,000 unit 03/16/19 10:00 03/17/19 09:39 Vitamin D3 - PO 1,000 unit DAILY [facility] Administration Heparin Sodium (Porcine) 5,000 unit 03/16/19 14:00 03/17/19 13:32 Heparin - SQ 5,000 unit TID [facility] Administration Hydrocortisone Sodium Succinate 100 mg 03/16/19 15:15 03/17/19 13:32 Solu-Cortef - IVPUSH 100 mg TID [facility] Administration Levothyroxine Sodium 50 mcg 03/17/19 07:00 03/17/19 06:24 Synthroid - PO 50 mcg DAILY@0700 [facility] Administration Quetiapine Fumarate 12.5 mg 03/16/19 17:27 Seroquel - PO DAILY PRN AGITATION Impression 1. PO 2. hypokalemia in part from steroids- better 3. s/p pituitary tumor resection 4. cad 5 becoming edematous Plan k has improved. Would keep off florinef monitor K If BP acceptable wont need florinef Has a slowly progressive po, would rule out AIN-- check eos MV
--- NOTE | 2019-03-17 20:23 | CONS ---
DATE OF CONSULTATION: DATE OF DICTATION: 03/17/2019 HISTORY OF PRESENT ILLNESS: The patient is a 79-year-old man, past medical history of Parkinson disease, pituitary tumor, status post resection, CAD, bypass surgery, hypothyroidism, who was admitted to the hospital with altered mental status and associated falls. Apparently he had also completed a course of antibiotics for urinary tract infection a month prior to admission and also had some loose stools. He states that his diarrhea resolved since he was admitted to the hospital. He denies any nausea, vomiting, abdominal pain, or blood in the stool or melena. He states his last colonoscopy was done a year or [address] Sosa at [facility]. He has never had an upper endoscopy in the past. PAST MEDICAL AND SURGICAL HISTORY: As listed in the HPI. ALLERGIES: No known drug allergies. SOCIAL HISTORY: Does not drink. Smoked [id number] in the past, quit in 1966. He also used cocaine in the remote past. FAMILY HISTORY: No history of GI or gynecological malignancy. HOME MEDICATIONS: Reviewed. REVIEW OF SYSTEMS: As per the HPI. PHYSICAL EXAMINATION: Vital Signs: Temperature 98, pulse 84, respiratory rate 12, blood pressure 120/71, pulse oximetry 98% on room air. General: No acute distress. HEENT: Anicteric sclerae. Cardiovascular: S1, S2, regular rate and rhythm. Lungs: Bilaterally clear to auscultation. Abdomen: Soft, nontender. Extremities: Without edema. LABORATORY DATA: White blood cell count 10, hemoglobin 11, hematocrit 34, MCV 86, platelet count 213, INR 1.1, sodium 142, potassium 4.3, BUN 18, creatinine 3, glucose 126, calcium 7.2, AST 40, ALT 7, alkaline phosphatase 122, total bilirubin 0.5. Urine: 2+ protein, blood, positive nitrites, and 3+ leukocyte esterase. Stool calprotectin is pending and stool O&P are still pending. Tox screen is negative. RPR nonreactive. Stool for C difficile is negative. Culture from the 7th is also negative. Abdomen and pelvic CT scan was done on the without contrast: Bibasilar atelectasis, enlarged prostate gland with a distended urinary bladder, extensive diverticulosis coli without diverticulitis, no other pathology was noted. IMPRESSION: Episode of acute diarrhea, which at this time has improved. He has not had any bowel movements today. Most likely secondary to underlying infection in the setting of recent antibiotic use. RECOMMENDATION: Low-residue lactose-free diet, follow up stool cultures and studies. Obtain colonoscopy report from his private GI doctor in [place]. If he were to develop further episodes of loose bowel movements, he should have a repeat colonoscopy with random biopsies to exclude microscopic colitis as well as further evaluation for chronic diarrhea. If C difficile is negative and his symptoms recur, cholestyramine daily can be started as well as a probiotic. Further recommendations pending microbiology. DO RAMILA [id number]
[2019-03-18] MEDS ORDERED: PT OWN MED DRAWER 7, Y5N ONE ×5 (06:21→21:29)
[2019-03-18] MEDS: LEVOTHYROXINE NA 50 MCG TABLET (FP) PO SCH (06:39)
[2019-03-18] MEDS: HEPARIN NA (PORCINE) 5,000 UNITS/ML 1ML VIAL SQ SCH ×3 (06:40→21:41)
[2019-03-18] MEDS: HYDROCORTISONE SOD SUCCINATE 100 MG/2 ML VIAL IVPUSH SCH (06:40)
[2019-03-18 08:20] LABS: BASO % 0.1 % (0-2.0); HEMATOCRIT 33.3 % (35.4-49); HEMOGLOBIN 11.1 GM/dL (11.7-16.9); LYMPH % 6.1 % (8-40); MCH 29.2 pg (25.7-33.7); MCHC 33.3 g/dl (32.0-35.9); MEAN CELL VOLUME 87.7 fl (80-96); MEAN PLT VOLUME 7.6 fl (7.5-11.1); MONO % 2.7 % (3.8-10.2); NEUT % 91.1 % (42.8-82.8); PLATELET COUNT 204 K/MM3 (134-434); RDW 15.5 % (11.9-15.9); WHITE BLOOD COUNT 17.6 K/mm3 (4.0-10.0)
[2019-03-18 08:26] LABS: BLOOD UREA NITROGEN 27.6 mg/dL (7-18); CALCIUM 7.6 mg/dL (8.5-10.1); CREATININE 2.9 mg/dL (0.55-1.3); MAGNESIUM 1.9 mg/dL (1.8-2.4); PHOSPHOROUS 3.4 mg/dL (2.5-4.9); POTASSIUM 3.7 mmol/L (3.5-5.1)
[2019-03-18] MEDS ORDERED: MAGNESIUM SULF 50% (8.12 MEQ/2 ML-1 GM VIAL) IVPB ONE (08:45)
[2019-03-18] MEDS: CALCIUM (OYSTER SHELL) 500 MG TABLET (FP) PO SCH ×2 (09:03→21:41)
[2019-03-18] MEDS: CHOLECALCIFEROL (VIT D3) 1,000 UNIT (25 MCG) TABLET PO SCH (09:03)
[2019-03-18] MEDS: ASPIRIN 81 MG CHEWABLE TABLETS PO SCH (09:03)
[2019-03-18] MEDS: POTASSIUM CHLORIDE TABS 20 MEQ TABLET.ER (FP) PO SCH (09:04)
[2019-03-18] MEDS ORDERED: POTASSIUM CHLORIDE TABS 20 MEQ TABLET.ER (FP) PO SCH (10:00)
[2019-03-18 10:49] LABS: ANISOCYTOSIS 1+; MACROCYTOSIS 0; PLATELET ESTIMATE NORMAL
--- NOTE | 2019-03-18 11:19 | PN ---
Progress Note, Physician Chief Complaint: altered MS History of Present Illness: denies cp, sob. legs swollen--says this is chronic from home as well no palp - Current Medication List Current Medications: Active Medications Aspirin (Asa -) 81 mg PO DAILY [facility] Last Admin: 03/18/19 09:03 Dose: 81 mg Calcium Carbonate (Os-Gerard 500mg -) 500 mg PO BID [facility] Last Admin: 03/18/19 09:03 Dose: 500 mg Carbidopa/Levodopa (Sinemet *Cr* 50/200 -) 1 combo PO 0700,1200,1700 [facility] Last Admin: 03/18/19 06:39 Dose: 1 combo Cholecalciferol (Vitamin D3 -) 1,000 unit PO DAILY [facility] Last Admin: 03/18/19 09:03 Dose: 1,000 unit Heparin Sodium (Porcine) (Heparin -) 5,000 unit SQ TID [facility] Last Admin: 03/18/19 06:40 Dose: 5,000 unit Hydrocortisone Sodium Succinate (Solu-Cortef -) 100 mg IVPUSH TID [facility] Last Admin: 03/18/19 06:40 Dose: 100 mg Levothyroxine Sodium (Synthroid -) 50 mcg PO DAILY@0700 [facility] Last Admin: 03/18/19 06:39 Dose: 50 mcg Potassium Chloride (K-Dur -) 20 meq PO DAILY [facility] Last Admin: 03/18/19 09:04 Dose: 20 meq Quetiapine Fumarate (Seroquel -) 12.5 mg PO DAILY PRN PRN Reason: AGITATION - Objective Vital Signs: Vital Signs Temperature 97.5 F L 03/18/19 10:00 Pulse Rate 83 03/18/19 10:00 Respiratory Rate 18 03/18/19 10:00 Blood Pressure 117/67 03/18/19 10:00 O2 Sat by Pulse Oximetry (%) 96 03/17/19 21:00 Constitutional: Yes: Well Nourished, No Distress, Calm Cardiovascular: Yes: Regular Rate and Rhythm, S1, S2. No: Gallop, Murmur Respiratory: Yes: Regular, CTA Bilaterally. No: Accessory Muscle Use, Rales, Wheezes Extremities: No: Cold Edema: Yes (2+ pretib) Neurological: Yes: Alert. No: Seizure Psychiatric: No: Agitated Labs: CBC, BMP 03/18/19 07:50 03/18/19 07:50 INR, PTT INR 1.18 (0.83-1.09) H 03/14/19 15:00 Assessment/Plan tele: NSR IMP: Resolving Hypokalemia Acute on chronic renal failure Virginie salcedo Parkinson's disease CAD (s/p quadruple bypass) Pituitary tumor (s/p resection 1997) Hypothyroidism AMS Diarrhea Falls REC: 1. Continued adjustment/regulation of steroids as per Endo 2. Renal following: K+ improved. bun/creat remain up--per renal team 3. Agree with holding Amlodipine. Vasodilatory effect may contribute to orthostatic BP changes leading to falls. Patient has underlying PD with autonomic dysfx on that basis. Thus would minimize use of any vasodilatory meds that are not required. 4. CAD chronic/stable with recent echo showing normal LVEF and no sig valve disease. No arrhythmias on tele to explain falls. Pt is followed closely by outside manager wholesale at [facility]. 5. Further w/u of diarrhea as per primary team and GI. 6. D/C TELE
--- NOTE | 2019-03-18 13:40 | PN ---
Teaching Attending Note Name of Resident: Wade Cruz ATTENDING PHYSICIAN STATEMENT I saw and evaluated the patient. I reviewed the resident's note and discussed the case with the resident. I agree with the resident's findings and plan as documented with exceptions below. SUBJECTIVE: Patient seen and examined. denies any weakness, dizziness or dyspnea. Chronic leg swelling. Also reports some dysuria. OBJECTIVE: Vital Signs Period Temp Pulse Resp BP Sys/Miguel Pulse Ox Last 24 Hr 97.3 F-98.2 F 76-96 18-18 116-131/44-78 96 Intake & Output 03/15/19 03/16/19 03/17/19 03/18/19 23:59 23:59 23:59 23:59 Intake Total 1020 4555 1390 Balance 1020 4555 1390 Weight 178 lb General: sitting in chair, no acute distress neck: soft, supple Chest: decreased effort, decreased breath sound at bases Abdomen:Soft, obese, NT Extremities: 2+ pedal pitting edema Home Medications Medication Instructions Recorded Amlodipine Besylate 5 mg DAILY 03/14/19 Aspirin 81 mg DAILY 03/14/19 Carbidopa/Levodopa [Carbidopa-Levo 1 tab TID 03/14/19 ER 50-200 Tab] Cholecalciferol (Vitamin D3) 1,000 unit DAILY 03/14/19 [Vitamin D3] Finasteride 5 mg DAILY 03/14/19 Fludrocortisone Acetate 0.1 mg DAILY 03/14/19 Hydrocortisone 5 mg DAILY 03/14/19 Hydrocortisone 10 mg DAILY 03/14/19 Levothyroxine [Synthroid -] 75 mcg DAILY 03/14/19 Polyethylene Glycol 3350 17 gm DAILY 03/14/19 Rosuvastatin [Crestor -] 40 mg DAILY 03/14/19 Testosterone Cypionate 200 vial ASDIR 03/14/19 Ubidecarenone [Co Q-10] 30 mg DAILY 03/14/19 Active Medications Aspirin (Asa -) 81 mg PO DAILY [facility] Last Admin: 03/18/19 09:03 Dose: 81 mg Calcium Carbonate (Os-Gerard 500mg -) 500 mg PO BID [facility] Last Admin: 03/18/19 09:03 Dose: 500 mg Carbidopa/Levodopa (Sinemet *Cr* 50/200 -) 1 combo PO 0700,1200,1700 [facility] Last Admin: 12/09/19 12:02 Dose: 1 combo Cholecalciferol (Vitamin D3 -) 1,000 unit PO DAILY [facility] Last Admin: 03/18/19 09:03 Dose: 1,000 unit Heparin Sodium (Porcine) (Heparin -) 5,000 unit SQ TID [facility] Last Admin: 03/18/19 06:40 Dose: 5,000 unit Hydrocortisone Sodium Succinate (Solu-Cortef -) 100 mg IVPUSH TID [facility] Last Admin: 03/18/19 06:40 Dose: 100 mg Levothyroxine Sodium (Synthroid -) 50 mcg PO DAILY@0700 [facility] Last Admin: 03/18/19 06:39 Dose: 50 mcg Potassium Chloride (K-Dur -) 20 meq PO DAILY [facility] Last Admin: 03/18/19 09:04 Dose: 20 meq Quetiapine Fumarate (Seroquel -) 12.5 mg PO DAILY PRN PRN Reason: AGITATION Laboratory Results - last 24 hr 03/18/19 03/18/19 07:50 07:50 WBC 17.6 H RBC 3.80 L Hgb 11.1 L Hct 33.3 L MCV 87.7 MCH 29.2 MCHC 33.3 RDW 15.5 Plt Count 204 MPV 7.6 Absolute Neuts (auto) 16.0 H Neutrophils % 91.1 H Neutrophils % (Manual) 91.0 H Band Neutrophils % 0.0 Lymphocytes % 6.1 L Lymphocytes % (Manual) 4.0 L D Monocytes % 2.7 L Monocytes % (Manual) 3 L Eosinophils % 0.0 Eosinophils % (Manual) 0.0 Basophils % 0.1 Basophils % (Manual) 0.0 Myelocytes % (Man) 0 Promyelocytes % (Man) 0 Blast Cells % (Manual) 0 Nucleated RBC % 0 Metamyelocytes 0 Hypochromia 0 Platelet Estimate Normal Polychromasia 0 Poikilocytosis 1+ Anisocytosis 1+ Microcytosis 0 Macrocytosis 0 Sodium 140 Potassium 3.7 Chloride 105 Carbon Dioxide 26 Anion Gap 8 BUN 27.6 H Creatinine 2.9 H Est GFR (CKD-EPI)AfAm 22.96 Est GFR (CKD-EPI)NonAf 19.81 Random Glucose 120 H Calcium 7.6 L Phosphorus 3.4 Magnesium 1.9 Microbiology 03/16/19 10:00 Stool Salmonella/Shigella Culture - Final NO GROWTH OF SALMONELLA OR SHIGELLA SPECIES OBTAINED 03/16/19 10:00 Stool Campylobacter Culture - Final NO GROWTH OF CAMPYLOBACTER SPECIES OBTAINED 03/16/19 10:00 Stool Yersinia Culture - Final NO GROWTH OF YERSINIA SPECIES OBTAINED 03/16/19 10:00 Stool Vibrio Culture - Final NO GROWTH OF VIBRIO SPECIES OBTAINED 03/16/19 10:00 Stool Escherichia coli 0157 Culture - Final NO GROWTH OF E COLI 0157 OBTAINED 03/16/19 10:00 Stool Clostridioides difficile Antigen - Final 03/16/19 10:00 Stool Clostridioides difficile Toxin Assay - Final 03/15/19 11:10 Urine - Urine Clean Catch Urine Culture - Final Contaminated: Please Repeat Telemetry: sinus caroline, no acute events. ASSESSMENT AND PLAN: 79 year old male with history of Parkinson Disease/Shy Drager Syndrome, Pituitary tumor (s/p resection), coronary artery disease (s/p CABG x4 vessels), hypothyroidism, HLD, HTN, BPH, presents with recurrent falls, poor oral intake, loose stool, and altered mental status. 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 Cardiology input noted. K improved place on standing suppl d/c telemetry. Hold amlodipine given suspected autonomic dysfunction from underlying parkinson' s disease, with recurrent falls. Endocrine input noted. Discuss hydrocortisone taper. Resume testosteroine. Levothyroxine decreased. Outpatient Thyroid function tests in 4-6 weeks. renal input noted. Pedal edema. Florinef on hold. Likely dc on discharge. Diarrhea could be from hyperthyroidism/endocrine abnormalities. No active issues, GI input noted, stool studies neg. Monitor for now. Neuro eval noted. continue sinemet. Seroquel prn for agitation/sundowning. repeat urine studies. Hold off on abx for now. Continue ASA. Statin held. Trend CPK Proscar held by endocrine. DVTPPX heparin PT eval noted Dispo d/c home services in 24 hours pending endocrine input and no new concerns. Plan discussed with patient.
--- NOTE | 2019-03-18 15:18 | PN ---
Progress Note, Physician History of Present Illness: Pt seen and examined at bedside. He is awake and alert. He denies shortness of breath. - Current Medication List Current Medications: Active Medications Aspirin (Asa -) 81 mg PO DAILY [facility] Last Admin: 03/18/19 09:03 Dose: 81 mg Calcium Carbonate (Os-Gerard 500mg -) 500 mg PO BID [facility] Last Admin: 03/18/19 09:03 Dose: 500 mg Carbidopa/Levodopa (Sinemet *Cr* 50/200 -) 1 combo PO 0700,1200,1700 [facility] Last Admin: 03/18/19 12:02 Dose: 1 combo Cholecalciferol (Vitamin D3 -) 1,000 unit PO DAILY [facility] Last Admin: 03/18/19 09:03 Dose: 1,000 unit Heparin Sodium (Porcine) (Heparin -) 5,000 unit SQ TID [facility] Last Admin: 03/18/19 14:02 Dose: 5,000 unit Hydrocortisone (Cortef -) 25 mg PO BID [facility] Levothyroxine Sodium (Synthroid -) 50 mcg PO DAILY@0700 [facility] Last Admin: 03/18/19 06:39 Dose: 50 mcg Potassium Chloride (K-Dur -) 20 meq PO DAILY [facility] Last Admin: 03/18/19 09:04 Dose: 20 meq Quetiapine Fumarate (Seroquel -) 12.5 mg PO DAILY PRN PRN Reason: AGITATION - Objective Vital Signs: Vital Signs Temperature 97.5 F L 03/18/19 10:00 Pulse Rate 83 03/18/19 10:00 Respiratory Rate 18 03/18/19 10:00 Blood Pressure 117/67 03/18/19 10:00 O2 Sat by Pulse Oximetry (%) 96 03/17/19 21:00 Constitutional: Yes: Calm Eyes: Yes: Conjunctiva Clear HENT: Yes: Atraumatic Cardiovascular: Yes: S1, S2 Respiratory: Yes: CTA Bilaterally Gastrointestinal: Yes: Soft Genitourinary: Yes: Incontinence Musculoskeletal: Yes: Muscle Weakness Edema: Yes Edema: LLE: 1+, RLE: 1+ Neurological: Yes: Oriented Psychiatric: Yes: Oriented Labs: CBC, BMP 03/18/19 07:50 03/18/19 07:50 INR, PTT INR 1.18 (0.83-1.09) H 03/14/19 15:00 Assessment/Plan Current Medications Generic Name Dose Route Start Last Admin Trade Name Jose Eq PRN Reason Stop Dose Admin Aspirin 81 mg 03/16/19 10:00 03/18/19 09:03 Asa - PO 81 mg DAILY [facility] Administration Calcium Carbonate 500 mg 03/17/19 10:00 03/18/19 09:03 Os-Gerard 500mg - PO 500 mg BID [facility] Administration Carbidopa/Levodopa 1 combo 03/16/19 07:00 03/18/19 12:02 Sinemet *Cr* 50/200 - PO 1 combo 0700,1200,1700 [facility] Administration Cholecalciferol 1,000 unit 03/16/19 10:00 03/18/19 09:03 Vitamin D3 - PO 1,000 unit DAILY [facility] Administration Heparin Sodium (Porcine) 5,000 unit 03/16/19 14:00 03/18/19 14:02 Heparin - SQ 5,000 unit TID [facility] Administration Hydrocortisone 25 mg 03/18/19 22:00 Cortef - PO BID [facility] Levothyroxine Sodium 50 mcg 03/17/19 07:00 03/18/19 06:39 Synthroid - PO 50 mcg DAILY@0700 [facility] Administration Potassium Chloride 20 meq 03/18/19 10:00 03/18/19 09:04 K-Dur - PO 20 meq DAILY [facility] Administration Quetiapine Fumarate 12.5 mg 03/16/19 17:27 Seroquel - PO DAILY PRN AGITATION Impression 1. PO 2. hypokalemia 3. s/p pituitary tumor resection 4. cad 5. hypotension 6. urinary retention Plan - potassium improved - repeat ua - will order eos - pt getting nava for retention - monitor urine output and function - amlodipine stopped - bp is improving
--- NOTE | 2019-03-18 16:02 | CON.GU ---
Consult Consult Specialty:: urology Reason for Consultation:: acute urinary retention - History of Present Illness Chief Complaint: urinary retention History of Present Illness: Patient with history of bph who had been on proscar found to have urinary retention on CT. Patient has had urinary retention in the past and decribes moderate prostatism. Denies gross hematuria, flank pain, or history of previous urologic procedures. Nursing attempted a catheter placement without success. Patient was straight catheterized with a 14 fr catheter to relieve the acute retention. 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 Cardio/Vascular: Yes: CAD, Other (s/p CABG) Pulmonary: No: Asthma, Bronchitis, Cancer, COPD, O2 Dependent, Pneumonia, Previously Intubated, Pulmonary Embolus, Pulmonary Fibrosis, Sleep Apnea, Other Gastrointestinal: No: Ascites, Cancer, Constipation, Crohn's Disease, Diverticulitis, Diverticulosis, Esophageal Varices, Gastritis, GERD, GI Bleed, Hemorrhoids, Hiatal Hernia, Inflamatory Bowel Disease, Irritable Bowel Disease, Pancreatitis, Peptic Ulcer Disease, Ulcerative Colitis, Other Hepatobiliary: No: Cirrhosis, Cholelithiasis, Cholecystitis, Choledocholithiasis , Hepatitis A, Hepatitis B, Hepatitis C, Other Renal/: No: Renal Failure, Renal Inusuff, BPH, Cancer, Hematuria, Hemodialysis , Neurogenic Bladder, Renal Calculi, UTI, Other Infectious Disease: No: AIDS, C-Diff, Herpes Zoster, HIV, MRSA, STD's, Tuberculosis, VREF, Other Endocrine: Yes: Other (Hypopit) - Past Surgical History Past Surgical History: Yes: CABG - Alcohol/Substance Use Hx Alcohol Use: No - Smoking History Smoking history: Former smoker Have you smoked in the past 12 months: Yes If you are a former smoker, when did you quit?: 1966 - Social History Usual Living Arrangement: With Spouse History of Recent Travel: No Home Medications - Allergies Allergies/Adverse Reactions: Allergies Allergy/AdvReac Type Severity Reaction Status Date / Time No Known Allergies Allergy Verified 03/14/19 13:34 - Home Medications Home Medications: Ambulatory Orders Amlodipine Besylate 5 mg DAILY 03/14/19 Aspirin 81 mg DAILY 03/14/19 Carbidopa/Levodopa [Carbidopa-Levo ER 50-200 Tab] 1 tab TID 03/14/19 Cholecalciferol (Vitamin D3) [Vitamin D3] 1,000 unit DAILY 03/14/19 Finasteride 5 mg DAILY 03/14/19 Fludrocortisone Acetate 0.1 mg DAILY 03/14/19 Hydrocortisone 5 mg DAILY 03/14/19 Hydrocortisone 10 mg DAILY 03/14/19 Levothyroxine [Synthroid -] 75 mcg DAILY 03/14/19 Polyethylene Glycol 3350 17 gm DAILY 03/14/19 Rosuvastatin [Crestor -] 40 mg DAILY 03/14/19 Testosterone Cypionate 200 vial ASDIR 03/14/19 Ubidecarenone [Co Q-10] 30 mg DAILY 03/14/19 Physical Exam- Vital Signs: Vital Signs Temperature 97.5 F L 03/18/19 10:00 Pulse Rate 83 03/18/19 10:00 Respiratory Rate 18 03/18/19 10:00 Blood Pressure 117/67 03/18/19 10:00 O2 Sat by Pulse Oximetry (%) 96 03/17/19 21:00 Constitutional: Yes: Well Nourished, No Distress, Calm Eyes: Yes: WNL, Conjunctiva Clear, EOM Intact HENT: Yes: WNL, Atraumatic, Normocephalic Neck: Yes: WNL, Supple, Trachea Midline Cardiovascular: Yes: WNL Respiratory: Yes: WNL Gastrointestinal: Yes: WNL, Normal Bowel Sounds, Soft Renal/: Yes: WNL Kidneys: Yes: WNL Pelvis: Yes: WNL Testicles: Yes: WNL Scrotum: Yes: WNL Penis: Yes: WNL Prostate Exam: Yes: Asymmetrical, Swollen Integumentary: Yes: WNL Labs: CBC, BMP 03/18/19 07:50 03/18/19 07:50 Imaging - Results Cat Scan: Report Reviewed Assessment/Plan impression bph urinary retention PLAN start flomax 0.4 mg daily remove catheter after 48 hours physical therapy
[2019-03-18] MEDS ORDERED: TAMSULOSIN HCL 0.4 MG CAP PO ONE (16:03)
[2019-03-18 16:09] LABS: EPI CELLS 1.4 /HPF (0-5/HPF); HYALINE CASTS 6 /lpf (0-8); PH,URINE 6.5 (5.0-8.0); URINE APPEARANCE TURBID; URINE BACTERIA 66.2 /hpf (NEGATIVE); URINE BILIRUBIN NEGATIVE (NEGATIVE); URINE COLOR YELLOW; URINE GLUCOSE (UA) NEGATIVE (NEGATIVE); URINE KETONE NEGATIVE (NEGATIVE); URINE LEUK ESTERASE 3+ (NEGATIVE); URINE NITRITE NEGATIVE (NEGATIVE); URINE PROTEIN 2+ (NEGATIVE); URINE UROBILINOGEN 0.2 mg/dL (0.2-1.0); URINE WBC 982 /hpf (0-5)
--- NOTE | 2019-03-18 16:38 | PN ---
Physical Exam: SUBJECTIVE: Patient seen and examined at the bedside. Patient states he feels well. Denied cp, sob, abd pain, n/v/c/d, fever, chills, numbness, tingling, headaches. OBJECTIVE: Vital Signs Period Temp Pulse Resp BP Sys/Miguel Pulse Ox Last 24 Hr 97.3 F-97.7 F 76-86 18-18 117-131/67-78 96 GENERAL: Awake, alert, and fully oriented, in no acute distress. HEAD: Normal with no signs of trauma. ENT: Moist mucous membranes LUNGS: Breath sounds equal, clear to auscultation bilaterally. No wheezes, and no crackles. No accessory muscle use. HEART: Regular rate and rhythm, normal S1 and S2 without murmur, rub. ABDOMEN: Soft, nontender, not distended, normoactive bowel sounds, no guarding, no rebound, no masses. UPPER EXTREMITIES: 2+ pulses, warm, well-perfused. No cyanosis. No clubbing. No peripheral edema. LOWER EXTREMITIES: 2+ pulses, warm, well-perfused. No calf tenderness. 2+ peripheral edema. NEUROLOGICAL: Cranial nerves II-XII intact. 4/5 UE against resistance, able to lift legs on passive ROM (4/5), normal sensation. Cogwheeling present in L arm. Unable to perform rapid movements. PSYCHIATRIC: Cooperative. Good eye contact. Appropriate mood and affect. SKIN: Warm, dry, ecchymosis on bilateral arms. Laboratory Results - last 24 hr 03/18/19 03/18/19 03/18/19 07:50 07:50 15:04 WBC 17.6 H RBC 3.80 L Hgb 11.1 L Hct 33.3 L MCV 87.7 MCH 29.2 MCHC 33.3 RDW 15.5 Plt Count 204 MPV 7.6 Absolute Neuts (auto) 16.0 H Neutrophils % 91.1 H Neutrophils % (Manual) 91.0 H Band Neutrophils % 0.0 Lymphocytes % 6.1 L Lymphocytes % (Manual) 4.0 L D Monocytes % 2.7 L Monocytes % (Manual) 3 L Eosinophils % 0.0 Eosinophils % (Manual) 0.0 Basophils % 0.1 Basophils % (Manual) 0.0 Myelocytes % (Man) 0 Promyelocytes % (Man) 0 Blast Cells % (Manual) 0 Nucleated RBC % 0 Metamyelocytes 0 Hypochromia 0 Platelet Estimate Normal Polychromasia 0 Poikilocytosis 1+ Anisocytosis 1+ Microcytosis 0 Macrocytosis 0 Sodium 140 Potassium 3.7 Chloride 105 Carbon Dioxide 26 Anion Gap 8 BUN 27.6 H Creatinine 2.9 H Est GFR (CKD-EPI)AfAm 22.96 Est GFR (CKD-EPI)NonAf 19.81 Random Glucose 120 H Calcium 7.6 L Phosphorus 3.4 Magnesium 1.9 Urine Color Yellow Urine Appearance Turbid Urine pH 6.5 Ur Specific [place] 1.013 Urine Protein 2+ H Urine Glucose (UA) Negative Urine Ketones Negative Urine Blood 3+ H Urine Nitrite Negative Urine Bilirubin Negative Urine Urobilinogen 0.2 Ur Leukocyte Esterase 3+ H Urine WBC (Auto) 982 Urine Casts (Auto) 6 U Epithel Cells (Auto) 1.4 Urine Bacteria (Auto) 66.2 Active Medications Generic Name Dose Route Start Last Admin Trade Name Freq PRN Reason Stop Dose Admin Aspirin 81 mg 03/16/19 10:00 03/18/19 09:03 Asa - PO 81 mg DAILY [facility] Administration Calcium Carbonate 500 mg 03/17/19 10:00 03/18/19 09:03 Os-Gerard 500mg - PO 500 mg BID [facility] Administration Carbidopa/Levodopa 1 combo 03/16/19 07:00 03/18/19 12:02 Sinemet *Cr* 50/200 - PO 1 combo 0700,1200,1700 [facility] Administration Cholecalciferol 1,000 unit 03/16/19 10:00 03/18/19 09:03 Vitamin D3 - PO 1,000 unit DAILY [facility] Administration Heparin Sodium (Porcine) 5,000 unit 03/16/19 14:00 03/18/19 14:02 Heparin - SQ 5,000 unit TID [facility] Administration Hydrocortisone 25 mg 03/18/19 22:00 Cortef - PO BID [facility] Levothyroxine Sodium 50 mcg 03/17/19 07:00 03/18/19 06:39 Synthroid - PO 50 mcg DAILY@0700 [facility] Administration Potassium Chloride 20 meq 03/18/19 10:00 03/18/19 09:04 K-Dur - PO 20 meq DAILY [facility] Administration Quetiapine Fumarate 12.5 mg 03/16/19 17:27 Seroquel - PO DAILY PRN AGITATION ASSESSMENT/PLAN: Titi Gary is a 79 year old male with a past medical history of Shy Dragers parkinson's disease, CAD (s/p quadruple bypass), pituitary tumor (s/p resection 1997),hypothyroidism (on synthroid 75mcg) who admitted with 1 week of AMS, diarrhea and falls. Presyncopal fall -> likely 2/2 Shy drager hx/dehydration/Iatrogenic Hyperthyroidism/UTI - CT head negative for acute intracranial hemmorhage, CT cervical spine- C4-5, C5-6 degenerative central canal stenosis with signs of fracture. CT hip/pelvis is pending. - IVF hydration stopped due to edema, patient strength and lethagy improvement - orthostatic vitals prior to fluids given negative - will decrease synthroid to 50mcg per Dr. Ferguson - Consult endo (Dr. Menjivar) for recs, spoken to today and recommended switching from IV Solu-cortef 100mg tid to hydrocortisone 25mg bid. Hold Florinef. - Seizure/Fall precautions implemented - PT eval, 80ft ambulation - echo showing EF 55-60%, moderately dilated left atrium, trace mitral and triscuspid regurg, mild aortic sclerosis - repeat EKG showing NSR, age indeterminate anterior infarct QTc 475 - UA + nitrites, 3+ LE, +bacteria, WBC, repeat UA + for infection - Ucx first contaminated, repeat pending - restart ceftriaxone based on +UA and inability to void Diarrhea -> likely colitis/rule out c diff - CT Abd pelvis without contrast- no signs of colitis, diverticulitis, just diverticulosis. - ordered c diff, fecal calprotectin, stool c&s, ova and parasites negative PO on CKD - possibly due to recent trauma or hypophosphatemia 2/2 diarrhea and poor po intake - renal sono showing normal kidneys - Renal consulted (Dr. Correa) for PO on CKD recommendations. 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 - ACTH <1.1 (low) and AM cortisol pending - nava catheter placed due to retention >900cc - urology consulted, recs appreciated - remove catheter after 48 hours - tamsulosin not started due to concerns of orthostatic hypotension Hypokalemia - continue potassium supplementation, improved today 4.0, continue to monitor - monitor K every 4 hours - repeat EKG with no acute changes - urine K to evaluate for TTKG - 20 MEq daily supplementation Parkinson's Disease - continue home Sinemet - neurology consulted, recs appreciated - Seroquel 12.5mg prn for agitation at night CAD hx - continue home aspirin and atorvastatin Hypothyroidism - decreased synthroid dose due to decreased TSH, signifying iatrogenic hyperthyroidism - endocrine consult - will require outpatient f/u for thyroid function tests in 4-6 weeks after discharge FEN - no standing fluids, encourage PO intake - continue to monitor electrolytes and replete as necessary - sodium controlled diet DVT PPX - Heparin 5000 units subq TID Dispo - transfer to Med-surg Visit type - Emergency Visit Emergency Visit: Yes ED Registration Date: 03/14/19 Care time: The patient presented to the Emergency Department on the above date and was hospitalized for further evaluation of their emergent condition. - New Patient This patient is new to me today: No - Critical Care Critical Care patient: No
[2019-03-18 17:17] LABS: URINE RBC 25 /hpf (0-4)
[2019-03-18] MEDS ORDERED: cefTRIAXone SODIUM 1 GM VIAL ONE (17:27)
[2019-03-18] MEDS ORDERED: DEXTROSE 5%-WATER - 50 ML IVPB ONE (17:28)
[2019-03-18] MEDS: CEFTRIAXONE 1 GM in DEXTROSE 5%-WATER - 50 ML IVPB SCH (17:31)
--- NOTE | 2019-03-18 19:59 | PN ---
Progress Note, Physician Chief Complaint: comfortable no complaint eating well - Current Medication List Current Medications: Active Medications Aspirin (Asa -) 81 mg PO DAILY [facility] Last Admin: 03/18/19 09:03 Dose: 81 mg Calcium Carbonate (Os-Gerard 500mg -) 500 mg PO BID [facility] Last Admin: 03/18/19 09:03 Dose: 500 mg Carbidopa/Levodopa (Sinemet *Cr* 50/200 -) 1 combo PO 0700,1200,1700 [facility] Last Admin: 03/18/19 17:23 Dose: 1 combo Cholecalciferol (Vitamin D3 -) 1,000 unit PO DAILY [facility] Last Admin: 03/18/19 09:03 Dose: 1,000 unit Heparin Sodium (Porcine) (Heparin -) 5,000 unit SQ TID [facility] Last Admin: 03/18/19 14:02 Dose: 5,000 unit Hydrocortisone (Cortef -) 25 mg PO BID [facility] Ceftriaxone Sodium 1 gm/ (Dextrose) 50 mls @ 100 mls/hr IVPB DAILY [facility]; Protocol Last Admin: 03/18/19 17:31 Dose: 100 mls/hr Levothyroxine Sodium (Synthroid -) 50 mcg PO DAILY@0700 [facility] Last Admin: 03/18/19 06:39 Dose: 50 mcg Potassium Chloride (K-Dur -) 20 meq PO DAILY [facility] Last Admin: 03/18/19 09:04 Dose: 20 meq Quetiapine Fumarate (Seroquel -) 12.5 mg PO DAILY PRN PRN Reason: AGITATION Tamsulosin HCl (Flomax -) 0.4 mg PO DAILY@0830 [facility] - Objective Vital Signs: Vital Signs Temperature 97.3 F L 03/18/19 18:00 Pulse Rate 84 03/18/19 18:00 Respiratory Rate 20 03/18/19 18:00 Blood Pressure 139/80 03/18/19 18:00 O2 Sat by Pulse Oximetry (%) 96 03/18/19 09:00 Constitutional: Yes: Calm Eyes: Yes: EOM Intact HENT: Yes: Normocephalic Neck: Yes: Trachea Midline Cardiovascular: Yes: Regular Rate and Rhythm Respiratory: Yes: CTA Bilaterally Gastrointestinal: Yes: Normal Bowel Sounds ...Rectal Exam: Yes: Deferred Genitourinary: Yes: WNL Breast(s): Yes: WNL Musculoskeletal: Yes: Muscle Pain, Muscle Weakness Extremities: Yes: WNL Integumentary: Yes: Venous Stasis Changes Neurological: Yes: Alert Labs: CBC, BMP 03/18/19 07:50 03/18/19 07:50 INR, PTT INR 1.18 (0.83-1.09) H 03/14/19 15:00 Problem List - Problems (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 Problems reviewed: Yes Code(s): E89.3 - POSTPROCEDURAL HYPOPITUITARISM (2) Hypokalemia Problems reviewed: Yes Code(s): E87.6 - HYPOKALEMIA (3) Central hypothyroidism Problems reviewed: Yes Code(s): E03.8 - OTHER SPECIFIED HYPOTHYROIDISM Assessment/Plan Current Active Problems Altered mental status (Acute) Central hypothyroidism (Acute) Falls frequently (Acute) Hypokalemia (Acute) 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 (Acute) Abnormal Lab Results 03/17/19 03/18/19 03/18/19 06:05 07:50 07:50 WBC 17.6 H RBC 3.80 L Hgb 11.1 L Hct 33.3 L Absolute Neuts (auto) 16.0 H Neutrophils % 91.1 H Neutrophils % (Manual) 91.0 H Lymphocytes % 6.1 L Lymphocytes % (Manual) 4.0 L D Monocytes % 2.7 L Monocytes % (Manual) 3 L BUN 27.6 H Creatinine 2.9 H Random Glucose 120 H Calcium 7.6 L ACTH < 1.1 L Urine Protein Urine Blood Ur Leukocyte Esterase 03/18/19 15:04 WBC RBC Hgb Hct Absolute Neuts (auto) Neutrophils % Neutrophils % (Manual) Lymphocytes % Lymphocytes % (Manual) Monocytes % Monocytes % (Manual) BUN Creatinine Random Glucose Calcium ACTH Urine Protein 2+ H Urine Blood 3+ H Ur Leukocyte Esterase 3+ H plan: hypopituitary : support adrenal cortex cortef 25mg bid synthroid for central hypothyroidism 25mcg daily follow up bmp as outpatient renal follow up
[2019-03-18] MEDS: HYDROCORTISONE 10 MG TABLET PO SCH (21:41)
[2019-03-19] MEDS ORDERED: PT OWN MED DRAWER 7, Y5N ONE ×2 (06:03→21:24)
[2019-03-19] MEDS: HEPARIN NA (PORCINE) 5,000 UNITS/ML 1ML VIAL SQ SCH ×2 (06:05→13:37)
[2019-03-19] MEDS: LEVOTHYROXINE NA 50 MCG TABLET (FP) PO SCH (06:05)
[2019-03-19 06:55] LABS: HEMATOCRIT 33.8 % (35.4-49); HEMOGLOBIN 11.3 GM/dL (11.7-16.9); MCH 29.1 pg (25.7-33.7); MCHC 33.5 g/dl (32.0-35.9); MEAN CELL VOLUME 86.9 fl (80-96); MEAN PLT VOLUME 7.3 fl (7.5-11.1); PLATELET COUNT 193 K/MM3 (134-434); RBC 3.89 M/mm3 (4.00-5.60); RDW 15.5 % (11.9-15.9); WHITE BLOOD COUNT 16.7 K/mm3 (4.0-10.0)
[2019-03-19] MEDS ORDERED: LEVOTHYROXINE NA 25 MCG TABLET (FP) PO SCH ×3 (07:00→07:38)
[2019-03-19 07:20] LABS: ALBUMIN 2.3 g/dl (3.4-5.0); BILIRUBIN,TOTAL 0.3 mg/dL (0.2-1); BLOOD UREA NITROGEN 31.3 mg/dL (7-18); CALCIUM 7.6 mg/dL (8.5-10.1); CREATININE 2.6 mg/dL (0.55-1.3); MAGNESIUM 1.9 mg/dL (1.8-2.4); POTASSIUM 3.7 mmol/L (3.5-5.1); TOT PROT 5.7 g/dl (6.4-8.2)
[2019-03-19] MEDS ORDERED: MAGNESIUM OXIDE 400 MG TABLET (FP) PO ONE (07:39)
[2019-03-19] MEDS ORDERED: TAMSULOSIN HCL 0.4 MG CAP PO SCH ×2 (08:30)
--- NOTE | 2019-03-19 08:41 | CON.GU ---
Consult - History of Present Illness History of Present Illness: 79 yo male well known to me for many years with BPH, hypotonic bladder dysfunction, s/p Greenlight laser of prostate in the past. Now noted to have residual of 900cc. Pt was admitted for altered mental status. Ruiz placed by Dr Wili Melchor yesterday.FGlomax started. Pt takes finasteride at home - Past Medical History BIOGEOGRAPHER: Yes: Parkinson's Cardio/Vascular: Yes: CAD, Other (s/p CABG) Pulmonary: No: Asthma, Bronchitis, Cancer, COPD, O2 Dependent, Pneumonia, Previously Intubated, Pulmonary Embolus, Pulmonary Fibrosis, Sleep Apnea, Other Gastrointestinal: No: Ascites, Cancer, Constipation, Crohn's Disease, Diverticulitis, Diverticulosis, Esophageal Varices, Gastritis, GERD, GI Bleed, Hemorrhoids, Hiatal Hernia, Inflamatory Bowel Disease, Irritable Bowel Disease, Pancreatitis, Peptic Ulcer Disease, Ulcerative Colitis, Other Hepatobiliary: No: Cirrhosis, Cholelithiasis, Cholecystitis, Choledocholithiasis , Hepatitis A, Hepatitis B, Hepatitis C, Other Renal/: No: Renal Failure, Renal Inusuff, BPH, Cancer, Hematuria, Hemodialysis , Neurogenic Bladder, Renal Calculi, UTI, Other Infectious Disease: No: AIDS, C-Diff, Herpes Zoster, HIV, MRSA, STD's, Tuberculosis, VREF, Other Endocrine: Yes: Other (Hypopit) - Past Surgical History Past Surgical History: Yes: CABG - Alcohol/Substance Use Hx Alcohol Use: No - Smoking History Smoking history: Former smoker Have you smoked in the past 12 months: Yes If you are a former smoker, when did you quit?: 1966 - Social History Usual Living Arrangement: With Spouse History of Recent Travel: No Home Medications - Allergies Allergies/Adverse Reactions: Allergies Allergy/AdvReac Type Severity Reaction Status Date / Time No Known Allergies Allergy Verified 03/14/19 13:34 - Home Medications Home Medications: Ambulatory Orders Amlodipine Besylate 5 mg DAILY 03/14/19 Aspirin 81 mg DAILY 03/14/19 Carbidopa/Levodopa [Carbidopa-Levo ER 50-200 Tab] 1 tab TID 03/14/19 Cholecalciferol (Vitamin D3) [Vitamin D3] 1,000 unit DAILY 03/14/19 Finasteride 5 mg DAILY 03/14/19 Fludrocortisone Acetate 0.1 mg DAILY 03/14/19 Hydrocortisone 5 mg DAILY 03/14/19 Hydrocortisone 10 mg DAILY 03/14/19 Levothyroxine [Synthroid -] 75 mcg DAILY 03/14/19 Polyethylene Glycol 3350 17 gm DAILY 03/14/19 Rosuvastatin [Crestor -] 40 mg DAILY 03/14/19 Testosterone Cypionate 200 vial ASDIR 03/14/19 Ubidecarenone [Co Q-10] 30 mg DAILY 03/14/19 Review of Systems - Review of Systems Genitourinary: reports: Other (incomplete emptying) Physical Exam- Vital Signs: Vital Signs Temperature 97.7 F 03/19/19 06:00 Pulse Rate 79 03/19/19 06:00 Respiratory Rate 20 03/19/19 06:00 Blood Pressure 137/77 03/19/19 06:00 O2 Sat by Pulse Oximetry (%) 96 03/18/19 21:00 Renal/: Yes: Ruiz Present Labs: CBC, BMP 03/19/19 06:35 03/19/19 06:35 Problem List - Problems (1) Urinary retention Assessment/Plan: agree with flomax, will add Finasteride. Agree with voiding trial on Monday am Code(s): R33.9 - RETENTION OF URINE, UNSPECIFIED
--- NOTE | 2019-03-19 09:48 | PN ---
Progress Note, Physician Chief Complaint: no CP, SOB, palps OFF TELE - Current Medication List Current Medications: Active Medications Aspirin (Asa -) 81 mg PO DAILY [facility] Last Admin: 03/18/19 09:03 Dose: 81 mg Calcium Carbonate (Os-Gerard 500mg -) 500 mg PO BID [facility] Last Admin: 03/18/19 21:41 Dose: 500 mg Carbidopa/Levodopa (Sinemet *Cr* 50/200 -) 1 combo PO 0700,1200,1700 [facility] Last Admin: 03/19/19 06:05 Dose: 1 combo Cholecalciferol (Vitamin D3 -) 1,000 unit PO DAILY [facility] Last Admin: 03/18/19 09:03 Dose: 1,000 unit Heparin Sodium (Porcine) (Heparin -) 5,000 unit SQ TID [facility] Last Admin: 03/19/19 06:05 Dose: 5,000 unit Hydrocortisone (Cortef -) 25 mg PO BID [facility] Last Admin: 03/18/19 21:41 Dose: 25 mg Ceftriaxone Sodium 1 gm/ (Dextrose) 50 mls @ 100 mls/hr IVPB DAILY [facility]; Protocol Last Admin: 03/18/19 17:31 Dose: 100 mls/hr Levothyroxine Sodium (Synthroid -) 25 mcg PO DAILY@0700 [facility] Potassium Chloride (K-Dur -) 20 meq PO DAILY [facility] Last Admin: 03/18/19 09:04 Dose: 20 meq Quetiapine Fumarate (Seroquel -) 12.5 mg PO DAILY PRN PRN Reason: AGITATION - Objective Vital Signs: Vital Signs Temperature 97.7 F 03/19/19 06:00 Pulse Rate 79 03/19/19 06:00 Respiratory Rate 20 03/19/19 06:00 Blood Pressure 137/77 03/19/19 06:00 O2 Sat by Pulse Oximetry (%) 96 03/18/19 21:00 Constitutional: Yes: No Distress Cardiovascular: Yes: Regular Rate and Rhythm Respiratory: Yes: CTA Bilaterally Gastrointestinal: Yes: Soft Edema: Yes Edema: LLE: 2+, RLE: 2+ Neurological: Yes: Alert, Unresponsive Labs: CBC, BMP 03/19/19 06:35 03/19/19 06:35 INR, PTT INR 1.18 (0.83-1.09) H 03/14/19 15:00 Laboratory Tests 03/17/19 03/19/19 06:05 06:35 Albumin 2.2 L 2.3 L Assessment/Plan tele: NSR IMP: Resolving Hypokalemia Acute on chronic renal failure Virginie salcedo Parkinson's disease CAD (s/p quadruple bypass) Pituitary tumor (s/p resection 1997) Hypothyroidism AMS Diarrhea Falls Hypoalbuminemia REC: 1. Continued adjustment/regulation of steroids as per Endo 2. Renal following: K+ improved. bun/creat remain up--per renal team 3. Agree with holding Amlodipine. Vasodilatory effect may contribute to orthostatic BP changes leading to falls. Patient has underlying PD with autonomic dysfx on that basis. Thus would minimize use of any vasodilatory meds that are not required. 4. CAD chronic/stable with recent echo showing normal LVEF and no sig valve disease. No arrhythmias on tele to explain falls. Pt is followed closely by outside improvement auditor at [facility]. 5. Further w/u of diarrhea as per primary team and GI. 6. Edema likely to 3rd spacing, low albumin; check LE duplex to r/o DVT
[2019-03-19] MEDS ORDERED: DEXTROSE 5%-WATER - 50 ML IVPB ONE (09:59)
[2019-03-19] MEDS ORDERED: cefTRIAXone SODIUM 1 GM VIAL ONE (09:59)
[2019-03-19] MEDS: POTASSIUM CHLORIDE TABS 20 MEQ TABLET.ER (FP) PO SCH (10:17)
[2019-03-19] MEDS: CHOLECALCIFEROL (VIT D3) 1,000 UNIT (25 MCG) TABLET PO SCH (10:17)
[2019-03-19] MEDS: CEFTRIAXONE 1 GM in DEXTROSE 5%-WATER - 50 ML IVPB SCH (10:17)
[2019-03-19] MEDS: CALCIUM (OYSTER SHELL) 500 MG TABLET (FP) PO SCH ×2 (10:17→21:17)
[2019-03-19] MEDS: HYDROCORTISONE 10 MG TABLET PO SCH ×2 (10:18→21:17)
[2019-03-19] MEDS: ASPIRIN 81 MG CHEWABLE TABLETS PO SCH (10:56)
--- NOTE | 2019-03-19 14:21 | PN ---
Teaching Attending Note Name of Resident: Wade Cruz ATTENDING PHYSICIAN STATEMENT I saw and evaluated the patient. I reviewed the resident's note and discussed the case with the resident. I agree with the resident's findings and plan as documented with exceptions below. SUBJECTIVE: Patient seen and examined. No dyspnea, dizziness, abdominal pain or urinary symptoms currently. OBJECTIVE: Vital Signs Period Temp Pulse Resp BP Sys/Miguel Pulse Ox Last 24 Hr 97.3 F-98.1 F 78-84 18-20 136-139/72-86 96-97 Intake & Output 03/16/19 03/17/19 03/18/19 03/19/19 23:59 23:59 23:59 23:59 Intake Total 4555 1390 1490 Output Total 2400 600 Balance 4555 1390 -910 -600 General: sitting in bed, no acute distress neck: soft, supple Chest: CTAB, no rales or wheezing Abdomen:Soft, obese, NT throughout, no suprapubic or CVA tenderness, nava in place extremities: 2+ pedal edema, unchanged Home Medications Medication Instructions Recorded Amlodipine Besylate 5 mg DAILY 03/14/19 Aspirin 81 mg DAILY 03/14/19 Carbidopa/Levodopa [Carbidopa-Levo 1 tab TID 03/14/19 ER 50-200 Tab] Cholecalciferol (Vitamin D3) 1,000 unit DAILY 03/14/19 [Vitamin D3] Finasteride 5 mg DAILY 03/14/19 Fludrocortisone Acetate 0.1 mg DAILY 03/14/19 Hydrocortisone 5 mg DAILY 03/14/19 Hydrocortisone 10 mg DAILY 03/14/19 Levothyroxine [Synthroid -] 75 mcg DAILY 03/14/19 Polyethylene Glycol 3350 17 gm DAILY 03/14/19 Rosuvastatin [Crestor -] 40 mg DAILY 03/14/19 Testosterone Cypionate 200 vial ASDIR 03/14/19 Ubidecarenone [Co Q-10] 30 mg DAILY 03/14/19 Active Medications Aspirin (Asa -) 81 mg PO DAILY [facility] Last Admin: 03/19/19 10:56 Dose: 81 mg Calcium Carbonate (Os-Gerard 500mg -) 500 mg PO BID [facility] Last Admin: 03/19/19 10:17 Dose: 500 mg Carbidopa/Levodopa (Sinemet *Cr* 50/200 -) 1 combo PO 0700,1200,1700 [facility] Last Admin: 03/19/19 11:43 Dose: 1 combo Cholecalciferol (Vitamin D3 -) 1,000 unit PO DAILY [facility] Last Admin: 03/19/19 10:17 Dose: 1,000 unit Finasteride (Proscar -) 5 mg PO HS [facility] Heparin Sodium (Porcine) (Heparin -) 5,000 unit SQ TID [facility] Last Admin: 03/19/19 13:37 Dose: 5,000 unit Hydrocortisone (Cortef -) 25 mg PO BID [facility] Last Admin: 03/19/19 10:18 Dose: 25 mg Ceftriaxone Sodium 1 gm/ (Dextrose) 50 mls @ 100 mls/hr IVPB DAILY [facility]; Protocol Last Admin: 03/19/19 10:17 Dose: 100 mls/hr Levothyroxine Sodium (Synthroid -) 50 mcg PO DAILY@0700 [facility] Potassium Chloride (K-Dur -) 20 meq PO DAILY [facility] Last Admin: 03/19/19 10:17 Dose: 20 meq Quetiapine Fumarate (Seroquel -) 12.5 mg PO DAILY PRN PRN Reason: AGITATION Laboratory Results - last 24 hr 03/16/19 03/17/19 03/17/19 10:00 06:05 06:05 WBC RBC Hgb Hct MCV MCH MCHC RDW Plt Count MPV Sodium Potassium Chloride Carbon Dioxide Anion Gap BUN Creatinine Est GFR (CKD-EPI)AfAm Est GFR (CKD-EPI)NonAf Random Glucose Calcium Magnesium Total Bilirubin AST ALT Alkaline Phosphatase Total Protein Albumin Cortisol AM Sample 69.6 H ACTH < 1.1 L Urine Color Urine Appearance Urine pH Ur Specific [employer] Urine Protein Urine Glucose (UA) Urine Ketones Urine Blood Urine Nitrite Urine Bilirubin Urine Urobilinogen Ur Leukocyte Esterase Urine WBC (Auto) Urine RBC (Auto) Urine Casts (Auto) U Pathogenic Cast Auto U Epithel Cells (Auto) Urine Bacteria (Auto) Stool Calprotectin Stool O & P Wet [place] Permanent Slide Final report 03/17/19 03/18/19 03/19/19 12:30 15:04 06:35 WBC RBC Hgb Hct MCV MCH MCHC RDW Plt Count MPV Sodium 138 Potassium 3.7 Chloride 103 Carbon Dioxide 27 Anion Gap 7 L BUN 31.3 H Creatinine 2.6 H Est GFR (CKD-EPI)AfAm 26.20 Est GFR (CKD-EPI)NonAf 22.61 Random Glucose 108 H Calcium 7.6 L Magnesium 1.9 Total Bilirubin 0.3 AST 40 H ALT 13 Alkaline Phosphatase 131 H Total Protein 5.7 L Albumin 2.3 L Cortisol AM Sample ACTH Urine Color Yellow Urine Appearance Turbid Urine pH 6.5 Ur Specific [employer] 1.013 Urine Protein 2+ H Urine Glucose (UA) Negative Urine Ketones Negative Urine Blood 3+ H Urine Nitrite Negative Urine Bilirubin Negative Urine Urobilinogen 0.2 Ur Leukocyte Esterase 3+ H Urine WBC (Auto) 982 Urine RBC (Auto) 25 Urine Casts (Auto) 6 U Pathogenic Cast Auto None U Epithel Cells (Auto) 1.4 Urine Bacteria (Auto) 66.2 Stool Calprotectin 2376 H Stool O & P Wet [place] [employer] Permanent Slide 03/19/19 06:35 WBC 16.7 H RBC 3.89 L Hgb 11.3 L Hct 33.8 L MCV 86.9 MCH 29.1 MCHC 33.5 RDW 15.5 Plt Count 193 MPV 7.3 L Sodium Potassium Chloride Carbon Dioxide Anion Gap BUN Creatinine Est GFR (CKD-EPI)AfAm Est GFR (CKD-EPI)NonAf Random Glucose Calcium Magnesium Total Bilirubin AST ALT Alkaline Phosphatase Total Protein Albumin Cortisol AM Sample ACTH Urine Color Urine Appearance Urine pH Ur Specific [employer] Urine Protein Urine Glucose (UA) Urine Ketones Urine Blood Urine Nitrite Urine Bilirubin Urine Urobilinogen Ur Leukocyte Esterase Urine WBC (Auto) Urine RBC (Auto) Urine Casts (Auto) U Pathogenic Cast Auto U Epithel Cells (Auto) Urine Bacteria (Auto) Stool Calprotectin Stool O & P Wet [place] [employer] Permanent Slide Microbiology 03/17/19 19:00 Urine - Urine Clean Catch Urine Culture - Preliminary Group D Strep Or Entero Coccus 03/16/19 10:00 Stool Salmonella/Shigella Culture - Final NO GROWTH OF SALMONELLA OR SHIGELLA SPECIES OBTAINED 03/16/19 10:00 Stool Campylobacter Culture - Final NO GROWTH OF CAMPYLOBACTER SPECIES OBTAINED 03/16/19 10:00 Stool Yersinia Culture - Final NO GROWTH OF YERSINIA SPECIES OBTAINED 03/16/19 10:00 Stool Vibrio Culture - Final NO GROWTH OF VIBRIO SPECIES OBTAINED 03/16/19 10:00 Stool Escherichia coli 0157 Culture - Final NO GROWTH OF E COLI 0157 OBTAINED 03/16/19 10:00 Stool Clostridioides difficile Antigen - Final 03/16/19 10:00 Stool Clostridioides difficile Toxin Assay - Final 03/15/19 11:10 Urine - Urine Clean Catch Urine Culture - Final Contaminated: Please Repeat ASSESSMENT AND PLAN: 79 year old male with history of Parkinson Disease/Shy Drager Syndrome, Pituitary tumor (s/p resection), coronary artery disease (s/p CABG x4 vessels), hypothyroidism, HLD, HTN, BPH, presents with recurrent falls, poor oral intake, loose stool, and altered mental status. He was found to have severe electrolyte abnormalities including K 2.2 -BPH with acute urinary retention, s/p nava -Complicated UTI -Acute metabolic encephalopathy, likely dehdyration/poor oral intake/reported diarrhea, resolved -Severe hypokalemia, suspect from poor oral intake/Gi losses/Florinef/ Hydrocortisone -PO on CKD, likely from above -Diarrhea, ?hyperthyroidism -Pituitory tumor s/p resection with secondary hormonal insufficiency -Secondary Adrenal Insufficiency -Hypothyroidism -Secondary hypgonadism -Leucocytosis, suspect steroid mediated -CAD s/p CABG -Parkinson's disease -Shy Drager Syndrome -HLD -HTN -BPH Plan: Urinary retention, nava placement by urology yesterday. Avoid flomax given parkinson's disease, autonomic dysfunction and concerns for recurrent falls/syncope. Discussed with Dr. Ferguson. resumed finasteride. Voiding trial in AM, if fails, will need dc with nava and outpatient follow up with Dr. Collado. patient reports being on nava in the past and may be able to manage it with home lending officer and son's help. Ceftriaxone resumed, follow up final urine cx. Cardiology input noted. Ordered Duplex LE. Low suspicion for DVT. Telemetry d/jaiden. Hold amlodipine given suspected autonomic dysfunction from underlying parkinson' s disease, with recurrent falls. Endocrine input noted. Discussed with Dr. Ferguson, hydrocortisone tapered to 25 mg BID. Will continue levothyroxine 50 mcg for now as dose decreased this admission, with repeat TFTs in 4-6 weeks. renal input noted. Pedal edema. Florinef on hold. BP stable, will likely discontinue on discharge. Diarrhea could be from hyperthyroidism/endocrine abnormalities. No active issues, GI input noted, stool studies neg. Monitor for now. Neuro eval noted. continue sinemet. Seroquel prn for agitation/owning. Continue ASA. CPK normal, resume crestor. DVTPPX heparin PT eval noted Dispo dc home with services vs SNF in 24 hours pending voiding trial and clinical improvement. patient to discuss with son and social work to address dispo needs. Discussed with social work.
--- NOTE | 2019-03-19 14:29 | PN ---
Physical Exam: SUBJECTIVE: Patient seen and examined at the bedside. Patient stated that he is doing well and only complained of mild discomfort with the nava catheter. Was eager to go home. Denied cp, sob, abd pain, n/v/c/d, fever, chills, numbness, tingling, headaches, lightheadedness, dizziness, hematuria. OBJECTIVE: Vital Signs Period Temp Pulse Resp BP Sys/Miguel Pulse Ox Last 24 Hr 97.3 F-98.1 F 78-84 18-20 136-139/72-86 96-97 GENERAL: Awake, alert, and fully oriented, in no acute distress. HEAD: Normal with no signs of trauma. ENT: Moist mucous membranes LUNGS: Breath sounds equal, clear to auscultation bilaterally. No wheezes, and no crackles. No accessory muscle use. HEART: Regular rate and rhythm, normal S1 and S2 without murmur, rub. ABDOMEN: Soft, nontender, not distended, normoactive bowel sounds, no guarding, no rebound, no masses. UPPER EXTREMITIES: 2+ pulses, warm, well-perfused. No cyanosis. No clubbing. No peripheral edema. LOWER EXTREMITIES: 2+ pulses, warm, well-perfused. No calf tenderness. 2+ peripheral edema. NEUROLOGICAL: Cranial nerves II-XII intact. 4/5 UE against resistance, able to lift legs on passive ROM (4/5), normal sensation. Cogwheeling present in L arm. Unable to perform rapid movements. PSYCHIATRIC: Cooperative. Good eye contact. Appropriate mood and affect. SKIN: Warm, dry, ecchymosis on bilateral arms. Laboratory Results - last 24 hr 03/16/19 03/17/19 03/17/19 10:00 06:05 06:05 WBC RBC Hgb Hct MCV MCH MCHC RDW Plt Count MPV Sodium Potassium Chloride Carbon Dioxide Anion Gap BUN Creatinine Est GFR (CKD-EPI)AfAm Est GFR (CKD-EPI)NonAf Random Glucose Calcium Magnesium Total Bilirubin AST ALT Alkaline Phosphatase Total Protein Albumin Cortisol AM Sample 69.6 H ACTH < 1.1 L Urine Color Urine Appearance Urine pH Ur Specific [place] Urine Protein Urine Glucose (UA) Urine Ketones Urine Blood Urine Nitrite Urine Bilirubin Urine Urobilinogen Ur Leukocyte Esterase Urine WBC (Auto) Urine RBC (Auto) Urine Casts (Auto) U Pathogenic Cast Auto U Epithel Cells (Auto) Urine Bacteria (Auto) Stool Calprotectin Stool O & P Wet [place] [employer] Permanent Slide Final report 03/17/19 03/18/19 03/19/19 12:30 15:04 06:35 WBC RBC Hgb Hct MCV MCH MCHC RDW Plt Count MPV Sodium 138 Potassium 3.7 Chloride 103 Carbon Dioxide 27 Anion Gap 7 L BUN 31.3 H Creatinine 2.6 H Est GFR (CKD-EPI)AfAm 26.20 Est GFR (CKD-EPI)NonAf 22.61 Random Glucose 108 H Calcium 7.6 L Magnesium 1.9 Total Bilirubin 0.3 AST 40 H ALT 13 Alkaline Phosphatase 131 H Total Protein 5.7 L Albumin 2.3 L Cortisol AM Sample ACTH Urine Color Yellow Urine Appearance Turbid Urine pH 6.5 Ur Specific [place] 1.013 Urine Protein 2+ H Urine Glucose (UA) Negative Urine Ketones Negative Urine Blood 3+ H Urine Nitrite Negative Urine Bilirubin Negative Urine Urobilinogen 0.2 Ur Leukocyte Esterase 3+ H Urine WBC (Auto) 982 Urine RBC (Auto) 25 Urine Casts (Auto) 6 U Pathogenic Cast Auto None U Epithel Cells (Auto) 1.4 Urine Bacteria (Auto) 66.2 Stool Calprotectin 2376 H Stool O & P Wet [place] [employer] Permanent Slide 03/19/19 06:35 WBC 16.7 H RBC 3.89 L Hgb 11.3 L Hct 33.8 L MCV 86.9 MCH 29.1 MCHC 33.5 RDW 15.5 Plt Count 193 MPV 7.3 L Sodium Potassium Chloride Carbon Dioxide Anion Gap BUN Creatinine Est GFR (CKD-EPI)AfAm Est GFR (CKD-EPI)NonAf Random Glucose Calcium Magnesium Total Bilirubin AST ALT Alkaline Phosphatase Total Protein Albumin Cortisol AM Sample ACTH Urine Color Urine Appearance Urine pH Ur Specific [place] Urine Protein Urine Glucose (UA) Urine Ketones Urine Blood Urine Nitrite Urine Bilirubin Urine Urobilinogen Ur Leukocyte Esterase Urine WBC (Auto) Urine RBC (Auto) Urine Casts (Auto) U Pathogenic Cast Auto U Epithel Cells (Auto) Urine Bacteria (Auto) Stool Calprotectin Stool O & P Wet [place] Permanent Slide Active Medications Generic Name Dose Route Start Last Admin Trade Name Freq PRN Reason Stop Dose Admin Aspirin 81 mg 03/16/19 10:00 03/19/19 10:56 Asa - PO 81 mg DAILY [facility] Administration Calcium Carbonate 500 mg 03/17/19 10:00 03/19/19 10:17 Os-Gerard 500mg - PO 500 mg BID [facility] Administration Carbidopa/Levodopa 1 combo 03/16/19 07:00 03/19/19 11:43 Sinemet *Cr* 50/200 - PO 1 combo 0700,1200,1700 [facility] Administration Cholecalciferol 1,000 unit 03/16/19 10:00 03/19/19 10:17 Vitamin D3 - PO 1,000 unit DAILY [facility] Administration Finasteride 5 mg 03/19/19 22:00 Proscar - PO HS [facility] Heparin Sodium (Porcine) 5,000 unit 03/16/19 14:00 03/19/19 13:37 Heparin - SQ 5,000 unit TID [facility] Administration Hydrocortisone 25 mg 03/18/19 22:00 03/19/19 10:18 Cortef - PO 25 mg BID [facility] Administration Ceftriaxone Sodium 1 gm/ 50 mls @ 100 mls/hr 03/18/19 17:15 03/19/19 10:17 Dextrose IVPB 100 mls/hr DAILY [facility] Administration Protocol Levothyroxine Sodium 50 mcg 03/20/19 07:00 Synthroid - PO DAILY@0700 [facility] Potassium Chloride 20 meq 03/18/19 10:00 03/19/19 10:17 K-Dur - PO 20 meq DAILY [facility] Administration Quetiapine Fumarate 12.5 mg 03/16/19 17:27 Seroquel - PO DAILY PRN AGITATION Rosuvastatin Calcium 40 mg 03/20/19 10:00 Crestor - PO DAILY [facility] ASSESSMENT/PLAN: Titi Gary is a 79 year old male with a past medical history of Shy Dragers parkinson's disease, CAD (s/p quadruple bypass), pituitary tumor (s/p resection 1997),hypothyroidism (on synthroid 75mcg) who admitted with 1 week of AMS, diarrhea and falls. Presyncopal fall -> likely 2/2 Shy drager hx/dehydration/Iatrogenic Hyperthyroidism/UTI - CT head negative for acute intracranial hemmorhage, CT cervical spine- C4-5, C5-6 degenerative central canal stenosis with signs of fracture. CT hip/pelvis is pending. - IVF hydration stopped due to edema, patient strength and lethagy improvement - orthostatic vitals prior to fluids given negative - will decrease synthroid to 50mcg per Dr. Ferguson - Consult endo (Dr. Menjivar) for recs, spoken to today and recommended switching from IV Solu-cortef 100mg tid to hydrocortisone 25mg bid. Hold Florinef. - will need laboratory work outpatient to determine optimal dosing of pituitary hormone replacement - Seizure/Fall precautions implemented - PT eval, 140ft ambulation - echo showing EF 55-60%, moderately dilated left atrium, trace mitral and triscuspid regurg, mild aortic sclerosis - repeat EKG showing NSR, age indeterminate anterior infarct QTc 475 - UA + nitrites, 3+ LE, +bacteria, WBC, repeat UA + for infection - Ucx first contaminated, repeat showing group D strep/enteroccocus - restart ceftriaxone based on +UA and inability to void Diarrhea -> likely colitis/rule out c diff - CT Abd pelvis without contrast- no signs of colitis, diverticulitis, just diverticulosis. - ordered c diff, fecal calprotectin, stool c&s, ova and parasites negative PO on CKD - possibly due to recent trauma or hypophosphatemia 2/2 diarrhea and poor po intake - renal sono showing normal kidneys - Renal consulted (Dr. Correa) for PO on CKD recommendations. 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 - ACTH <1.1 (low) and AM cortisol 69.6 - nava catheter placed due to retention >900cc - urology consulted, recs appreciated - remove catheter after 48 hours as per urology, will attempt voiding trial tomorrow, has had long-term nava for retention in the past - tamsulosin not started due to concerns of orthostatic hypotension, will restart Proscar R Upper Extremity Swelling - DVT study of RUE Hypokalemia - continue potassium supplementation, today 3.7, continue to monitor - monitor K daily - repeat EKG with no acute changes - 20 MEq daily supplementation Parkinson's Disease - continue home Sinemet - neurology consulted, recs appreciated - Seroquel 12.5mg prn for agitation at night CAD hx - continue home aspirin and atorvastatin Hypothyroidism - decreased synthroid dose 50mcg due to decreased TSH, signifying iatrogenic hyperthyroidism - endocrine consult - will require outpatient f/u for thyroid function tests in 4-6 weeks after discharge FEN - no standing fluids, encourage PO intake - continue to monitor electrolytes and replete as necessary - sodium controlled diet DVT PPX - Heparin 5000 units subq TID Dispo - transfer to Med-surg - will decide with family whether patient will want to go to SNF or home with PT Visit type - Emergency Visit Emergency Visit: Yes ED Registration Date: 03/14/19 Care time: The patient presented to the Emergency Department on the above date and was hospitalized for further evaluation of their emergent condition. - New Patient This patient is new to me today: No - Critical Care Critical Care patient: No
--- NOTE | 2019-03-19 15:51 | PN ---
Progress Note, Physician History of Present Illness: Pt seen and examined at bedside. He is awake and appears comfortable. - Current Medication List Current Medications: Active Medications Aspirin (Asa -) 81 mg PO DAILY [facility] Last Admin: 03/19/19 10:56 Dose: 81 mg Calcium Carbonate (Os-Gerard 500mg -) 500 mg PO BID [facility] Last Admin: 03/19/19 10:17 Dose: 500 mg Carbidopa/Levodopa (Sinemet *Cr* 50/200 -) 1 combo PO 0700,1200,1700 [facility] Last Admin: 03/19/19 11:43 Dose: 1 combo Cholecalciferol (Vitamin D3 -) 1,000 unit PO DAILY [facility] Last Admin: 03/19/19 10:17 Dose: 1,000 unit Finasteride (Proscar -) 5 mg PO [facility] Heparin Sodium (Porcine) (Heparin -) 5,000 unit SQ TID [facility] Last Admin: 03/19/19 13:37 Dose: 5,000 unit Hydrocortisone (Cortef -) 25 mg PO BID [facility] Last Admin: 03/19/19 10:18 Dose: 25 mg Ceftriaxone Sodium 1 gm/ (Dextrose) 50 mls @ 100 mls/hr IVPB DAILY [facility]; Protocol Last Admin: 03/19/19 10:17 Dose: 100 mls/hr Levothyroxine Sodium (Synthroid -) 50 mcg PO DAILY@0700 [facility] Potassium Chloride (K-Dur -) 20 meq PO DAILY [facility] Last Admin: 03/19/19 10:17 Dose: 20 meq Quetiapine Fumarate (Seroquel -) 12.5 mg PO DAILY PRN PRN Reason: AGITATION Rosuvastatin Calcium (Crestor -) 10 mg PO [facility] - Objective Vital Signs: Vital Signs Temperature 98 F 03/19/19 14:00 Pulse Rate 78 03/19/19 14:00 Respiratory Rate 18 03/19/19 14:00 Blood Pressure 146/83 03/19/19 14:00 O2 Sat by Pulse Oximetry (%) 97 03/19/19 09:00 Constitutional: Yes: Calm Eyes: Yes: Conjunctiva Clear HENT: Yes: Atraumatic Neck: Yes: Supple Cardiovascular: Yes: S1, S2 Respiratory: Yes: CTA Bilaterally Gastrointestinal: Yes: Soft Genitourinary: Yes: Nava Present Musculoskeletal: Yes: WNL Edema: Yes Edema: LLE: 1+, RLE: 1+ Neurological: Yes: Oriented Psychiatric: Yes: Oriented Labs: CBC, BMP 03/19/19 06:35 03/19/19 06:35 INR, PTT INR 1.18 (0.83-1.09) H 03/14/19 15:00 Assessment/Plan Current Medications Generic Name Dose Route Start Last Admin Trade Name Freq PRN Reason Stop Dose Admin Aspirin 81 mg 03/16/19 10:00 03/19/19 10:56 Asa - PO 81 mg DAILY [facility] Administration Calcium Carbonate 500 mg 03/17/19 10:00 03/19/19 10:17 Os-Gerard 500mg - PO 500 mg BID [facility] Administration Carbidopa/Levodopa 1 combo 03/16/19 07:00 03/19/19 11:43 Sinemet *Cr* 50/200 - PO 1 combo 0700,1200,1700 [facility] Administration Cholecalciferol 1,000 unit 03/16/19 10:00 03/19/19 10:17 Vitamin D3 - PO 1,000 unit DAILY [facility] Administration Finasteride 5 mg 03/19/19 22:00 Proscar - PO HS [facility] Heparin Sodium (Porcine) 5,000 unit 03/16/19 14:00 03/19/19 13:37 Heparin - SQ 5,000 unit TID [facility] Administration Hydrocortisone 25 mg 03/18/19 22:00 03/19/19 10:18 Cortef - PO 25 mg BID [facility] Administration Ceftriaxone Sodium 1 gm/ 50 mls @ 100 mls/hr 03/18/19 17:15 03/19/19 10:17 Dextrose IVPB 100 mls/hr DAILY [facility] Administration Protocol Levothyroxine Sodium 50 mcg 03/20/19 07:00 Synthroid - PO DAILY@0700 [facility] Potassium Chloride 20 meq 03/18/19 10:00 03/19/19 10:17 K-Dur - PO 20 meq DAILY [facility] Administration Quetiapine Fumarate 12.5 mg 03/16/19 17:27 Seroquel - PO DAILY PRN AGITATION Rosuvastatin Calcium 10 mg 03/19/19 22:00 Crestor - PO HS [facility]AL[facility] Impression 1. PO 2. hypokalemia 3. s/p pituitary tumor resection 4. cad 5. hypotension 6. urinary retention Plan - nava in place - renal function is improving - repeat labs in am - follow urine eos - nava in place - bp is improving
[2019-03-19] MEDS ORDERED: ENOXAPARIN NA (PORCINE) 80 MG/0.8 ML DISP.SYRIN SQ SCH (18:15)
[2019-03-19] MEDS ORDERED: HEPARIN NA (PORCINE) 5,000 UNITS/ML 1ML VIAL IVPUSH PRN ×2 (18:18)
[2019-03-19] MEDS ORDERED: HEPARIN - 25,000 UNIT in SODIUM CHLORIDE 495 ML IV SCH (18:30)
[2019-03-19] MEDS: FINASTERIDE 5 MG TABLET (FP) PO SCH (21:17)
[2019-03-19] MEDS: ROSUVASTATIN CA 10 MG TABLET (FP) PO SCH (21:17)
[2019-03-20] MEDS ORDERED: PT OWN MED DRAWER 7, Y5N ONE ×4 (06:00→22:59)
[2019-03-20] MEDS: LEVOTHYROXINE NA 50 MCG TABLET (FP) PO SCH (06:09)
[2019-03-20 07:57] LABS: BASO % 0.1 % (0-2.0); EOS % 0.1 % (0-4.5); HEMATOCRIT 29.9 % (35.4-49); HEMOGLOBIN 10.1 GM/dL (11.7-16.9); LYMPH % 9.8 % (8-40); MCH 29.4 pg (25.7-33.7); MCHC 33.9 g/dl (32.0-35.9); MEAN CELL VOLUME 86.8 fl (80-96); MEAN PLT VOLUME 7.5 fl (7.5-11.1); MONO % 6.2 % (3.8-10.2); NEUT % 83.8 % (42.8-82.8); PLATELET COUNT 146 K/MM3 (134-434); RBC 3.45 M/mm3 (4.00-5.60); RDW 15.7 % (11.9-15.9); WHITE BLOOD COUNT 13.1 K/mm3 (4.0-10.0)
[2019-03-20 09:04] LABS: ALBUMIN 2.2 g/dl (3.4-5.0); BILIRUBIN,TOTAL 0.4 mg/dL (0.2-1); BLOOD UREA NITROGEN 33.1 mg/dL (7-18); CALCIUM 7.5 mg/dL (8.5-10.1); CREATININE 2.1 mg/dL (0.55-1.3); MAGNESIUM 1.7 mg/dL (1.8-2.4); POTASSIUM 3.6 mmol/L (3.5-5.1)
[2019-03-20] MEDS ORDERED: MAGNESIUM SULF 50% (8.12 MEQ/2 ML-1 GM VIAL) IVPB ONE ×2 (09:12→14:00)
[2019-03-20 09:23] LABS: ANISOCYTOSIS 1+; MACROCYTOSIS 0; PLATELET ESTIMATE DECREASED
[2019-03-20] MEDS ORDERED: cefTRIAXone SODIUM 1 GM VIAL ONE (09:28)
[2019-03-20] MEDS ORDERED: DEXTROSE 5%-WATER - 50 ML IVPB ONE (09:29)
[2019-03-20] MEDS ORDERED: ROSUVASTATIN CA 40 MG TABLET PO SCH (10:00)
[2019-03-20] MEDS: CHOLECALCIFEROL (VIT D3) 1,000 UNIT (25 MCG) TABLET PO SCH (10:08)
[2019-03-20] MEDS: POTASSIUM CHLORIDE TABS 20 MEQ TABLET.ER (FP) PO SCH (10:08)
[2019-03-20] MEDS: HYDROCORTISONE 10 MG TABLET PO SCH ×2 (10:08→22:56)
[2019-03-20] MEDS: ASPIRIN 81 MG CHEWABLE TABLETS PO SCH ×2 (10:08→12:15)
[2019-03-20] MEDS: CALCIUM (OYSTER SHELL) 500 MG TABLET (FP) PO SCH ×2 (10:08→21:54)
[2019-03-20] MEDS: CEFTRIAXONE 1 GM in DEXTROSE 5%-WATER - 50 ML IVPB SCH (10:09)
--- NOTE | 2019-03-20 10:31 | PN.GI ---
GI Progress Note Subjective: Pt seen/examined at bedside, sitting up, denies further diarrhea, denies abdominal pain, n/v. Tolerating diet. - Objective Vital Signs: Vital Signs Temperature 97.4 F L 03/20/19 10:00 Pulse Rate 61 03/20/19 10:00 Respiratory Rate 18 03/20/19 10:00 Blood Pressure 129/68 03/20/19 10:00 O2 Sat by Pulse Oximetry (%) 94 L 03/19/19 20:42 Constitutional: Well Nourished, No Distress, Calm Cardiovascular: Yes: WNL, Regular Rate and Rhythm Respiratory: Yes: WNL, Regular, CTA Bilaterally ...Palpate: Yes: Other (Abd soft, nt, nd) Labs: CBC, BMP 03/20/19 06:15 03/20/19 06:15 INR, PTT INR 1.18 (0.83-1.09) H 03/14/19 15:00 Problem List - Problems (1) Diarrhea Assessment/Plan: 79yo male h/o parkinsons disease, CAD s/p CABG, pituitary tumor s/p resection presenting with altered mentation and diarrhea. No further diarrhea. Stool c difficile and cultures negative. Please recall GI if any questions or if symptoms recur otherwise can follow up as outpt. Code(s): R19.7 - DIARRHEA, UNSPECIFIED
[2019-03-20] MEDS: APIXABAN 5 MG TABLET PO SCH ×2 (12:15→21:54)
--- NOTE | 2019-03-20 12:55 | PN ---
Teaching Attending Note Name of Resident: Wade Cruz ATTENDING PHYSICIAN STATEMENT I saw and evaluated the patient. I reviewed the resident's note and discussed the case with the resident. I agree with the resident's findings and plan as documented. SUBJECTIVE: No complaints. No chest pain/SOB/palpitations/lightheadedness. No further diarrhea. No abdominal pain/nausea/vomiting/fever/chills. OBJECTIVE: Afebrile, Hemodynamically Stable. Last Vital Signs Temp Pulse Resp BP Pulse Ox 97.4 F L 61 18 129/68 94 L 03/20/19 10:00 03/20/19 10:00 03/20/19 10:00 03/20/19 10:00 03/20/19 09:00 Lungs - clear to auscultation Abdomen - Soft, non-tender. Bowel Sounds normal. Extremtiies - bruised upper extremities, LE edema + Neuro - AAO x 3. Tone/Power normal. Laboratory Results - last 24 hr 03/16/19 03/17/19 03/20/19 10:00 12:30 02:17 WBC RBC Hgb Hct MCV MCH MCHC RDW Plt Count MPV Absolute Neuts (auto) Neutrophils % Neutrophils % (Manual) Band Neutrophils % Lymphocytes % Lymphocytes % (Manual) Monocytes % Monocytes % (Manual) Eosinophils % Eosinophils % (Manual) Basophils % Basophils % (Manual) Myelocytes % (Man) Promyelocytes % (Man) Blast Cells % (Manual) Nucleated RBC % Metamyelocytes Hypochromia Platelet Estimate Polychromasia Poikilocytosis Anisocytosis Microcytosis Macrocytosis PTT (Actin FS) 42.2 H Sodium Potassium Chloride Carbon Dioxide Anion Gap BUN Creatinine Est GFR (CKD-EPI)AfAm Est GFR (CKD-EPI)NonAf Random Glucose Calcium Magnesium Total Bilirubin AST ALT Alkaline Phosphatase Total Protein Albumin Stool Calprotectin 2376 H Stool O & P Wet [place] Permanent Slide Final report 03/20/19 03/20/19 03/20/19 06:15 06:15 11:04 WBC 13.1 H RBC 3.45 L Hgb 10.1 L Hct 29.9 L MCV 86.8 MCH 29.4 MCHC 33.9 RDW 15.7 Plt Count 146 D MPV 7.5 Absolute Neuts (auto) 11.0 H Neutrophils % 83.8 H Neutrophils % (Manual) 84.3 H Band Neutrophils % 0.0 Lymphocytes % 9.8 D Lymphocytes % (Manual) 7.8 L D Monocytes % 6.2 D Monocytes % (Manual) 2 L Eosinophils % 0.1 D Eosinophils % (Manual) 1.0 D Basophils % 0.1 Basophils % (Manual) 0.0 Myelocytes % (Man) 2 D Promyelocytes % (Man) 0 Blast Cells % (Manual) 0 Nucleated RBC % 0 Metamyelocytes 0 Hypochromia 1+ Platelet Estimate Decreased Polychromasia 0 Poikilocytosis 1+ Anisocytosis 1+ Microcytosis 1+ Macrocytosis 0 PTT (Actin FS) 71.7 H Sodium 140 Potassium 3.6 Chloride 106 Carbon Dioxide 28 Anion Gap 7 L BUN 33.1 H Creatinine 2.1 H Est GFR (CKD-EPI)AfAm 33.92 Est GFR (CKD-EPI)NonAf 29.27 Random Glucose 91 Calcium 7.5 L Magnesium 1.7 L Total Bilirubin 0.4 AST 42 H ALT 15 Alkaline Phosphatase 111 Total Protein 5.0 L Albumin 2.2 L Stool Calprotectin Stool O & P Wet [place] Permanent Slide Current Medications Generic Name Dose Route Start Last Admin Trade Name Freq PRN Reason Stop Dose Admin Apixaban 10 mg 03/20/19 12:00 03/20/19 12:15 Eliquis - PO 10 mg BID [facility] Administration Aspirin 81 mg 03/16/19 10:00 03/20/19 12:15 Asa - PO 81 mg DAILY [facility] Administration Calcium Carbonate 500 mg 03/17/19 10:00 03/20/19 10:08 Os-Gerard 500mg - PO 500 mg BID [facility] Administration Carbidopa/Levodopa 1 combo 03/16/19 07:00 03/20/19 12:53 Sinemet *Cr* 50/200 - PO 1 combo 0700,1200,1700 [facility] Administration Cholecalciferol 1,000 unit 03/16/19 10:00 03/20/19 10:08 Vitamin D3 - PO 1,000 unit DAILY [facility] Administration Finasteride 5 mg 03/19/19 22:00 03/19/19 21:17 Proscar - PO 5 mg HS [facility] Administration Hydrocortisone 25 mg 03/18/19 22:00 03/20/19 10:08 Cortef - PO 25 mg BID [facility] Administration Ceftriaxone Sodium 1 gm/ 50 mls @ 100 mls/hr 03/18/19 17:15 03/20/19 10:09 Dextrose IVPB 100 mls/hr DAILY [facility] Administration Protocol Levothyroxine Sodium 50 mcg 03/20/19 07:00 03/20/19 06:09 Synthroid - PO 50 mcg DAILY@0700 [facility] Administration Potassium Chloride 20 meq 03/18/19 10:00 03/20/19 10:08 K-Dur - PO 20 meq DAILY [facility] Administration Quetiapine Fumarate 12.5 mg 03/16/19 17:27 Seroquel - PO DAILY PRN AGITATION Rosuvastatin Calcium 10 mg 03/19/19 22:00 03/19/19 21:17 Crestor - PO 10 mg HS [facility] Administration Home Medications Medication Instructions Recorded Amlodipine Besylate 5 mg DAILY 03/14/19 Aspirin 81 mg DAILY 03/14/19 Carbidopa/Levodopa [Carbidopa-Levo 1 tab TID 03/14/19 ER 50-200 Tab] Cholecalciferol (Vitamin D3) 1,000 unit DAILY 03/14/19 [Vitamin D3] Finasteride 5 mg DAILY 03/14/19 Fludrocortisone Acetate 0.1 mg DAILY 03/14/19 Hydrocortisone 5 mg DAILY 03/14/19 Hydrocortisone 10 mg DAILY 03/14/19 Levothyroxine [Synthroid -] 75 mcg DAILY 03/14/19 Polyethylene Glycol 3350 17 gm DAILY 03/14/19 Rosuvastatin [Crestor -] 40 mg DAILY 03/14/19 Testosterone Cypionate 200 vial ASDIR 03/14/19 Ubidecarenone [Co Q-10] 30 mg DAILY 03/14/19 ASSESSMENT AND PLAN: 79 year old male with history of Parkinson Disease/Shy Drager Syndrome, Pituitary tumor (s/p resection), coronary artery disease (s/p CABG x4 vessels), hypothyroidism, HLD, HTN, BPH, presents with recurrent falls, poor oral intake, loose stool, and altered mental status. He was found to have severe electrolyte abnormalities including K 2.2 1. Acute Metabolic Encephalopathy likely sec to dehydration due to poor oral intake and reported diarrhea - resolved. AAO x [address] Brain negative for acute findings. Neurology consulted and recommended Quetiapine 12.5-25 mg QHS PRN for agitation/ sundowning. 2. Ambulatory Dysfunction/Falls - sec to above CT Head/C-Spine negative for acute findings. Echo - normal. PT eval Anthony eval appreciated for PD/Shy Drager's - recommend continuing Carbidopa/ Levodopa. 3. Severe Hypokalemia - sec to poor oral intake, GI losses, Florinef, Hydrocortizone (for Adrenal dysfunction s/p Hx pituitary tumor resection) Resolved - Oral and IV repletion PRN On fludrocortizone and Hydrocotizone s/p pituitary tumor resection - held as per Endocrinology in favor of IV Solucortef initially, now transitioned to oral Hydrocotisone. Futher steroid titration by Endocrinology as out-patient. 4. PO on CKD - Creat much improved. Renal US - no obstruction Nephrology to follow as out-patient. 5. Diarrhea - resolved. Cdiff/Stool Cx negative. CT A/P - Prostate enlargement, Diverticulosis, bibasilar atelectasis. 6. DVT LLE - Extensive - transition from Heparin drip to Eliquis prior to discharge. 7. Hypothyroidism, on Synthroid - TSH low at 0.29. Synthroid dose reduced to 50mcg. Endocrinology consulted. 8. Coronary artery disease (s/p CABG x4 vessels) - continue ASA. resume Statin on discharge. 9. HLD - on Statin. To be resumed on discharge. 9. HTN - Norvasc held due to peripheral vasodilatory effect and possible contribution to orthostasis/syncope/falls. 10. Urinary retention secondary to BPH - Proscar initially held by Endocrinology - now resumed. For TOV today prior to discharge. Evaluated by Urology Medically optimized for discharge with Nephrology, Endocrinology, PCP, Urology follow up. Needs repeat TSH in 4-6 weeks.
--- NOTE | 2019-03-20 13:06 | PN ---
Progress Note, Physician History of Present Illness: Pt seen and examined at bedside. He is awake and alert. he denies shortness of breath. - Current Medication List Current Medications: Active Medications Apixaban (Eliquis -) 10 mg PO BID [facility] Last Admin: 03/20/19 12:15 Dose: 10 mg Aspirin (Asa -) 81 mg PO DAILY [facility] Last Admin: 03/20/19 12:15 Dose: 81 mg Calcium Carbonate (Os-Gerard 500mg -) 500 mg PO BID [facility] Last Admin: 03/20/19 10:08 Dose: 500 mg Carbidopa/Levodopa (Sinemet *Cr* 50/200 -) 1 combo PO 0700,1200,1700 [facility] Last Admin: 03/20/19 12:53 Dose: 1 combo Cholecalciferol (Vitamin D3 -) 1,000 unit PO DAILY [facility] Last Admin: 03/20/19 10:08 Dose: 1,000 unit Finasteride (Proscar -) 5 mg PO HS [facility] Last Admin: 03/19/19 21:17 Dose: 5 mg Hydrocortisone (Cortef -) 25 mg PO BID [facility] Last Admin: 03/20/19 10:08 Dose: 25 mg Ceftriaxone Sodium 1 gm/ (Dextrose) 50 mls @ 100 mls/hr IVPB DAILY [facility]; Protocol Last Admin: 03/20/19 10:09 Dose: 100 mls/hr Levothyroxine Sodium (Synthroid -) 50 mcg PO DAILY@0700 [facility] Last Admin: 03/20/19 06:09 Dose: 50 mcg Potassium Chloride (K-Dur -) 20 meq PO DAILY [facility] Last Admin: 03/20/19 10:08 Dose: 20 meq Quetiapine Fumarate (Seroquel -) 12.5 mg PO DAILY PRN PRN Reason: AGITATION Rosuvastatin Calcium (Crestor -) 10 mg PO HS [facility] Last Admin: 03/19/19 21:17 Dose: 10 mg - Objective Vital Signs: Vital Signs Temperature 97.4 F L 03/20/19 10:00 Pulse Rate 61 03/20/19 10:00 Respiratory Rate 18 03/20/19 10:00 Blood Pressure 129/68 03/20/19 10:00 O2 Sat by Pulse Oximetry (%) 94 L 03/20/19 09:00 Constitutional: Yes: Calm Eyes: Yes: Conjunctiva Clear HENT: Yes: Atraumatic Neck: Yes: Supple Cardiovascular: Yes: S1, S2 Respiratory: Yes: CTA Bilaterally Gastrointestinal: Yes: Soft Genitourinary: Yes: WNL Edema: Yes Edema: LLE: 1+, RLE: 1+ Neurological: Yes: Oriented Psychiatric: Yes: Oriented Labs: CBC, BMP 03/20/19 06:15 03/20/19 06:15 INR, PTT INR 1.18 (0.83-1.09) H 03/14/19 15:00 Assessment/Plan Current Medications Generic Name Dose Route Start Last Admin Trade Name Freq PRN Reason Stop Dose Admin Apixaban 10 mg 03/20/19 12:00 03/20/19 12:15 Eliquis - PO 10 mg BID [facility] Administration Aspirin 81 mg 03/16/19 10:00 03/20/19 12:15 Asa - PO 81 mg DAILY [facility] Administration Calcium Carbonate 500 mg 03/17/19 10:00 03/20/19 10:08 Os-Gerard 500mg - PO 500 mg BID [facility] Administration Carbidopa/Levodopa 1 combo 03/16/19 07:00 03/20/19 12:53 Sinemet *Cr* 50/200 - PO 1 combo 0700,1200,1700 [facility] Administration Cholecalciferol 1,000 unit 03/16/19 10:00 03/20/19 10:08 Vitamin D3 - PO 1,000 unit DAILY [facility] Administration Finasteride 5 mg 03/19/19 22:00 03/19/19 21:17 Proscar - PO 5 mg HS [facility] Administration Hydrocortisone 25 mg 03/18/19 22:00 03/20/19 10:08 Cortef - PO 25 mg BID [facility] Administration Ceftriaxone Sodium 1 gm/ 50 mls @ 100 mls/hr 03/18/19 17:15 03/20/19 10:09 Dextrose IVPB 100 mls/hr DAILY [facility] Administration Protocol Levothyroxine Sodium 50 mcg 03/20/19 07:00 03/20/19 06:09 Synthroid - PO 50 mcg DAILY@0700 [facility] Administration Potassium Chloride 20 meq 03/18/19 10:00 03/20/19 10:08 K-Dur - PO 20 meq DAILY [facility] Administration Quetiapine Fumarate 12.5 mg 03/16/19 17:27 Seroquel - PO DAILY PRN AGITATION Rosuvastatin Calcium 10 mg 03/19/19 22:00 03/19/19 21:17 Crestor - PO 10 mg HS [facility] Administration Impression 1. PO 2. hypokalemia 3. s/p pituitary tumor resection 4. cad 5. hypotension 6. urinary retention Plan - pt on voiding trial - renal function is improving - potassium stable - bp stable - will need outpt workup - follow urine eos
--- NOTE | 2019-03-20 14:59 | PN ---
Progress Note (short form) - Note Progress Note: Chief Complaint: no CP, SOB, palps dizzy OFF TELE Current Medications Generic Name Dose Route Start Last Admin Trade Name Freq PRN Reason Stop Dose Admin Apixaban 10 mg 03/20/19 12:00 03/20/19 12:15 Eliquis - PO 10 mg BID [facility] Administration Aspirin 81 mg 03/16/19 10:00 03/20/19 12:15 Asa - PO 81 mg DAILY [facility] Administration Calcium Carbonate 500 mg 03/17/19 10:00 03/20/19 10:08 Os-Gerard 500mg - PO 500 mg BID [facility] Administration Carbidopa/Levodopa 1 combo 03/16/19 07:00 03/20/19 12:53 Sinemet *Cr* 50/200 - PO 1 combo 0700,1200,1700 [facility] Administration Cholecalciferol 1,000 unit 03/16/19 10:00 03/20/19 10:08 Vitamin D3 - PO 1,000 unit DAILY [facility] Administration Finasteride 5 mg 03/19/19 22:00 03/19/19 21:17 Proscar - PO 5 mg HS [facility] Administration Hydrocortisone 25 mg 03/18/19 22:00 03/20/19 10:08 Cortef - PO 25 mg BID [facility] Administration Ceftriaxone Sodium 1 gm/ 50 mls @ 100 mls/hr 03/18/19 17:15 03/20/19 10:09 Dextrose IVPB 100 mls/hr DAILY [facility] Administration Protocol Levothyroxine Sodium 50 mcg 03/20/19 07:00 03/20/19 06:09 Synthroid - PO 50 mcg DAILY@0700 [facility] Administration Potassium Chloride 20 meq 03/18/19 10:00 03/20/19 10:08 K-Dur - PO 20 meq DAILY [facility] Administration Quetiapine Fumarate 12.5 mg 03/16/19 17:27 Seroquel - PO DAILY PRN AGITATION Rosuvastatin Calcium 10 mg 03/19/19 22:00 03/19/19 21:17 Crestor - PO 10 mg HS [facility] Administration - Objective Vital Signs: Vital Signs Period Temp Pulse Resp BP Sys/Miguel Pulse Ox Last 24 Hr 97.4 F-98.3 F 61-81 18-18 129-149/68-83 94-95 Constitutional: Yes: No Distress Cardiovascular: Yes: Regular Rate and Rhythm Respiratory: Yes: CTA Bilaterally Gastrointestinal: Yes: Soft Edema: Yes Edema: LLE: 1+, RLE: 1+ Neurological: Yes: Alert, no jaundice diaphoresis Labs: CBC, BMP 03/20/19 06:15 03/20/19 06:15 IMP: Resolving Hypokalemia Acute on chronic renal failure Virginie salcedo Parkinson's disease CAD (s/p quadruple bypass) Pituitary tumor (s/p resection 1997) Hypothyroidism AMS Diarrhea Falls Hypoalbuminemia REC: 1. Continued adjustment/regulation of steroids as per Endo 2. Renal following: K+ improved. bun/creat remain up--per renal team 3. Agree with holding Amlodipine. Vasodilatory effect may contribute to orthostatic BP changes leading to falls. Patient has underlying PD with autonomic dysfx on that basis. Thus would minimize use of any vasodilatory meds that are not required. 4. CAD chronic/stable with recent echo showing normal LVEF and no sig valve disease. No arrhythmias on tele to explain falls. Pt is followed closely by outside rock dust sprayer at [facility]. 5. Further w/u of diarrhea as per primary team and GI. 6. Edema likely to 3rd spacing, low albumin; also found to have left le DVT, now on ac
[2019-03-20] MEDS: LACTOBACILLUS ACIDOPHILUS 1 TABLET PO SCH (17:16)
--- NOTE | 2019-03-20 17:36 | DS ---
Physical Exam: SUBJECTIVE: Patient seen and examined at the bedside. Patient stated that he is doing well and denies any complaints of chest pain, shortness of breath, abd pain, n/v/c/d, hematuria, headaches, dizziness, lightheadedness, fever, chills. Endorses good appetite. OBJECTIVE: Vital Signs Period Temp Pulse Resp BP Sys/Miguel Pulse Ox Last 24 Hr 97.4 F-98.3 F 61-81 18-18 129-149/68-83 94-95 PHYSICAL EXAM GENERAL: Awake, alert, and fully oriented, in no acute distress. HEAD: Normal with no signs of trauma. ENT: Moist mucous membranes LUNGS: Breath sounds equal, clear to auscultation bilaterally. No wheezes, and no crackles. No accessory muscle use. HEART: Regular rate and rhythm, normal S1 and S2 without murmur, rub. ABDOMEN: Soft, nontender, not distended, normoactive bowel sounds, no guarding, no rebound, no masses. UPPER EXTREMITIES: 2+ pulses, warm, well-perfused. No cyanosis. No clubbing. No peripheral edema. LOWER EXTREMITIES: 2+ pulses, warm, well-perfused. No calf tenderness. 2+ peripheral edema. NEUROLOGICAL: Cranial nerves II-XII intact. 4/5 UE against resistance, able to lift legs on passive ROM (4/5), normal sensation. Cogwheeling present in L arm. Unable to perform rapid movements. PSYCHIATRIC: Cooperative. Good eye contact. Appropriate mood and affect. SKIN: Warm, dry, ecchymosis on bilateral arms. LABS Laboratory Results - last 24 hr 03/18/19 03/20/19 03/20/19 15:04 02:17 06:15 WBC 13.1 H RBC 3.45 L Hgb 10.1 L Hct 29.9 L MCV 86.8 MCH 29.4 MCHC 33.9 RDW 15.7 Plt Count 146 D MPV 7.5 Absolute Neuts (auto) 11.0 H Neutrophils % 83.8 H Neutrophils % (Manual) 84.3 H Band Neutrophils % 0.0 Lymphocytes % 9.8 D Lymphocytes % (Manual) 7.8 L D Monocytes % 6.2 D Monocytes % (Manual) 2 L Eosinophils % 0.1 D Eosinophils % (Manual) 1.0 D Basophils % 0.1 Basophils % (Manual) 0.0 Myelocytes % (Man) 2 D Promyelocytes % (Man) 0 Blast Cells % (Manual) 0 Nucleated RBC % 0 Metamyelocytes 0 Hypochromia 1+ Platelet Estimate Decreased Polychromasia 0 Poikilocytosis 1+ Anisocytosis 1+ Microcytosis 1+ Macrocytosis 0 PTT (Actin FS) 42.2 H Sodium Potassium Chloride Carbon Dioxide Anion Gap BUN Creatinine Est GFR (CKD-EPI)AfAm Est GFR (CKD-EPI)NonAf Random Glucose Calcium Magnesium Total Bilirubin AST ALT Alkaline Phosphatase Total Protein Albumin Urine Eosinophils Rare 03/20/19 03/20/19 06:15 11:04 WBC RBC Hgb Hct MCV MCH MCHC RDW Plt Count MPV Absolute Neuts (auto) Neutrophils % Neutrophils % (Manual) Band Neutrophils % Lymphocytes % Lymphocytes % (Manual) Monocytes % Monocytes % (Manual) Eosinophils % Eosinophils % (Manual) Basophils % Basophils % (Manual) Myelocytes % (Man) Promyelocytes % (Man) Blast Cells % (Manual) Nucleated RBC % Metamyelocytes Hypochromia Platelet Estimate Polychromasia Poikilocytosis Anisocytosis Microcytosis Macrocytosis PTT (Actin FS) 71.7 H Sodium 140 Potassium 3.6 Chloride 106 Carbon Dioxide 28 Anion Gap 7 L BUN 33.1 H Creatinine 2.1 H Est GFR (CKD-EPI)AfAm 33.92 Est GFR (CKD-EPI)NonAf 29.27 Random Glucose 91 Calcium 7.5 L Magnesium 1.7 L Total Bilirubin 0.4 AST 42 H ALT 15 Alkaline Phosphatase 111 Total Protein 5.0 L Albumin 2.2 L Urine Eosinophils HOSPITAL COURSE: Titi Gary is a 79 year old male with a past medical history of Shy Dragers parkinson's disease, CAD (s/p quadruple bypass), pituitary tumor (s/p resection 1997), hypothyroidism (on synthroid 75mcg) who admitted with 1 week of AMS, diarrhea and falls. Patient's diarrhea had improved by discharge. Was negative for infection, c diff in stool. Diarrhea likely due to recent antibiotic use. CT of the abdomen and pelvis did no show Patient did have positive UA, first culture was contaminated, second culture had less than 40k bacteria and patient had completed antibiotics while hospitalized. Will not need outpatient antibiotics. Patient to follow up with outpatient gastroenterology and urology. Here patient was found with severe hypokalemia which was actively repleted. Nephrology was consulted which advised continued repletion and adjustment of patient's hydrocortisone as per endocrine. Patient had renal function decrease from baseline and was improving by discharge likely due to retention and patient had difficulty voiding secondary to BPH. Nava catheter was placed for patient to drain urine and renal function was improving. Patient was restarted on Proscar for urinary retention. Patient will require laboratory work to assess kidney function and electrolytes on MondayMarch 22. By day of discharge, patient's hypokalemia had improved and patient was started on potassium supplementation. Patient to follow up with nephrology and endocrinology outpatient. Additionally, patient will leave with nava catheter due to continued retention and will need to follow up with urology outpatient for continued care of nava catheter. Endocrinology saw patient and amended hydrocortisone dosing to 25mg bid and stopped Florinef. Due to decreased TSH and diarrhea episodes, levothyroxine was decreased to 50mcg daily. Patient was instructed to follow up with endorcinology outpatient. Will need outpatient thyroid function testing with endocrinology in 2-4 weeks. Patient was seen by neurology for continued treatment of Shy Drager and was advised to continue on Sinemet daily and add Seroquel 12.5mg as needed for agitation and to follow up with neurology outpatient. Before discharge, patient had duplex study of the legs and was found to have extensive DVT in the L popliteal vein and superficial femoral vein and was started on heparin drip which was transitioned to Eliquis which the patient will continue on outpatient. Patient was seen by physical therapy and was able to walk 140 feet and would benefit from home health care social worker and services. Patient is to be discharged on decreased synthroid dose to 50mcg, hydrocortisone 25mg bid, Eliquis 10mg bid for 7 days and 5mg bid afterwards, potassium supplementation, calcium supplementation, Bacid, Seroquel prn. He is to follow up with his primary care provider, oyster washer, urologist, sifter operator, neurologist, gastroenterology, cardiology. Patient and family were spoken and were in agreement with the plan and reiterated it. Patient was discharged in stable medical condition. 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 You were also found to have low potassium. You were given potassium while you were in the hospital. Your medication regimen of hydrocortisone, fludrocortisone, and levothyroxine was changed while you were in the hospital. You were seen by the oyster washer ( hormone doctor) who recommended changing your hydrocortisone dose and stopping the fludrocortisone. You had a head CT scan and cervical spine CT which did not show any new findings. You were seen by the neurologist (brain doctor) who recommended that you continued taking your Sinemet and recommended to take Seroquel as needed for any agitation at night. Your diarrhea resolved while you were in the hospital and did not show any infection while you were here. You were seen by a core placer who recommended to follow up in the outpatient clinic. You had a scan of your leg which found a clot in your left leg. You were started on a blood thinner medication to treat the clot. MEDICATIONS STOP taking Florinef. STOP taking amlodipine. START taking hydrocortisone 25mg twice a day. Take 1 20mg tablet and 1 5mg tablet twice a day. Johnson your levothyroxine dose to 50mcg daily in the morning. START taking Eliquis 10mg twice a day for 7 days. Your last dose will be on March 26. Afterwards START taking Eliquis 5mg twice a day. Follow up with your primary care doctor for continued management of the clot you have in your leg. START taking potassium chloride 20Meq once daily. START taking Calcium supplementation once daily. START taking Seroquel 12.5mg at night if needed for any agitation. START taking Bacid, 1 pill daily. Continue taking all of your other home medications as prescribed. REFERRALS Please follow up with your primary care provider, Dr. Elsa Forrester, within 1 week. Please follow up with the urologist, Dr. Wade Collado, within 1 week. Please follow up with your sifter operator, Dr. Kelly Correa, within 1 week. Please follow up with your neurologist, Dr. Tj Arndt, within 1 week. Please follow up with the core placer, Dr. Elsa Mckeon, within 1 week. Please follow up with the oyster washer, Dr. Sushil Ferguson, within 1 week. SPECIAL INSTRUCTIONS Be careful standing up and walking around while you are on the blood thinner medication to prevent falls. Use you walker or other assistive device when you are walking around. You will need laboratory testing on MondayMarch 22, to assess your kidney function and potassium levels in your blood. If your nava catheter is clogged, your visiting nurse or aide may flush the catheter to maintain flow. If the nava catheter becomes dislodged or is removed , nava catheter may be replaced. Please follow up with you urologist, for continued care of your nava catheter. If you have any symptoms of chest pain, shortness of breath, fever, worsening diarrhea, bloody bowel movements, dizziness, lightheadedness, weakness, inability to walk or other general feelings of unwellness, please call 911 or go to your nearest emergency room Referrals: Tj Arndt MD [Staff Physician] - 1 Week Wade Collado MD [Staff Physician] - 1 Week Barrera Javier MD [Staff Physician] - 1 Week Elsa Mckeon DO [Staff Physician] - 1 Week Elsa Forrester MD [Non Staff, Medical] - 1 Week Sushil Ferguson MD [Staff Physician] - 1 Week Kelly Correa MD [Staff Physician] - 1 Week Disposition: HOME - Home Medications Comprehensive Discharge Medication List: Ambulatory Orders Amlodipine Besylate 5 mg DAILY 03/14/19 Aspirin 81 mg DAILY 03/14/19 Carbidopa/Levodopa [Carbidopa-Levo ER 50-200 Tab] 1 tab TID 03/14/19 Cholecalciferol (Vitamin D3) [Vitamin D3] 1,000 unit DAILY 03/14/19 Finasteride 5 mg DAILY 03/14/19 Polyethylene Glycol 3350 17 gm DAILY 03/14/19 Rosuvastatin [Crestor -] 40 mg DAILY 03/14/19 Testosterone Cypionate 200 vial ASDIR 03/14/19 Ubidecarenone [Co Q-10] 30 mg DAILY 03/14/19 Apixaban [Eliquis -] 10 mg PO BID #70 tablet 03/20/19 Calcium (Oyster Shell) [Os-Gerard 500MG -] 500 mg PO BID #30 tablet 03/20/19 Hydrocortisone [Cortef -] 5 mg PO DAILY #60 tablet 03/20/19 Hydrocortisone [Cortef -] 20 mg PO DAILY #60 tablet 03/20/19 Lactobacillus Acidophilus [Bacid -] 1 tab PO DAILY #30 tab 03/20/19 Levothyroxine [Synthroid -] 50 mcg PO DAILY@0700 #30 tablet 03/20/19 Potassium Chloride [K-Dur -] 20 meq PO DAILY #30 tablet.er 03/20/19 Quetiapine Fumarate [Seroquel -] 12.5 mg PO HS PRN #30 tablet 03/20/19 Problem List - Problems (1) Central hypothyroidism Code(s): E03.8 - OTHER SPECIFIED HYPOTHYROIDISM (2) Falls frequently Code(s): R29.6 - REPEATED FALLS (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 Code(s): E89.3 - POSTPROCEDURAL HYPOPITUITARISM (4) Urinary retention Code(s): R33.9 - RETENTION OF URINE, UNSPECIFIED (5) Altered mental status Code(s): R41.82 - ALTERED MENTAL STATUS, UNSPECIFIED Qualifiers: Altered mental status type: unspecified Qualified Code(s): R41.82 - Altered mental status, unspecified (6) Diarrhea Code(s): R19.7 - DIARRHEA, UNSPECIFIED (7) Hypokalemia Code(s): E87.6 - HYPOKALEMIA This patient is new to me today: No Emergency Visit: Yes ED Registration Date: 03/14/19 Care time: The patient presented to the Emergency Department on the above date and was hospitalized for further evaluation of their emergent condition. Critical Care patient: No - Discharge Referral Referred to [facility] Med [facility].C.: No
[2019-03-20] MEDS: FINASTERIDE 5 MG TABLET (FP) PO SCH (21:54)
[2019-03-20] MEDS: ROSUVASTATIN CA 10 MG TABLET (FP) PO SCH (21:54)
--- NOTE | 2019-03-20 23:44 | PN ---
Progress Note, Physician Chief Complaint: comfortable no complaint,recent dvt event pt concerned - Current Medication List Current Medications: Active Medications Apixaban (Eliquis -) 10 mg PO BID [facility] Last Admin: 03/20/19 21:54 Dose: 10 mg Aspirin (Asa -) 81 mg PO DAILY [facility] Last Admin: 03/20/19 12:15 Dose: 81 mg Calcium Carbonate (Os-Gerard 500mg -) 500 mg PO BID [facility] Last Admin: 03/20/19 21:54 Dose: 500 mg Carbidopa/Levodopa (Sinemet *Cr* 50/200 -) 1 combo PO 0700,1200,1700 [facility] Last Admin: 03/20/19 17:16 Dose: 1 combo Cholecalciferol (Vitamin D3 -) 1,000 unit PO DAILY [facility] Last Admin: 03/20/19 10:08 Dose: 1,000 unit Finasteride (Proscar -) 5 mg PO HS [facility] Last Admin: 03/20/19 21:54 Dose: 5 mg Hydrocortisone (Cortef -) 25 mg PO BID [facility] Last Admin: 03/20/19 22:56 Dose: 25 mg Ceftriaxone Sodium 1 gm/ (Dextrose) 50 mls @ 100 mls/hr IVPB DAILY [facility]; Protocol Last Admin: 03/20/19 10:09 Dose: 100 mls/hr Lactobacillus Acidophilus (Bacid -) 1 tab PO DAILY [facility] Last Admin: 03/20/19 17:16 Dose: 1 tab Levothyroxine Sodium (Synthroid -) 50 mcg PO DAILY@0700 [facility] Last Admin: 03/20/19 06:09 Dose: 50 mcg Potassium Chloride (K-Dur -) 20 meq PO DAILY [facility] Last Admin: 03/20/19 10:08 Dose: 20 meq Quetiapine Fumarate (Seroquel -) 12.5 mg PO DAILY PRN PRN Reason: AGITATION Rosuvastatin Calcium (Crestor -) 10 mg PO HS [facility] Last Admin: 03/20/19 21:54 Dose: 10 mg - Objective Vital Signs: Vital Signs Temperature 97.4 F L 03/20/19 23:00 Pulse Rate 62 03/20/19 23:00 Respiratory Rate 20 03/20/19 23:00 Blood Pressure 142/79 03/20/19 23:00 O2 Sat by Pulse Oximetry (%) 95 03/20/19 21:00 Constitutional: Yes: Calm Eyes: Yes: EOM Intact HENT: Yes: Normocephalic Neck: Yes: Trachea Midline Cardiovascular: Yes: Regular Rate and Rhythm Respiratory: Yes: CTA Bilaterally Gastrointestinal: Yes: Normal Bowel Sounds ...Rectal Exam: Yes: Deferred Genitourinary: Yes: WNL Breast(s): Yes: WNL Musculoskeletal: Yes: Back Pain, Joint Swelling, Muscle Pain, Muscle Weakness Extremities: Yes: Calf Tenderness, Pallor Edema: Yes Edema: LLE: 2+, RLE: 1+ Neurological: Yes: Alert, Oriented Labs: CBC, BMP 03/20/19 06:15 03/20/19 06:15 INR, PTT INR 1.18 (0.83-1.09) H 03/14/19 15:00 Problem List - Problems (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 Problems reviewed: Yes Code(s): E89.3 - POSTPROCEDURAL HYPOPITUITARISM (2) Hypokalemia Problems reviewed: Yes Code(s): E87.6 - HYPOKALEMIA (3) Central hypothyroidism Problems reviewed: Yes Code(s): E03.8 - OTHER SPECIFIED HYPOTHYROIDISM Assessment/Plan Current Active Problems Central hypothyroidism (Chronic) Falls frequently (Chronic) 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) Urinary retention (Chronic) dvt left leg Abnormal Lab Results 03/20/19 03/20/19 03/20/19 02:17 06:15 06:15 WBC 13.1 H RBC 3.45 L Hgb 10.1 L Hct 29.9 L Absolute Neuts (auto) 11.0 H Neutrophils % 83.8 H Neutrophils % (Manual) 84.3 H Lymphocytes % (Manual) 7.8 L D Monocytes % (Manual) 2 L PTT (Actin FS) 42.2 H Anion Gap 7 L BUN 33.1 H Creatinine 2.1 H Calcium 7.5 L Magnesium 1.7 L AST 42 H Total Protein 5.0 L Albumin 2.2 L 03/20/19 11:04 WBC RBC Hgb Hct Absolute Neuts (auto) Neutrophils % Neutrophils % (Manual) Lymphocytes % (Manual) Monocytes % (Manual) PTT (Actin FS) 71.7 H Anion Gap BUN Creatinine Calcium Magnesium AST Total Protein Albumin plan: continue cortef 25mg bid taper to 20mg bid gradual taper by 5mg bid every 4th day till reach 25mg daily continue synthroid 50mcg follow free t4 and total t3 to normalize free t4
[2019-03-21] MEDS ORDERED: PT OWN MED DRAWER 7, Y5N ONE ×4 (05:55→21:05)
[2019-03-21] MEDS: LEVOTHYROXINE NA 50 MCG TABLET (FP) PO SCH (05:59)
[2019-03-21 06:30] LABS: HEMATOCRIT 29.8 % (35.4-49); HEMOGLOBIN 10.3 GM/dL (11.7-16.9); MCH 29.9 pg (25.7-33.7); MCHC 34.4 g/dl (32.0-35.9); MEAN CELL VOLUME 86.9 fl (80-96); MEAN PLT VOLUME 7.3 fl (7.5-11.1); PLATELET COUNT 126 K/MM3 (134-434); RBC 3.43 M/mm3 (4.00-5.60); RDW 15.6 % (11.9-15.9); WHITE BLOOD COUNT 13.6 K/mm3 (4.0-10.0)
[2019-03-21 07:06] LABS: BLOOD UREA NITROGEN 31.3 mg/dL (7-18); CALCIUM 7.6 mg/dL (8.5-10.1); CREATININE 1.8 mg/dL (0.55-1.3); POTASSIUM 3.6 mmol/L (3.5-5.1)
[2019-03-21] MEDS ORDERED: CEFTRIAXONE 1 GM in DEXTROSE 5%-WATER - 50 ML IVPB ONE (10:00)
[2019-03-21] MEDS ORDERED: DEXTROSE 5%-WATER - 50 ML IVPB ONE (10:40)
[2019-03-21] MEDS ORDERED: cefTRIAXone SODIUM 1 GM VIAL ONE (10:40)
[2019-03-21] MEDS: ASPIRIN 81 MG CHEWABLE TABLETS PO SCH (11:36)
[2019-03-21] MEDS: APIXABAN 5 MG TABLET PO SCH ×2 (11:36→21:17)
[2019-03-21] MEDS: CHOLECALCIFEROL (VIT D3) 1,000 UNIT (25 MCG) TABLET PO SCH (11:36)
[2019-03-21] MEDS: LACTOBACILLUS ACIDOPHILUS 1 TABLET PO SCH (11:36)
[2019-03-21] MEDS: POTASSIUM CHLORIDE TABS 20 MEQ TABLET.ER (FP) PO SCH (11:36)
[2019-03-21] MEDS: CALCIUM (OYSTER SHELL) 500 MG TABLET (FP) PO SCH ×2 (11:36→21:18)
[2019-03-21] MEDS: HYDROCORTISONE 10 MG TABLET PO SCH (11:44)
--- NOTE | 2019-03-21 12:14 | PN ---
Progress Note (short form) - Note Progress Note: Chief Complaint: no CP, SOB, palps dizzy OFF TELE Current Medications Generic Name Dose Route Start Last Admin Trade Name Jose Eq PRN Reason Stop Dose Admin Apixaban 10 mg 03/20/19 12:00 03/21/19 11:36 Eliquis - PO 10 mg BID [facility] Administration Aspirin 81 mg 03/16/19 10:00 03/21/19 11:36 Asa - PO 81 mg DAILY [facility] Administration Calcium Carbonate 500 mg 03/17/19 10:00 03/21/19 11:36 Os-Gerard 500mg - PO 500 mg BID [facility] Administration Carbidopa/Levodopa 1 combo 03/16/19 07:00 03/21/19 11:45 Sinemet *Cr* 50/200 - PO 1 combo 0700,1200,1700 [facility] Administration Cholecalciferol 1,000 unit 03/16/19 10:00 03/21/19 11:36 Vitamin D3 - PO 1,000 unit DAILY [facility] Administration Finasteride 5 mg 03/19/19 22:00 03/20/19 21:54 Proscar - PO 5 mg HS [facility] Administration Hydrocortisone 25 mg 03/18/19 22:00 03/21/19 11:44 Cortef - PO 25 mg BID [facility] Administration Lactobacillus Acidophilus 1 tab 03/20/19 16:01 03/21/19 11:36 Bacid - PO 1 tab DAILY [facility] Administration Levothyroxine Sodium 50 mcg 03/20/19 07:00 03/21/19 05:59 Synthroid - PO 50 mcg DAILY@0700 [facility] Administration Potassium Chloride 20 meq 03/18/19 10:00 03/21/19 11:36 K-Dur - PO 20 meq DAILY [facility] Administration Quetiapine Fumarate 12.5 mg 03/16/19 17:27 Seroquel - PO DAILY PRN AGITATION Rosuvastatin Calcium 10 mg 03/19/19 22:00 03/20/19 21:54 Crestor - PO 10 mg HS [facility] Administration Vital Signs Period Temp Pulse Resp BP Sys/Miguel Pulse Ox Last 24 Hr 97.4 F-98.2 F 59-70 18-20 116-146/60-85 95-95 Constitutional: Yes: No Distress Cardiovascular: Yes: Regular Rate and Rhythm Respiratory: Yes: CTA Bilaterally Gastrointestinal: Yes: Soft Edema: Yes Edema: LLE: 1+, RLE: 1+ Neurological: Yes: Alert, no jaundice diaphoresis Labs: CBC, BMP 03/21/19 05:30 03/21/19 05:30 IMP: Resolving Hypokalemia Acute on chronic renal failure Virginie salcedo Parkinson's disease CAD (s/p quadruple bypass) Pituitary tumor (s/p resection 1997) Hypothyroidism AMS Diarrhea Falls Hypoalbuminemia REC: 1. Continued adjustment/regulation of steroids as per Endo 2. Renal following: K+ improved. bun/creat remain up--per renal team 3. Agree with holding Amlodipine. Vasodilatory effect may contribute to orthostatic BP changes leading to falls. Patient has underlying PD with autonomic dysfx on that basis. Thus would minimize use of any vasodilatory meds that are not required. 4. CAD chronic/stable with recent echo showing normal LVEF and no sig valve disease. No arrhythmias on tele to explain falls. Pt is followed closely by outside electrical troubleshooter at [facility]. 5. Further w/u of diarrhea as per primary team and GI. 6. Edema likely to 3rd spacing, low albumin; also found to have left le DVT, now on ac
--- NOTE | 2019-03-21 16:45 | PN ---
Progress Note, Physician History of Present Illness: Pt seen and examined at bedside. He has the nava in as he did not tolerate the voiding trial. - Current Medication List Current Medications: Active Medications Apixaban (Eliquis -) 10 mg PO BID [facility] Last Admin: 03/21/19 11:36 Dose: 10 mg Aspirin (Asa -) 81 mg PO DAILY [facility] Last Admin: 03/21/19 11:36 Dose: 81 mg Calcium Carbonate (Os-Gerard 500mg -) 500 mg PO BID [facility] Last Admin: 03/21/19 11:36 Dose: 500 mg Carbidopa/Levodopa (Sinemet *Cr* 50/200 -) 1 combo PO 0700,1200,1700 [facility] Last Admin: 03/21/19 11:45 Dose: 1 combo Cholecalciferol (Vitamin D3 -) 1,000 unit PO DAILY [facility] Last Admin: 03/21/19 11:36 Dose: 1,000 unit Finasteride (Proscar -) 5 mg PO [facility] Last Admin: 03/20/19 21:54 Dose: 5 mg Hydrocortisone (Cortef -) 20 mg PO BID [facility] Lactobacillus Acidophilus (Bacid -) 1 tab PO DAILY [facility] Last Admin: 03/21/19 11:36 Dose: 1 tab Levothyroxine Sodium (Synthroid -) 50 mcg PO DAILY@0700 [facility] Last Admin: 03/21/19 05:59 Dose: 50 mcg Potassium Chloride (K-Dur -) 20 meq PO DAILY [facility] Last Admin: 03/21/19 11:36 Dose: 20 meq Quetiapine Fumarate (Seroquel -) 12.5 mg PO DAILY PRN PRN Reason: AGITATION Rosuvastatin Calcium (Crestor -) 10 mg PO [facility] Last Admin: 03/20/19 21:54 Dose: 10 mg - Objective Vital Signs: Vital Signs Temperature 97.4 F L 03/21/19 15:00 Pulse Rate 67 03/21/19 15:00 Respiratory Rate 18 03/21/19 15:00 Blood Pressure 137/66 03/21/19 15:00 O2 Sat by Pulse Oximetry (%) 96 03/21/19 12:59 Constitutional: Yes: Calm Eyes: Yes: Conjunctiva Clear HENT: Yes: Atraumatic Neck: Yes: Supple Cardiovascular: Yes: S1, S2 Respiratory: Yes: CTA Bilaterally Gastrointestinal: Yes: Soft Genitourinary: Yes: Nava Present Musculoskeletal: Yes: WNL Edema: Yes Edema: LLE: 1+, RLE: 1+ Neurological: Yes: Oriented Psychiatric: Yes: Oriented Labs: CBC, BMP 03/21/19 05:30 03/21/19 05:30 INR, PTT INR 1.18 (0.83-1.09) H 03/14/19 15:00 Assessment/Plan Current Medications Generic Name Dose Route Start Last Admin Trade Name Jose Eq PRN Reason Stop Dose Admin Apixaban 10 mg 03/20/19 12:00 03/21/19 11:36 Eliquis - PO 10 mg BID [facility] Administration Aspirin 81 mg 03/16/19 10:00 03/21/19 11:36 Asa - PO 81 mg DAILY [facility] Administration Calcium Carbonate 500 mg 03/17/19 10:00 03/21/19 11:36 Os-Gerard 500mg - PO 500 mg BID [facility] Administration Carbidopa/Levodopa 1 combo 03/16/19 07:00 03/21/19 11:45 Sinemet *Cr* 50/200 - PO 1 combo 0700,1200,1700 [facility] Administration Cholecalciferol 1,000 unit 03/16/19 10:00 03/21/19 11:36 Vitamin D3 - PO 1,000 unit DAILY [facility] Administration Finasteride 5 mg 03/19/19 22:00 03/20/19 21:54 Proscar - PO 5 mg HS [facility] Administration Hydrocortisone 20 mg 03/21/19 22:00 Cortef - PO BID [facility] Lactobacillus Acidophilus 1 tab 03/20/19 16:01 03/21/19 11:36 Bacid - PO 1 tab DAILY [facility] Administration Levothyroxine Sodium 50 mcg 03/20/19 07:00 03/21/19 05:59 Synthroid - PO 50 mcg DAILY@0700 [facility] Administration Potassium Chloride 20 meq 03/18/19 10:00 03/21/19 11:36 K-Dur - PO 20 meq DAILY [facility] Administration Quetiapine Fumarate 12.5 mg 03/16/19 17:27 Seroquel - PO DAILY PRN AGITATION Rosuvastatin Calcium 10 mg 03/19/19 22:00 03/20/19 21:54 Crestor - PO 10 mg HS [facility] Administration Impression 1. PO 2. hypokalemia 3. s/p pituitary tumor resection 4. cad 5. hypotension 6. urinary retention Plan - nava in place - urology eval - renal function improving - repeat labs in am - will need outpt workup - follow urine eos
--- NOTE | 2019-03-21 17:01 | PN ---
Physical Exam: SUBJECTIVE: Patient seen and examined at the bedside. Patient has nava in and tolerating it well. Appetite endorsed is good. Patient deferring all medical and social work decisions to his children. Endorses some constipation. He currently denies cp, sob, abd pain, n/v, fever, chills, dizziness, lightheadedness, headaches. Spoken with PCP Dr. Forrester and daughter Coby Gary today. Patient is currently medically clear to leave the facility and original plan was to go home , however family noted that there is inadquate care for the nava catheter at home. Patient can be set up with SNF for continued care of the nava catheter and follow up with urology. No further need for continued inpatient medical treatment. OBJECTIVE: Vital Signs Period Temp Pulse Resp BP Sys/Miguel Pulse Ox Last 24 Hr 97.4 F-98.2 F 59-70 18-20 116-146/60-85 95-96 GENERAL: Awake, alert, and fully oriented, in no acute distress. HEAD: Normal with no signs of trauma. ENT: Moist mucous membranes LUNGS: Breath sounds equal, clear to auscultation bilaterally. No wheezes, and no crackles. No accessory muscle use. HEART: Regular rate and rhythm, normal S1 and S2 without murmur, rub. ABDOMEN: Soft, nontender, not distended, normoactive bowel sounds, no guarding, no rebound, no masses. UPPER EXTREMITIES: 2+ pulses, warm, well-perfused. No cyanosis. No clubbing. No peripheral edema. LOWER EXTREMITIES: 2+ pulses, warm, well-perfused. No calf tenderness. 2+ peripheral edema. NEUROLOGICAL: Cranial nerves II-XII intact. 4/5 UE against resistance, able to lift legs on passive ROM (4/5), normal sensation. Cogwheeling present in L arm. Unable to perform rapid movements. PSYCHIATRIC: Cooperative. Good eye contact. Appropriate mood and affect. SKIN: Warm, dry, ecchymosis on bilateral arms. Laboratory Results - last 24 hr 03/21/19 03/21/19 03/21/19 05:30 05:30 05:30 WBC 13.6 H RBC 3.43 L Hgb 10.3 L Hct 29.8 L MCV 86.9 MCH 29.9 MCHC 34.4 RDW 15.6 Plt Count 126 L MPV 7.3 L PTT (Actin FS) 26.5 Sodium 142 Potassium 3.6 Chloride 108 H Carbon Dioxide 31 Anion Gap 4 L BUN 31.3 H Creatinine 1.8 H Est GFR (CKD-EPI)AfAm 40.87 Est GFR (CKD-EPI)NonAf 35.26 Random Glucose 86 Calcium 7.6 L Magnesium 2.0 Active Medications Generic Name Dose Route Start Last Admin Trade Name Freq PRN Reason Stop Dose Admin Apixaban 10 mg 03/20/19 12:00 03/21/19 11:36 Eliquis - PO 10 mg BID OSWALDO Administration Aspirin 81 mg 03/16/19 10:00 03/21/19 11:36 Asa - PO 81 mg DAILY OSWALDO Administration Calcium Carbonate 500 mg 03/17/19 10:00 03/21/19 11:36 Os-Gerard 500mg - PO 500 mg BID OSWALDO Administration Carbidopa/Levodopa 1 combo 03/16/19 07:00 03/21/19 11:45 Sinemet *Cr* 50/200 - PO 1 combo 0700,1200,1700 OSWALDO Administration Cholecalciferol 1,000 unit 03/16/19 10:00 03/21/19 11:36 Vitamin D3 - PO 1,000 unit DAILY OSWALDO Administration Finasteride 5 mg 03/19/19 22:00 03/20/19 21:54 Proscar - PO 5 mg HS OSWALDO Administration Hydrocortisone 20 mg 03/21/19 22:00 Cortef - PO BID OSWALDO Lactobacillus Acidophilus 1 tab 03/20/19 16:01 03/21/19 11:36 Bacid - PO 1 tab DAILY OSWALDO Administration Levothyroxine Sodium 50 mcg 03/20/19 07:00 03/21/19 05:59 Synthroid - PO 50 mcg DAILY@0700 OSWALDO Administration Potassium Chloride 20 meq 03/18/19 10:00 03/21/19 11:36 K-Dur - PO 20 meq DAILY OSWALDO Administration Quetiapine Fumarate 12.5 mg 03/16/19 17:27 Seroquel - PO DAILY PRN AGITATION Rosuvastatin Calcium 10 mg 03/19/19 22:00 03/20/19 21:54 Crestor - PO 10 mg HS OSWALDO Administration ASSESSMENT/PLAN: Titi Gary is a 79 year old male with a past medical history of Maryy Henry parkinson's disease, CAD (s/p quadruple bypass), pituitary tumor (s/p resection 1997),hypothyroidism (on synthroid 75mcg) who admitted with 1 week of AMS, diarrhea and falls. Presyncopal fall -> likely 2/2 Shy drager hx/dehydration/Iatrogenic Hyperthyroidism/UTI - CT head negative for acute intracranial hemmorhage, CT cervical spine- C4-5, C5-6 degenerative central canal stenosis with signs of fracture. CT hip/pelvis is pending. - IVF hydration stopped due to edema, patient strength and lethagy improvement - orthostatic vitals prior to fluids given negative - will decrease synthroid to 50mcg per Dr. Ferguson - Consult endo (Dr. Menjivar) for recs, spoken to today and recommended switching from IV Solu-cortef 100mg tid to hydrocortisone 25mg bid, further tapered to 20mg bid. Taper instructions as per endocrine. Kathleen Fischer. - will need laboratory work outpatient to determine optimal dosing of pituitary hormone replacement - Seizure/Fall precautions implemented - PT eval, 65ft ambulation, unsteady. - echo showing EF 55-60%, moderately dilated left atrium, trace mitral and triscuspid regurg, mild aortic sclerosis - repeat EKG showing NSR, age indeterminate anterior infarct QTc 475 - UA + nitrites, 3+ LE, +bacteria, WBC, repeat UA + for infection - Ucx first contaminated, repeat showing group D strep/enteroccocus <40k bacteria - no further need for antibiotics Diarrhea -> likely colitis/rule out c diff - CT Abd pelvis without contrast- no signs of colitis, diverticulitis, just diverticulosis. - ordered c diff, fecal calprotectin, stool c&s, ova and parasites negative - can follow up with outpatient GI PO on CKD - possibly due to recent trauma or hypophosphatemia 2/2 diarrhea and poor po intake - renal sono showing normal kidneys - Renal consulted (Dr. Correa) for PO on CKD recommendations. - CRE improving - urine lytes and [employer] - ACTH <1.1 (low) and AM cortisol 69.6 - nava catheter placed due to retention >900cc, failed voiding trial yesterday , nava was replaced - urology consulted, recs appreciated - tamsulosin not started due to concerns of orthostatic hypotension, continue Proscar Lower Extremity Swelling - DVT study of showing +DVT in L popliteal and superficial femoral vein - started on Eliquis 10mg bid for 7 days and 5mg bid afterwards Hypokalemia - continue potassium supplementation, today 3.6, continue to monitor - monitor K daily - repeat EKG with no acute changes - 20 MEq daily supplementation Parkinson's Disease - continue home Sinemet - neurology consulted, recs appreciated - Seroquel 12.5mg prn for agitation at night CAD hx - continue home aspirin and atorvastatin Hypothyroidism - decreased synthroid dose 50mcg due to decreased TSH, signifying iatrogenic hyperthyroidism - endocrine consult - will require outpatient f/u for thyroid function tests in 4-6 weeks after discharge FEN - no standing fluids, encourage PO intake - continue to monitor electrolytes and replete as necessary - sodium controlled diet DVT PPX - Heparin 5000 units subq TID Dispo - transfer to Med-surg - family is currently debating placement for SNF due to nava catheter placement - Daughter Gladis Gary contacted and spoken to at length regarding reason and rationale for nava catheter placement and need for adequate follow up with urology and that there is no current continued need for inpatient hospitalization - spoken with social work and [facility]A was sent for SNF in [place], pending approval Problem List - Problems (1) Central hypothyroidism Code(s): E03.8 - OTHER SPECIFIED HYPOTHYROIDISM (2) Falls frequently Code(s): R29.6 - REPEATED FALLS (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 Code(s): E89.3 - POSTPROCEDURAL HYPOPITUITARISM (4) Urinary retention Code(s): R33.9 - RETENTION OF URINE, UNSPECIFIED (5) Altered mental status Code(s): R41.82 - ALTERED MENTAL STATUS, UNSPECIFIED Qualifiers: Altered mental status type: unspecified Qualified Code(s): R41.82 - Altered mental status, unspecified (6) Diarrhea Code(s): R19.7 - DIARRHEA, UNSPECIFIED (7) Hypokalemia Code(s): E87.6 - HYPOKALEMIA Visit type - Emergency Visit Emergency Visit: Yes ED Registration Date: 03/14/19 Care time: The patient presented to the Emergency Department on the above date and was hospitalized for further evaluation of their emergent condition. - New Patient This patient is new to me today: No - Critical Care Critical Care patient: No
--- NOTE | 2019-03-21 17:06 | PN ---
Teaching Attending Note Name of Resident: Wade Cruz ATTENDING PHYSICIAN STATEMENT I saw and evaluated the patient. I reviewed the resident's note and discussed the case with the resident. I agree with the resident's findings and plan as documented. SUBJECTIVE: No complaints. No chest pain/SOB/palpitations/lightheadedness. No further diarrhea. No abdominal pain/nausea/vomiting/fever/chills. Nava back in draining clear urine. OBJECTIVE: Afebrile, Hemodynamically Stable. Last Vital Signs Temp Pulse Resp BP Pulse Ox 97.4 F L 67 18 137/66 96 03/21/19 15:00 03/21/19 15:00 03/21/19 15:00 03/21/19 15:00 03/21/19 12:59 Lungs - clear to auscultation Abdomen - Soft, non-tender. Bowel Sounds normal. Extremtiies - bruised upper extremities, LE edema + Neuro - AAO x 3. Tone/Power normal. Laboratory Results - last 24 hr 03/21/19 03/21/19 03/21/19 05:30 05:30 05:30 WBC 13.6 H RBC 3.43 L Hgb 10.3 L Hct 29.8 L MCV 86.9 MCH 29.9 MCHC 34.4 RDW 15.6 Plt Count 126 L MPV 7.3 L PTT (Actin FS) 26.5 Sodium 142 Potassium 3.6 Chloride 108 H Carbon Dioxide 31 Anion Gap 4 L BUN 31.3 H Creatinine 1.8 H Est GFR (CKD-EPI)AfAm 40.87 Est GFR (CKD-EPI)NonAf 35.26 Random Glucose 86 Calcium 7.6 L Magnesium 2.0 Current Medications Generic Name Dose Route Start Last Admin Trade Name Freq PRN Reason Stop Dose Admin Apixaban 10 mg 03/20/19 12:00 03/21/19 11:36 Eliquis - PO 10 mg BID OSWALDO Administration Aspirin 81 mg 03/16/19 10:00 03/21/19 11:36 Asa - PO 81 mg DAILY OSWALDO Administration Calcium Carbonate 500 mg 03/17/19 10:00 03/21/19 11:36 Os-Gerard 500mg - PO 500 mg BID OSWALDO Administration Carbidopa/Levodopa 1 combo 03/16/19 07:00 03/21/19 11:45 Sinemet *Cr* 50/200 - PO 1 combo 0700,1200,1700 OSWALDO Administration Cholecalciferol 1,000 unit 03/16/19 10:00 03/21/19 11:36 Vitamin D3 - PO 1,000 unit DAILY OSWALDO Administration Finasteride 5 mg 03/19/19 22:00 03/20/19 21:54 Proscar - PO 5 mg HS OSWALDO Administration Hydrocortisone 20 mg 03/21/19 22:00 Cortef - PO BID OSWALDO Lactobacillus Acidophilus 1 tab 03/20/19 16:01 03/21/19 11:36 Bacid - PO 1 tab DAILY OSWALDO Administration Levothyroxine Sodium 50 mcg 03/20/19 07:00 03/21/19 05:59 Synthroid - PO 50 mcg DAILY@0700 OSWALDO Administration Polyethylene Glycol 17 gm 03/22/19 16:58 Miralax (For Daily Use) - PO DAILY OSWALDO Potassium Chloride 20 meq 03/18/19 10:00 03/21/19 11:36 K-Dur - PO 20 meq DAILY OSWALDO Administration Quetiapine Fumarate 12.5 mg 03/16/19 17:27 Seroquel - PO DAILY PRN AGITATION Rosuvastatin Calcium 10 mg 03/19/19 22:00 03/20/19 21:54 Crestor - PO 10 mg HS OSWALDO Administration Home Medications Medication Instructions Recorded Amlodipine Besylate 5 mg DAILY 03/14/19 Aspirin 81 mg DAILY 03/14/19 Carbidopa/Levodopa [Carbidopa-Levo 1 tab TID 03/14/19 ER 50-200 Tab] Cholecalciferol (Vitamin D3) 1,000 unit DAILY 03/14/19 [Vitamin D3] Finasteride 5 mg DAILY 03/14/19 Polyethylene Glycol 3350 17 gm DAILY 03/14/19 Rosuvastatin [Crestor -] 40 mg DAILY 03/14/19 Testosterone Cypionate 200 vial ASDIR 03/14/19 Ubidecarenone [Co Q-10] 30 mg DAILY 03/14/19 Apixaban [Eliquis -] 10 mg PO BID #70 tablet 03/20/19 Calcium (Oyster Shell) [Os-Gerard 500 mg PO BID #30 tablet 03/20/19 500MG -] Hydrocortisone [Cortef -] 20 mg PO DAILY #60 tablet 03/20/19 Lactobacillus Acidophilus [Bacid -] 1 tab PO DAILY #30 tab 12/11/19 Levothyroxine [Synthroid -] 50 mcg PO DAILY@0700 #30 tablet 03/20/19 Potassium Chloride [K-Dur -] 20 meq PO DAILY #30 tablet.er 03/20/19 Quetiapine Fumarate [Seroquel -] 12.5 mg PO HS PRN #30 tablet 03/20/19 Hydrocortisone [Cortef -] 5 mg PO DAILY #24 tablet 03/21/19 Hydrocortisone [Cortef -] 20 mg PO BID #8 tablet 03/21/19 ASSESSMENT AND PLAN: 79 year old male with history of Parkinson Disease/Shy Drager Syndrome, Pituitary tumor (s/p resection), coronary artery disease (s/p CABG x4 vessels), hypothyroidism, HLD, HTN, BPH, presents with recurrent falls, poor oral intake, loose stool, and altered mental status. He was found to have severe electrolyte abnormalities including K 2.2 1. Acute Metabolic Encephalopathy likely sec to dehydration due to poor oral intake and reported diarrhea - resolved. AAO x [address] Brain negative for acute findings. Neurology consulted and recommended Quetiapine 12.5-25 mg QHS PRN for agitation/ sundowning. 2. Ambulatory Dysfunction/Falls - sec to above CT Head/C-Spine negative for acute findings. Echo - normal. PT eval Anthnoy eval appreciated for PD/Shy Drager's - recommend continuing Carbidopa/ Levodopa. 3. Severe Hypokalemia - sec to poor oral intake, GI losses, Florinef, Hydrocortizone (for Adrenal dysfunction s/p Hx pituitary tumor resection) Resolved - Oral and IV repletion PRN Normally on fludrocortizone and Hydrocotizone s/p pituitary tumor resection - held as per Endocrinology in favor of IV Solucortef initially, now transitioned to oral Hydrocotisone - slow taper as per Endo. Further steroid titration by Endocrinology as out-patient. 4. PO on CKD - Creat much improved. Renal US - no obstruction Nephrology to follow as out-patient. 5. Diarrhea - resolved. Cdiff/Stool Cx negative. CT A/P - Prostate enlargement, Diverticulosis, bibasilar atelectasis. 6. DVT LLE - Extensive - started on Eliquis. 7. Hypothyroidism, on Synthroid - TSH low at 0.29. Synthroid dose reduced to 50mcg. Endocrinology to follow as out-patient. 8. Coronary artery disease (s/p CABG x4 vessels) - continue ASA. To resume Statin on discharge. 9. HLD - on Statin. To be resumed on discharge. 9. HTN - Norvasc held due to peripheral vasodilatory effect and possible contribution to orthostasis/syncope/falls. 10. Urinary retention secondary to BPH - Proscar initially held by Endocrinology - now resumed. Failed TOV 03/20 and nava re-inserted. Family does not feel able to manage nava at home. Discussed with CM and patient referred to SNFs, awaiting response. Seen by Urology - for outpatient follow up. Medically optimized for discharge with Nephrology, Endocrinology, PCP, Urology follow up. Needs repeat TSH in 4-6 weeks.
[2019-03-21] MEDS: FINASTERIDE 5 MG TABLET (FP) PO SCH (21:17)
[2019-03-21] MEDS: ROSUVASTATIN CA 10 MG TABLET (FP) PO SCH (21:17)
[2019-03-21] MEDS: HYDROCORTISONE 20 MG TABLET PO SCH (21:18)
[2019-03-22] MEDS: LEVOTHYROXINE NA 50 MCG TABLET (FP) PO SCH (06:17)
[2019-03-22 06:51] LABS: HEMATOCRIT 31.4 % (35.4-49); HEMOGLOBIN 10.6 GM/dL (11.7-16.9); MCH 29.3 pg (25.7-33.7); MCHC 33.7 g/dl (32.0-35.9); MEAN CELL VOLUME 86.9 fl (80-96); MEAN PLT VOLUME 7.6 fl (7.5-11.1); PLATELET COUNT 128 K/MM3 (134-434); RBC 3.62 M/mm3 (4.00-5.60); RDW 15.3 % (11.9-15.9); WHITE BLOOD COUNT 16.8 K/mm3 (4.0-10.0)
[2019-03-22 07:43] LABS: ALBUMIN 2.2 g/dl (3.4-5.0); BILIRUBIN,TOTAL 0.5 mg/dL (0.2-1); BLOOD UREA NITROGEN 31.1 mg/dL (7-18); CALCIUM 7.6 mg/dL (8.5-10.1); CREATININE 1.7 mg/dL (0.55-1.3); MAGNESIUM 1.8 mg/dL (1.8-2.4); POTASSIUM 3.4 mmol/L (3.5-5.1); TOT PROT 5.4 g/dl (6.4-8.2)
[2019-03-22] MEDS ORDERED: POTASSIUM CHLORIDE TABS 20 MEQ TABLET.ER (FP) PO ONE ×2 (08:20→11:09)
[2019-03-22] MEDS ORDERED: MAGNESIUM SULF 50% (8.12 MEQ/2 ML-1 GM VIAL) IVPB ONE (08:21)
[2019-03-22] MEDS: ASPIRIN 81 MG CHEWABLE TABLETS PO SCH (08:59)
[2019-03-22] MEDS: CALCIUM (OYSTER SHELL) 500 MG TABLET (FP) PO SCH ×2 (08:59→22:12)
[2019-03-22] MEDS: APIXABAN 5 MG TABLET PO SCH ×2 (08:59→22:12)
[2019-03-22] MEDS: CHOLECALCIFEROL (VIT D3) 1,000 UNIT (25 MCG) TABLET PO SCH (08:59)
[2019-03-22] MEDS: LACTOBACILLUS ACIDOPHILUS 1 TABLET PO SCH (08:59)
[2019-03-22] MEDS ORDERED: PT OWN MED DRAWER 7, Y5N ONE ×2 (09:04→21:44)
[2019-03-22] MEDS: HYDROCORTISONE 20 MG TABLET PO SCH ×2 (09:18→22:12)
[2019-03-22] MEDS: POTASSIUM CHLORIDE TABS 20 MEQ TABLET.ER (FP) PO SCH (10:02)
--- NOTE | 2019-03-22 10:04 | PN ---
Progress Note, Physician Chief Complaint: no cp or sob - Current Medication List Current Medications: Active Medications Apixaban (Eliquis -) 10 mg PO BID [facility] Last Admin: 03/22/19 08:59 Dose: 10 mg Aspirin (Asa -) 81 mg PO DAILY [facility] Last Admin: 03/22/19 08:59 Dose: 81 mg Calcium Carbonate (Os-Gerard 500mg -) 500 mg PO BID [facility] Last Admin: 03/22/19 08:59 Dose: 500 mg Carbidopa/Levodopa (Sinemet *Cr* 50/200 -) 1 combo PO 0700,1200,1700 [facility] Last Admin: 03/22/19 06:17 Dose: 1 combo Cholecalciferol (Vitamin D3 -) 1,000 unit PO DAILY [facility] Last Admin: 03/22/19 08:59 Dose: 1,000 unit Finasteride (Proscar -) 5 mg PO [facility] Last Admin: 03/21/19 21:17 Dose: 5 mg Hydrocortisone (Cortef -) 20 mg PO BID [facility] Last Admin: 03/22/19 09:18 Dose: 20 mg Lactobacillus Acidophilus (Bacid -) 1 tab PO DAILY [facility] Last Admin: 03/22/19 08:59 Dose: 1 tab Levothyroxine Sodium (Synthroid -) 50 mcg PO DAILY@0700 [facility] Last Admin: 03/22/19 06:17 Dose: 50 mcg Polyethylene Glycol (Miralax (For Daily Use) -) 17 gm PO DAILY [facility] Potassium Chloride (K-Dur -) 20 meq PO DAILY [facility] Last Admin: 03/22/19 10:02 Dose: 20 meq Quetiapine Fumarate (Seroquel -) 12.5 mg PO DAILY PRN PRN Reason: AGITATION Rosuvastatin Calcium (Crestor -) 10 mg PO [facility] Last Admin: 03/21/19 21:17 Dose: 10 mg - Objective Vital Signs: Vital Signs Temperature 97.6 F 03/22/19 08:05 Pulse Rate 63 03/22/19 08:05 Respiratory Rate 18 03/22/19 08:05 Blood Pressure 154/87 03/22/19 08:05 O2 Sat by Pulse Oximetry (%) 96 03/21/19 21:00 Cardiovascular: Yes: Regular Rate and Rhythm Respiratory: Yes: CTA Bilaterally Gastrointestinal: Yes: Soft (nt) Edema: Yes Edema: LLE: 2+, RLE: 2+ Neurological: Yes: Alert, Oriented Labs: CBC, BMP 03/22/19 06:10 03/22/19 06:10 INR, PTT INR 1.18 (0.83-1.09) H 03/14/19 15:00 Assessment/Plan IMP: Resolving Hypokalemia Acute on chronic renal failure Virginie salcedo Parkinson's disease CAD (s/p quadruple bypass) Pituitary tumor (s/p resection 1997) Hypothyroidism AMS Diarrhea Falls Hypoalbuminemia REC: 1. Continued adjustment/regulation of steroids as per Endo 2. Renal following: K+ improved. bun/creat remain up--per renal team 3. Agree with holding Amlodipine. Vasodilatory effect may contribute to orthostatic BP changes leading to falls. Patient has underlying PD with autonomic dysfx on that basis. Thus would minimize use of any vasodilatory meds that are not required. 4. CAD chronic/stable with recent echo showing normal LVEF and no sig valve disease. No arrhythmias on tele to explain falls. Pt is followed closely by outside solar field installation crew member at [facility]. 5. Further w/u of diarrhea as per primary team and GI. 6. Edema likely to 3rd spacing, low albumin; also found to have left le DVT, now on ac
--- NOTE | 2019-03-22 11:27 | PN ---
Teaching Attending Note Name of Resident: Wade Cruz ATTENDING PHYSICIAN STATEMENT I saw and evaluated the patient. I reviewed the resident's note and discussed the case with the resident. I agree with the resident's findings and plan as documented. SUBJECTIVE: No complaints. No chest pain/SOB/palpitations/lightheadedness. No further diarrhea. No abdominal pain/nausea/vomiting/fever/chills. Nava draining clear urine. OBJECTIVE: Afebrile, Hemodynamically Stable. Last Vital Signs Temp Pulse Resp BP Pulse Ox 97.6 F 63 18 154/87 95 03/22/19 08:05 03/22/19 08:05 03/22/19 09:00 03/22/19 08:05 03/22/19 09:00 Lungs - clear to auscultation Abdomen - Soft, non-tender. Bowel Sounds normal. Extremities - bruised upper extremities, LE edema ++ Neuro - AAO x 3. Tone/Power normal. Laboratory Results - last 24 hr 03/22/19 03/22/19 03/22/19 06:10 06:10 06:10 WBC 16.8 H RBC 3.62 L Hgb 10.6 L Hct 31.4 L MCV 86.9 MCH 29.3 MCHC 33.7 RDW 15.3 Plt Count 128 L MPV 7.6 PTT (Actin FS) 27.9 Sodium 141 Potassium 3.4 L Chloride 105 Carbon Dioxide 31 Anion Gap 5 L BUN 31.1 H Creatinine 1.7 H Est GFR (CKD-EPI)AfAm 43.79 Est GFR (CKD-EPI)NonAf 37.79 Random Glucose 83 Calcium 7.6 L Magnesium 1.8 Total Bilirubin 0.5 AST 50 H ALT 20 Alkaline Phosphatase 117 Total Protein 5.4 L Albumin 2.2 L Current Medications Generic Name Dose Route Start Last Admin Trade Name Freq PRN Reason Stop Dose Admin Apixaban 10 mg 03/20/19 12:00 03/22/19 08:59 Eliquis - PO 03/26/19 22:00 10 mg BID OSWALDO Administration Aspirin 81 mg 03/16/19 10:00 03/22/19 08:59 Asa - PO 81 mg DAILY OSWALDO Administration Calcium Carbonate 500 mg 03/17/19 10:00 03/22/19 08:59 Os-Gerard 500mg - PO 500 mg BID OSWALDO Administration Carbidopa/Levodopa 1 combo 03/16/19 07:00 03/22/19 06:17 Sinemet *Cr* 50/200 - PO 1 combo 0700,1200,1700 OSWALDO Administration Cholecalciferol 1,000 unit 03/16/19 10:00 03/22/19 08:59 Vitamin D3 - PO 1,000 unit DAILY OSWALDO Administration Finasteride 5 mg 03/19/19 22:00 03/21/19 21:17 Proscar - PO 5 mg HS OSWALDO Administration Hydrocortisone 20 mg 03/21/19 22:00 03/22/19 09:18 Cortef - PO 20 mg BID OSWALDO Administration Lactobacillus Acidophilus 1 tab 03/20/19 16:01 03/22/19 08:59 Bacid - PO 1 tab DAILY OSWALDO Administration Levothyroxine Sodium 50 mcg 03/20/19 07:00 03/22/19 06:17 Synthroid - PO 50 mcg DAILY@0700 OSWALDO Administration Polyethylene Glycol 17 gm 03/22/19 16:58 Miralax (For Daily Use) - PO DAILY OSWALDO Potassium Chloride 20 meq 03/18/19 10:00 03/22/19 10:02 K-Dur - PO 20 meq DAILY OSWALDO Administration Quetiapine Fumarate 12.5 mg 03/16/19 17:27 Seroquel - PO DAILY PRN AGITATION Rosuvastatin Calcium 10 mg 03/19/19 22:00 03/21/19 21:17 Crestor - PO 10 mg HS OSWALDO Administration Discharge Medications Medication Instructions Recorded Amlodipine Besylate 5 mg DAILY 03/14/19 Aspirin 81 mg DAILY 03/14/19 Carbidopa/Levodopa [Carbidopa-Levo 1 tab TID 03/14/19 ER 50-200 Tab] Cholecalciferol (Vitamin D3) 1,000 unit DAILY 03/14/19 [Vitamin D3] Finasteride 5 mg DAILY 03/14/19 Polyethylene Glycol 3350 17 gm DAILY 03/14/19 Rosuvastatin [Crestor -] 40 mg DAILY 03/14/19 Testosterone Cypionate 200 vial ASDIR 03/14/19 Ubidecarenone [Co Q-10] 30 mg DAILY 03/14/19 Apixaban [Eliquis -] 10 mg PO BID #70 tablet 03/20/19 Calcium (Oyster Shell) [Os-Gerard 500 mg PO BID #30 tablet 03/20/19 500MG -] Hydrocortisone [Cortef -] 20 mg PO DAILY #60 tablet 03/20/19 Lactobacillus Acidophilus [Bacid -] 1 tab PO DAILY #30 tab 03/20/19 Levothyroxine [Synthroid -] 50 mcg PO DAILY@0700 #30 tablet 03/20/19 Potassium Chloride [K-Dur -] 20 meq PO DAILY #30 tablet.er 03/20/19 Quetiapine Fumarate [Seroquel -] 12.5 mg PO HS PRN #30 tablet 03/20/19 Hydrocortisone [Cortef -] 5 mg PO DAILY #24 tablet 03/21/19 Hydrocortisone [Cortef -] 20 mg PO BID #8 tablet 03/21/19 ASSESSMENT AND PLAN: 79 year old male with history of Parkinson Disease/Shy Drager Syndrome, Pituitary tumor (s/p resection), coronary artery disease (s/p CABG x4 vessels), hypothyroidism, HLD, HTN, BPH, presents with recurrent falls, poor oral intake, loose stool, and altered mental status. He was found to have severe electrolyte abnormalities including K 2.2 1. Acute Metabolic Encephalopathy likely sec to dehydration due to poor oral intake and reported diarrhea - resolved. AAO x [address] Brain negative for acute findings. Neurology consulted and recommended Quetiapine 12.5-25 mg QHS PRN for agitation/ sundowning. 2. Ambulatory Dysfunction/Falls - sec to above CT Head/C-Spine negative for acute findings. Echo - normal. PT eval Anthony eval appreciated for PD/Shy Drager's - recommend continuing Carbidopa/ Levodopa. 3. Severe Hypokalemia - sec to poor oral intake, GI losses, Florinef, Hydrocortizone (for Adrenal dysfunction s/p Hx pituitary tumor resection) Resolved - Oral and IV repletion PRN Normally on fludrocortizone and Hydrocotizone s/p pituitary tumor resection - held as per Endocrinology in favor of IV Solucortef initially, now transitioned to oral Hydrocotisone - slow taper as per Endo. Further steroid titration by Endocrinology as out-patient. 4. PO on CKD - Creat much improved. Renal US - no obstruction Nephrology to follow as out-patient. 5. Diarrhea - resolved. Cdiff/Stool Cx negative. CT A/P - Prostate enlargement, Diverticulosis, bibasilar atelectasis. 6. DVT LLE - Extensive - started on Eliquis dosing as per DVT protocol. 7. Hypothyroidism, on Synthroid - TSH low at 0.29. Synthroid dose reduced to 50mcg. Endocrinology to follow as out-patient. 8. Coronary artery disease (s/p CABG x4 vessels) - continue ASA. To resume Statin on discharge. 9. HLD - on Statin. To be resumed on discharge. 9. HTN - Norvasc held due to peripheral vasodilatory effect and possible contribution to orthostasis/syncope/falls. 10. Urinary retention secondary to BPH - Proscar initially held by Endocrinology - now resumed. Failed TOV 03/20 and nava re-inserted. Family does not feel able to manage nava at home. Discussed with CM and patient referred to SNFs, awaiting response. Seen by Urology - for outpatient follow up. Medically optimized for discharge with Nephrology, Endocrinology, PCP, Urology follow up. Needs repeat TSH in 4-6 weeks.
--- NOTE | 2019-03-22 13:02 | PN ---
Progress Note, Physician History of Present Illness: Pt seen and examined at bedside. He is out of bed to chair. He denies shortness of breath. - Current Medication List Current Medications: Active Medications Apixaban (Eliquis -) 10 mg PO BID [facility] Stop: 03/26/19 22:00 Last Admin: 03/22/19 08:59 Dose: 10 mg Aspirin (Asa -) 81 mg PO DAILY [facility] Last Admin: 03/22/19 08:59 Dose: 81 mg Calcium Carbonate (Os-Gerard 500mg -) 500 mg PO BID [facility] Last Admin: 03/22/19 08:59 Dose: 500 mg Carbidopa/Levodopa (Sinemet *Cr* 50/200 -) 1 combo PO 0700,1200,1700 [facility] Last Admin: 03/22/19 11:57 Dose: 1 combo Cholecalciferol (Vitamin D3 -) 1,000 unit PO DAILY [facility] Last Admin: 03/22/19 08:59 Dose: 1,000 unit Finasteride (Proscar -) 5 mg PO [facility] Last Admin: 03/21/19 21:17 Dose: 5 mg Hydrocortisone (Cortef -) 20 mg PO BID [facility] Last Admin: 03/22/19 09:18 Dose: 20 mg Lactobacillus Acidophilus (Bacid -) 1 tab PO DAILY [facility] Last Admin: 03/22/19 08:59 Dose: 1 tab Levothyroxine Sodium (Synthroid -) 50 mcg PO DAILY@0700 [facility] Last Admin: 03/22/19 06:17 Dose: 50 mcg Polyethylene Glycol (Miralax (For Daily Use) -) 17 gm PO DAILY [facility] Potassium Chloride (K-Dur -) 40 meq PO DAILY [facility] Quetiapine Fumarate (Seroquel -) 12.5 mg PO DAILY PRN PRN Reason: AGITATION Rosuvastatin Calcium (Crestor -) 10 mg PO HS [facility] Last Admin: 03/21/19 21:17 Dose: 10 mg - Objective Vital Signs: Vital Signs Temperature 97.6 F 03/22/19 08:05 Pulse Rate 63 03/22/19 08:05 Respiratory Rate 18 03/22/19 09:00 Blood Pressure 154/87 03/22/19 08:05 O2 Sat by Pulse Oximetry (%) 95 03/22/19 09:00 Constitutional: Yes: Calm Eyes: Yes: Conjunctiva Clear HENT: Yes: Atraumatic Neck: Yes: Supple Cardiovascular: Yes: S1, S2 Respiratory: Yes: CTA Bilaterally Gastrointestinal: Yes: Soft Genitourinary: Yes: WNL Musculoskeletal: Yes: WNL Edema: Yes Edema: LLE: 1+, RLE: 1+ Neurological: Yes: Oriented Psychiatric: Yes: Oriented Labs: CBC, BMP 03/22/19 06:10 03/22/19 06:10 INR, PTT INR 1.18 (0.83-1.09) H 03/14/19 15:00 Problem List - Problems (1) Hypokalemia Code(s): E87.6 - HYPOKALEMIA Assessment/Plan Current Medications Generic Name Dose Route Start Last Admin Trade Name Freq PRN Reason Stop Dose Admin Apixaban 10 mg 03/20/19 12:00 03/22/19 08:59 Eliquis - PO 03/26/19 22:00 10 mg BID [facility]DO Administration Aspirin 81 mg 03/16/19 10:00 03/22/19 08:59 Asa - PO 81 mg DAILY [facility] Administration Calcium Carbonate 500 mg 03/17/19 10:00 03/22/19 08:59 Os-Gerard 500mg - PO 500 mg BID [facility] Administration Carbidopa/Levodopa 1 combo 03/16/19 07:00 03/22/19 11:57 Sinemet *Cr* 50/200 - PO 1 combo 0700,1200,1700 [facility]AL[facility] Administration Cholecalciferol 1,000 unit 03/16/19 10:00 03/22/19 08:59 Vitamin D3 - PO 1,000 unit DAILY [facility]AL[facility] Administration Finasteride 5 mg 03/19/19 22:00 03/21/19 21:17 Proscar - PO 5 mg HS [facility]ALDO Administration Hydrocortisone 20 mg 03/21/19 22:00 03/22/19 09:18 Cortef - PO 20 mg BID [facility]ALDO Administration Lactobacillus Acidophilus 1 tab 03/20/19 16:01 03/22/19 08:59 Bacid - PO 1 tab DAILY [facility]AL[facility] Administration Levothyroxine Sodium 50 mcg 03/20/19 07:00 03/22/19 06:17 Synthroid - PO 50 mcg DAILY@0700 [facility] Administration Polyethylene Glycol 17 gm 03/22/19 16:58 Miralax (For Daily Use) - PO DAILY [facility] Potassium Chloride 40 meq 03/22/19 12:58 K-Dur - PO DAILY [facility] Quetiapine Fumarate 12.5 mg 03/16/19 17:27 Seroquel - PO DAILY PRN AGITATION Rosuvastatin Calcium 10 mg 03/19/19 22:00 03/21/19 21:17 Crestor - PO 10 mg HS OSWALDO Administration Impression 1. PO 2. hypokalemia 3. s/p pituitary tumor resection 4. cad 5. hypotension 6. urinary retention Plan - renal function is improving - urology eval pending - urine eos less than 5 percent - repeat labs in am - will need outpt workup
--- NOTE | 2019-03-22 15:48 | PN ---
Physical Exam: SUBJECTIVE: Patient seen and examined at the bedside. Patient noted that he was feeling well. Endorsed good appetite. Denied any acute complaints of cp, sob, abd pain, n/v/c/d, fever, chills, headaches, dizziness, lightheadedness. OBJECTIVE: Vital Signs Period Temp Pulse Resp BP Sys/Miguel Pulse Ox Last 24 Hr 97.5 F-98.3 F 61-75 16-18 120-163/57-87 95-96 GENERAL: Awake, alert, and fully oriented, in no acute distress. HEAD: Normal with no signs of trauma. ENT: Moist mucous membranes LUNGS: Breath sounds equal, clear to auscultation bilaterally. No wheezes, and no crackles. No accessory muscle use. HEART: Regular rate and rhythm, normal S1 and S2 without murmur, rub. ABDOMEN: Soft, nontender, not distended, normoactive bowel sounds, no guarding, no rebound, no masses. UPPER EXTREMITIES: 2+ pulses, warm, well-perfused. No cyanosis. No clubbing. No peripheral edema. LOWER EXTREMITIES: 2+ pulses, warm, well-perfused. No calf tenderness. 2+ peripheral edema. NEUROLOGICAL: Cranial nerves II-XII intact. 4/5 UE against resistance, able to lift legs on passive ROM (4/5), normal sensation. Cogwheeling present in L arm. Unable to perform rapid movements. PSYCHIATRIC: Cooperative. Good eye contact. Appropriate mood and affect. SKIN: Warm, dry, ecchymosis on bilateral arms. Laboratory Results - last 24 hr 03/22/19 03/22/19 03/22/19 06:10 06:10 06:10 WBC 16.8 H RBC 3.62 L Hgb 10.6 L Hct 31.4 L MCV 86.9 MCH 29.3 MCHC 33.7 RDW 15.3 Plt Count 128 L MPV 7.6 PTT (Actin FS) 27.9 Sodium 141 Potassium 3.4 L Chloride 105 Carbon Dioxide 31 Anion Gap 5 L BUN 31.1 H Creatinine 1.7 H Est GFR (CKD-EPI)AfAm 43.79 Est GFR (CKD-EPI)NonAf 37.79 Random Glucose 83 Calcium 7.6 L Magnesium 1.8 Total Bilirubin 0.5 AST 50 H ALT 20 Alkaline Phosphatase 117 Total Protein 5.4 L Albumin 2.2 L Active Medications Generic Name Dose Route Start Last Admin Trade Name Freq PRN Reason Stop Dose Admin Apixaban 10 mg 03/20/19 12:00 03/22/19 08:59 Eliquis - PO 03/26/19 22:00 10 mg BID [facility]ALDO Administration Aspirin 81 mg 03/16/19 10:00 03/22/19 08:59 Asa - PO 81 mg DAILY [facility] Administration Calcium Carbonate 500 mg 03/17/19 10:00 03/22/19 08:59 Os-Gerard 500mg - PO 500 mg BID [facility] Administration Carbidopa/Levodopa 1 combo 03/16/19 07:00 03/22/19 11:57 Sinemet *Cr* 50/200 - PO 1 combo 0700,1200,1700 [facility] Administration Cholecalciferol 1,000 unit 03/16/19 10:00 03/22/19 08:59 Vitamin D3 - PO 1,000 unit DAILY [facility] Administration Finasteride 5 mg 03/19/19 22:00 03/21/19 21:17 Proscar - PO 5 mg HS [facility]ALDO Administration Hydrocortisone 20 mg 03/21/19 22:00 03/22/19 09:18 Cortef - PO 20 mg BID [facility]AL[facility] Administration Lactobacillus Acidophilus 1 tab 03/20/19 16:01 03/22/19 08:59 Bacid - PO 1 tab DAILY [facility] Administration Levothyroxine Sodium 50 mcg 03/20/19 07:00 03/22/19 06:17 Synthroid - PO 50 mcg DAILY@0700 [facility] Administration Polyethylene Glycol 17 gm 03/22/19 16:58 Miralax (For Daily Use) - PO DAILY [facility] Potassium Chloride 40 meq 03/23/19 10:00 K-Dur - PO DAILY [facility] Quetiapine Fumarate 12.5 mg 03/16/19 17:27 Seroquel - PO DAILY PRN AGITATION Rosuvastatin Calcium 10 mg 03/19/19 22:00 03/21/19 21:17 Crestor - PO 10 mg HS [facility] Administration ASSESSMENT/PLAN: Titi Gary is a 79 year old male with a past medical history of Virginie Figueroa parkinson's disease, CAD (s/p quadruple bypass), pituitary tumor (s/p resection 1997),hypothyroidism (on synthroid 75mcg) who admitted with 1 week of AMS, diarrhea and falls. Presyncopal fall -> likely 2/2 Shy drager hx/dehydration/Iatrogenic Hyperthyroidism/UTI - CT head negative for acute intracranial hemmorhage, CT cervical spine- C4-5, C5-6 degenerative central canal stenosis with signs of fracture. CT hip/pelvis is pending. - IVF hydration stopped due to edema, patient strength and lethagy improvement - orthostatic vitals prior to fluids given negative - will decrease synthroid to 50mcg per Dr. Ferguson - Consult endo (Dr. Menjivar) for recs, spoken to today and recommended switching from IV Solu-cortef 100mg tid to hydrocortisone 25mg bid, further tapered to 20mg bid. Taper instructions as per endocrine. Kathleen Fischer. - will need laboratory work outpatient to determine optimal dosing of pituitary hormone replacement - Seizure/Fall precautions implemented - PT eval, 65ft ambulation, unsteady. - echo showing EF 55-60%, moderately dilated left atrium, trace mitral and triscuspid regurg, mild aortic sclerosis - repeat EKG showing NSR, age indeterminate anterior infarct QTc 475 - UA + nitrites, 3+ LE, +bacteria, WBC, repeat UA + for infection - Ucx first contaminated, repeat showing group D strep/enteroccocus <40k bacteria - no further need for antibiotics Diarrhea -> likely colitis/rule out c diff - CT Abd pelvis without contrast- no signs of colitis, diverticulitis, just diverticulosis. - ordered c diff, fecal calprotectin, stool c&s, ova and parasites negative - can follow up with outpatient GI PO on CKD - possibly due to recent trauma or hypophosphatemia 2/2 diarrhea and poor po intake - renal sono showing normal kidneys - Renal consulted (Dr. Correa) for PO on CKD recommendations. 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 - ACTH <1.1 (low) and AM cortisol 69.6 - nava catheter placed due to retention >900cc, failed voiding trial yesterday , nava was replaced - urology consulted, recs appreciated - tamsulosin not started due to concerns of orthostatic hypotension, continue Proscar Lower Extremity Swelling - DVT study of showing +DVT in L popliteal and superficial femoral vein - started on Eliquis 10mg bid for 7 days and 5mg bid afterwards Hypokalemia - continue potassium supplementation, today 3.4, given additonal 40Meq of Kcl today, continue to monitor - monitor K daily - repeat EKG with no acute changes - 20 MEq daily supplementation Parkinson's Disease - continue home Sinemet - neurology consulted, recs appreciated - Seroquel 12.5mg prn for agitation at night CAD hx - continue home aspirin and atorvastatin Hypothyroidism - decreased synthroid dose 50mcg due to decreased TSH, signifying iatrogenic hyperthyroidism - endocrine consult - will require outpatient f/u for thyroid function tests in 4-6 weeks after discharge FEN - no standing fluids, encourage PO intake - continue to monitor electrolytes and replete as necessary - sodium controlled diet DVT PPX - On Eliquis Dispo - transfer to Med-surg - family is currently debating placement for SNF due to nava catheter placement - Daughter Gladis Gary - spoken with social work and [facility] was sent for SNF in [place], pending approval Problem List - Problems (1) Central hypothyroidism Code(s): 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 - OTHER SPECIFIED HYPOTHYROIDISM (2) Falls frequently Code(s): R29.6 - REPEATED FALLS (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 Code(s): E89.3 - POSTPROCEDURAL HYPOPITUITARISM (4) Urinary retention Code(s): R33.9 - RETENTION OF URINE, UNSPECIFIED (5) Altered mental status Code(s): R41.82 - ALTERED MENTAL STATUS, UNSPECIFIED Qualifiers: Altered mental status type: unspecified Qualified Code(s): R41.82 - Altered mental status, unspecified (6) Diarrhea Code(s): R19.7 - DIARRHEA, UNSPECIFIED (7) Hypokalemia Code(s): E87.6 - HYPOKALEMIA Visit type - Emergency Visit Emergency Visit: Yes ED Registration Date: 03/14/19 Care time: The patient presented to the Emergency Department on the above date and was hospitalized for further evaluation of their emergent condition. - New Patient This patient is new to me today: No - Critical Care Critical Care patient: No
[2019-03-22] MEDS: POLYETHYLENE GLYCOL 3350 119 GM BTL PO SCH (17:55)
[2019-03-22] MEDS: ROSUVASTATIN CA 10 MG TABLET (FP) PO SCH (22:12)
[2019-03-22] MEDS: FINASTERIDE 5 MG TABLET (FP) PO SCH (22:12)
[2019-03-23] MEDS: LEVOTHYROXINE NA 50 MCG TABLET (FP) PO SCH (06:36)
[2019-03-23 07:27] LABS: BLOOD UREA NITROGEN 29.9 mg/dL (7-18); CALCIUM 7.6 mg/dL (8.5-10.1); CREATININE 1.5 mg/dL (0.55-1.3); HEMATOCRIT 30.5 % (35.4-49); HEMOGLOBIN 10.2 GM/dL (11.7-16.9); MAGNESIUM 1.8 mg/dL (1.8-2.4); MCH 29.1 pg (25.7-33.7); MCHC 33.3 g/dl (32.0-35.9); MEAN CELL VOLUME 87.4 fl (80-96); MEAN PLT VOLUME 7.8 fl (7.5-11.1); PLATELET COUNT 137 K/MM3 (134-434); POTASSIUM 3.8 mmol/L (3.5-5.1); RBC 3.49 M/mm3 (4.00-5.60); RDW 15.5 % (11.9-15.9); WHITE BLOOD COUNT 16.8 K/mm3 (4.0-10.0)
--- NOTE | 2019-03-23 09:32 | PN ---
Progress Note (short form) - Note Progress Note: Chief Complaint: no CP, SOB, palps dizzy OFF TELE Current Medications Generic Name Dose Route Start Last Admin Trade Name Jose Eq PRN Reason Stop Dose Admin Apixaban 10 mg 03/20/19 12:00 03/22/19 22:12 Eliquis - PO 03/26/19 22:00 10 mg BID [facility]WALDO Administration Aspirin 81 mg 03/16/19 10:00 03/22/19 08:59 Asa - PO 81 mg DAILY [facility]ALDO Administration Calcium Carbonate 500 mg 03/17/19 10:00 03/22/19 22:12 Os-Gerard 500mg - PO 500 mg BID [facility]ALDO Administration Carbidopa/Levodopa 1 combo 03/16/19 07:00 03/23/19 06:36 Sinemet *Cr* 50/200 - PO 1 combo 0700,1200,1700 [facility]ALDO Administration Cholecalciferol 1,000 unit 03/16/19 10:00 03/22/19 08:59 Vitamin D3 - PO 1,000 unit DAILY [facility]ALDO Administration Finasteride 5 mg 03/19/19 22:00 03/22/19 22:12 Proscar - PO 5 mg HS OSWALDO Administration Hydrocortisone 20 mg 03/21/19 22:00 03/22/19 22:12 Cortef - PO 20 mg BID OSWALDO Administration Lactobacillus Acidophilus 1 tab 03/20/19 16:01 03/22/19 08:59 Bacid - PO 1 tab DAILY OSWALDO Administration Levothyroxine Sodium 50 mcg 03/20/19 07:00 03/23/19 06:36 Synthroid - PO 50 mcg DAILY@0700 OSWALDO Administration Polyethylene Glycol 17 gm 03/22/19 16:58 03/22/19 17:55 Miralax (For Daily Use) - PO 17 gm DAILY [facility]ALDO Administration Potassium Chloride 40 meq 03/23/19 10:00 K-Dur - PO DAILY [facility]ALDO Quetiapine Fumarate 12.5 mg 03/16/19 17:27 Seroquel - PO DAILY PRN AGITATION Rosuvastatin Calcium 10 mg 03/19/19 22:00 03/22/19 22:12 Crestor - PO 10 mg HS [facility]WALDO Administration Vital Signs Period Temp Pulse Resp BP Sys/Miguel Pulse Ox Last 24 Hr 97.6 F-98.3 F 61-71 16-18 120-153/57-88 95 Constitutional: Yes: No Distress Cardiovascular: Yes: Regular Rate and Rhythm Respiratory: Yes: CTA Bilaterally Gastrointestinal: Yes: Soft Edema: Yes Edema: LLE: 1+, RLE: 1+ Neurological: Yes: Alert, no jaundice diaphoresis Labs: CBC, BMP 03/23/19 06:05 03/23/19 06:05 IMP: Resolving Hypokalemia Acute on chronic renal failure Virginie meansormsteph Parkinson's disease CAD (s/p quadruple bypass) Pituitary tumor (s/p resection 1997) Hypothyroidism AMS Diarrhea Falls Hypoalbuminemia REC: 1. Continued adjustment/regulation of steroids as per Endo 2. Renal following: K+ improved. bun/creat remain up--per renal team 3. Agree with holding Amlodipine. Vasodilatory effect may contribute to orthostatic BP changes leading to falls. Patient has underlying PD with autonomic dysfx on that basis. Thus would minimize use of any vasodilatory meds that are not required. 4. CAD chronic/stable with recent echo showing normal LVEF and no sig valve disease. No arrhythmias on tele to explain falls. Pt is followed closely by outside cell plasterer at [facility]. 5. Further w/u of diarrhea as per primary team and GI. 6. Edema likely to 3rd spacing, low albumin; also found to have left le DVT, now on ac
[2019-03-23] MEDS ORDERED: POTASSIUM CHLORIDE TABS 20 MEQ TABLET.ER (FP) PO SCH (10:00)
[2019-03-23] MEDS: CALCIUM (OYSTER SHELL) 500 MG TABLET (FP) PO SCH (10:07)
[2019-03-23] MEDS: APIXABAN 5 MG TABLET PO SCH (10:07)
[2019-03-23] MEDS: ASPIRIN 81 MG CHEWABLE TABLETS PO SCH (10:07)
[2019-03-23] MEDS: LACTOBACILLUS ACIDOPHILUS 1 TABLET PO SCH (10:08)
[2019-03-23] MEDS: CHOLECALCIFEROL (VIT D3) 1,000 UNIT (25 MCG) TABLET PO SCH (10:08)
[2019-03-23] MEDS: HYDROCORTISONE 20 MG TABLET PO SCH (10:17)
[2019-03-23] MEDS: POLYETHYLENE GLYCOL 3350 119 GM BTL PO SCH (10:17)
[2019-03-23] MEDS ORDERED: PT OWN MED DRAWER 7, Y5N ONE (11:21)
[2019-03-23 11:45] VITALS: BP 154/73; PULSE 74; TEMP 97.8
--- NOTE | 2019-03-23 13:34 | DS ---
Physical Exam: SUBJECTIVE: No complaints. No chest pain/SOB/palpitations/lightheadedness. No further diarrhea. No abdominal pain/nausea/vomiting/fever/chills. Nava draining clear urine. OBJECTIVE: Afebrile, Hemodynamically Stable. Last Vital Signs Temp Pulse Resp BP Pulse Ox 97.8 F 74 18 154/73 95 03/23/19 11:44 03/23/19 11:44 03/23/19 11:44 03/23/19 11:44 03/23/19 09:00 Lungs - clear to auscultation Abdomen - Soft, non-tender. Bowel Sounds normal. Extremities - bruised upper extremities, LE edema ++ Neuro - AAO x 3. Tone/Power normal. Laboratory Results - last 24 hr 03/23/19 03/23/19 03/23/19 06:05 06:05 06:05 WBC 16.8 H RBC 3.49 L Hgb 10.2 L Hct 30.5 L MCV 87.4 MCH 29.1 MCHC 33.3 RDW 15.5 Plt Count 137 MPV 7.8 PTT (Actin FS) 28.1 Sodium 142 Potassium 3.8 Chloride 106 Carbon Dioxide 30 Anion Gap 6 L BUN 29.9 H Creatinine 1.5 H Est GFR (CKD-EPI)AfAm 50.95 Est GFR (CKD-EPI)NonAf 43.96 Random Glucose 93 Calcium 7.6 L Magnesium 1.8 Discharge Medications Medication Instructions Recorded Amlodipine Besylate 5 mg DAILY 03/14/19 Aspirin 81 mg DAILY 03/14/19 Carbidopa/Levodopa [Carbidopa-Levo 1 tab TID 03/14/19 ER 50-200 Tab] Cholecalciferol (Vitamin D3) 1,000 unit DAILY 03/14/19 [Vitamin D3] Finasteride 5 mg DAILY 03/14/19 Polyethylene Glycol 3350 17 gm DAILY 03/14/19 Rosuvastatin [Crestor -] 40 mg DAILY 03/14/19 Testosterone Cypionate 200 vial ASDIR 03/14/19 Ubidecarenone [Co Q-10] 30 mg DAILY 03/14/19 Apixaban [Eliquis -] 10 mg PO BID #70 tablet 03/20/19 Calcium (Oyster Shell) [Os-Gerard 500 mg PO BID #30 tablet 03/20/19 500MG -] Hydrocortisone [Cortef -] 20 mg PO DAILY #60 tablet 03/20/19 Lactobacillus Acidophilus [Bacid -] 1 tab PO DAILY #30 tab 03/20/19 Levothyroxine [Synthroid -] 50 mcg PO DAILY@0700 #30 tablet 03/20/19 Potassium Chloride [K-Dur -] 20 meq PO DAILY #30 tablet.er 03/20/19 Quetiapine Fumarate [Seroquel -] 12.5 mg PO HS PRN #30 tablet 03/20/19 Hydrocortisone [Cortef -] 5 mg PO DAILY #24 tablet 03/21/19 Hydrocortisone [Cortef -] 20 mg PO BID #8 tablet 03/21/19 Date of Admission:03/14/19 Date of Discharge: 03/23/19 Minutes to complete discharge: 45 Discharge Summary Problems reviewed: Yes Reason For Visit: SYNCOPE AND COLLAPSE Hospital Course: 79 year old male with history of Parkinson Disease/Shy Drager Syndrome, Pituitary tumor (s/p resection), coronary artery disease (s/p CABG x4 vessels), hypothyroidism, HLD, HTN, BPH, presents with recurrent falls, poor oral intake, loose stool, and altered mental status. He was found to have PO and severe electrolyte abnormalities including K 2.2 and was treated for these medical conditions as follows: 1. Acute Metabolic Encephalopathy likely sec to dehydration due to poor oral intake and reported diarrhea - resolved. AAO x [address] Brain negative for acute findings. Neurology consulted and recommended Quetiapine 12.5-25 mg QHS PRN for agitation/ sundowning. 2. Ambulatory Dysfunction/Falls - sec to above CT Head/C-Spine negative for acute findings. Echo - normal. Anthony lin appreciated for PD/Shy Drager's - recommend continuing Carbidopa/ Levodopa. 3. Severe Hypokalemia - sec to poor oral intake, GI losses, Florinef, Hydrocortizone (for Adrenal dysfunction s/p Hx pituitary tumor resection) Resolved - Oral and IV repletion PRN Normally on fludrocortizone and Hydrocotizone s/p pituitary tumor resection - held as per Endocrinology in favor of IV Solucortef initially, now transitioned to oral Hydrocotisone - slow taper as per Endo (discharged on 20mg twice a day, to reduce your dose by 5mg every fourth day until you are taking 25mg once daily ). Further steroid titration by Endocrinology as out-patient. 4. PO on CKD - Creat much improved. Renal US - no obstruction Nephrology to follow as out-patient. 5. Diarrhea - resolved. Cdiff/Stool Cx negative. CT A/P - Prostate enlargement, Diverticulosis, bibasilar atelectasis. 6. DVT LLE - Extensive - started on Eliquis dosing as per DVT protocol. 7. Hypothyroidism, on Synthroid - TSH low at 0.29. Synthroid dose reduced to 50mcg. Endocrinology to follow as out-patient. 8. Coronary artery disease (s/p CABG x4 vessels) - continue ASA. To resume Statin on discharge. 9. HLD - on Statin. To be resumed on discharge. 9. HTN - Norvasc held due to peripheral vasodilatory effect and possible contribution to orthostasis/syncope/falls. 10. Urinary retention secondary to BPH - Proscar initially held by Endocrinology - now resumed. Failed TOV 03/20 and nava re-inserted. Family does not feel able to manage nava at home. For transfer to SNF with eventual TOV, nava removal and discharge home. Seen by Urology - for outpatient follow up. Medically optimized for discharge with Nephrology, Endocrinology, PCP, Urology follow up. Needs repeat TSH in 4-6 weeks. Condition: Improved - Instructions Diet, Activity, Other Instructions: You were admitted to the hospital because of fall because of dehydration likely because of several episodes of diarrhea. You were also found to have low potassium. You were given potassium while you were in the hospital. Your medication regimen of hydrocortisone, fludrocortisone, and levothyroxine was changed while you were in the hospital. You were seen by the spine specialist ( hormone doctor) who recommended changing your hydrocortisone dose and stopping the fludrocortisone. You had a head CT scan and cervical spine CT which did not show any new findings. You were seen by the neurologist (brain doctor) who recommended that you continued taking your Sinemet and recommended to take Seroquel as needed for any agitation at night. Your diarrhea resolved while you were in the hospital and did not show any infection while you were here. You were seen by a music rehabilitation therapist who recommended to follow up in the outpatient clinic. You had a scan of your leg which found a clot in your left leg. You were started on a blood thinner medication to treat the clot. MEDICATIONS STOP taking Florinef. STOP taking amlodipine. START taking hydrocortisone 20mg twice a day. Every fourth day reduce your dose by 5mg until you are taking 25mg once daily. Take 20mg twice a day between 03/22/19 to 03/24/19 Take 15mg twice a day between 03/25/19 to 03/28/19 Take 25mg daily starting on 03/29/19 and follow up with your spine specialist. Johnson your levothyroxine dose to 50mcg daily in the morning. START taking Eliquis 10mg twice a day for 7 days. Your last dose of 10 mg will be on March 26. Afterwards START taking Eliquis 5mg twice a day. Follow up with your primary care doctor for continued management of the clot you have in your leg. START taking potassium chloride 20Meq once daily. START taking Calcium supplementation once daily. START taking Seroquel 12.5mg at night if needed for any agitation. START taking Bacid, 1 pill daily. Continue taking all of your other home medications as prescribed. REFERRALS Please follow up with your primary care provider, Dr. Elsa Forrester, within 1 week. Please follow up with the urologist, Dr. Wade Collado, within 1 week. Please follow up with your industrial retrofit designer, Dr. Kelly Correa, within 1 week. Please follow up with your neurologist, Dr. Tj Arndt, within 1 week. Please follow up with the music rehabilitation therapist, Dr. Elsa Mckeon, within 1 week. Please follow up with the spine specialist, Dr. Sushil Ferguson, within 1 week. SPECIAL INSTRUCTIONS Be careful standing up and walking around while you are on the blood thinner medication to prevent falls. Use you walker or other assistive device when you are walking around. You will need laboratory testing on MondayMarch 22, to assess your kidney function and potassium levels in your blood. If your nava catheter is clogged, your visiting nurse or aide may flush the catheter to maintain flow. If the nava catheter becomes dislodged or is removed , nava catheter may be replaced. Please follow up with you urologist, for continued care of your nava catheter. If you have any symptoms of chest pain, shortness of breath, fever, worsening diarrhea, bloody bowel movements, dizziness, lightheadedness, weakness, inability to walk or other general feelings of unwellness, please call 911 or go to your nearest emergency room Referrals: Tj Arndt MD [Staff Physician] - 1 Week Wade Collado MD [Staff Physician] - 1 Week Barrera Javier MD [Staff Physician] - 1 Week Elsa Mckeon DO [Staff Physician] - 1 Week Elsa Forrester MD [Non Staff, Medical] - 1 Week Sushil Ferguson MD [Staff Physician] - 1 Week Kelly Correa MD [Staff Physician] - 1 Week Disposition: CUSTODIAL FACILITY - Home Medications Comprehensive Discharge Medication List: Ambulatory Orders Amlodipine Besylate 5 mg DAILY 03/14/19 Aspirin 81 mg DAILY 03/14/19 Carbidopa/Levodopa [Carbidopa-Levo ER 50-200 Tab] 1 tab TID 03/14/19 Cholecalciferol (Vitamin D3) [Vitamin D3] 1,000 unit DAILY 03/14/19 Finasteride 5 mg DAILY 03/14/19 Polyethylene Glycol 3350 17 gm DAILY 03/14/19 Rosuvastatin [Crestor -] 40 mg DAILY 03/14/19 Testosterone Cypionate 200 vial ASDIR 03/14/19 Ubidecarenone [Co Q-10] 30 mg DAILY 03/14/19 Apixaban [Eliquis -] 10 mg PO BID #70 tablet 03/20/19 Calcium (Oyster Shell) [Os-Gerard 500MG -] 500 mg PO BID #30 tablet 03/20/19 Hydrocortisone [Cortef -] 20 mg PO DAILY #60 tablet 03/20/19 Lactobacillus Acidophilus [Bacid -] 1 tab PO DAILY #30 tab 03/20/19 Levothyroxine [Synthroid -] 50 mcg PO DAILY@0700 #30 tablet 03/20/19 Potassium Chloride [K-Dur -] 20 meq PO DAILY #30 tablet.er 03/20/19 Quetiapine Fumarate [Seroquel -] 12.5 mg PO HS PRN #30 tablet 03/20/19 Hydrocortisone [Cortef -] 5 mg PO DAILY #24 tablet 03/21/19 Hydrocortisone [Cortef -] 20 mg PO BID #8 tablet 03/21/19 This patient is new to me today: No Emergency Visit: Yes ED Registration Date: 12/05/19 Care time: The patient presented to the Emergency Department on the above date and was hospitalized for further evaluation of their emergent condition. Critical Care patient: No - Discharge Referral Referred to [facility] No
== END 2019-03-23 13:02 | DRG 682 ==
LOC: JER 13:23 → JERBED 16:38 → J4S 03-15 18:08
PROVIDERS: ADMIT Internal Medicine
DX: N17.9 Acute kidney failure, unspecified (principal); G93.41 Metabolic encephalopathy; J98.11 Atelectasis; I82.432 Acute embolism and thrombosis of left popliteal vein; I82.412 Acute embolism and thrombosis of left femoral vein; G90.3 Multi-system degeneration of the autonomic nervous system; G20 Parkinson's disease; I25.10 Atherosclerotic heart disease of native coronary artery without angina pectoris; Z95.1 Presence of aortocoronary bypass graft; E03.9 Hypothyroidism, unspecified; N40.0 Benign prostatic hyperplasia without lower urinary tract symptoms; R29.6 Repeated falls; E87.6 Hypokalemia; R62.7 Adult failure to thrive; E88.09 Other disorders of plasma-protein metabolism, not elsewhere classified; D64.9 Anemia, unspecified; E83.39 Other disorders of phosphorus metabolism; M48.02 Spinal stenosis, cervical region; E86.0 Dehydration; K52.9 Noninfective gastroenteritis and colitis, unspecified; E78.5 Hyperlipidemia, unspecified; N18.9 Chronic kidney disease, unspecified; E89.3 Postprocedural hypopituitarism; Z87.891 Personal history of nicotine dependence; I12.9 Hypertensive chronic kidney disease with stage 1 through stage 4 chronic kidney disease, or unspecified chronic kidney disease; R33.8 Other retention of urine; N40.1 Benign prostatic hyperplasia with lower urinary tract symptoms
CPT/HCPCS: 36415; 70450-TC; 71045-TC-FY; 72125-TC; 72170-TC-FY; 73523-TC-FY; 74176-TC; 76775-TC; 80048; 80053; 80307; 81003; 82024; 82040; 82533; 82550; 82553; 82607; 82962; 83735; 83880; 83930; 83935; 83970; 83993; 84100; 84132; 84439; 84443; 84484; 85025; 85027; 85610; 85730; 86593; 87045; 87046; 87086; 87177; 87186; 87205; 87209; 87324; 87449; 93005; 93010; 93306-TC; 93970-TC; 94761; 97116-GP; 97162-GP; 99285-25; J1644; J3480; J7030